=== PATIENT | male | born 1995 | race Caucasian/White ===

== ENCOUNTER 2018-04-04 15:07 | Emergency (ER) | payer SELFPAY ==
[2018-04-04] MEDS ORDERED: ACETAMINOPHEN 500 MG TAB ONE (15:54)
--- NOTE | 2018-04-04 16:31 | EDPHYS ---
Physician Documentation [facility] Name: Abdelrahman Chavez Age: 22 yrs Sex: Male : 1995 Arrival Date: 04/04/2018 Time: 15:11 Bed 25 Private MD: ED Physician Dada Gracia HPI: 04/04 15:41 This 22 yrs old Male presents to ER via Ambulatory with complaints of Flu jr8 symptoms. 15:41 Onset: The symptoms/episode began/occurred acutely, today. Duration: The symptoms are jr8 continuous. The patient's shortness of breath is aggravated by coughing. Associated signs and symptoms: Pertinent positives: non-productive cough, fever, sore throat, rhinorrhea . Severity of symptoms: At their worst the symptoms were moderate in the emergency department the symptoms are unchanged. The patient has not experienced similar symptoms in the past. The patient has not recently seen a physician. Historical: - Allergies: 15:18 No Known Allergies; aj - Home Meds: 15:18 None [Active]; aj - PMHx: 15:18 Anxiety; Depression; aj - PSHx: 15:18 None; aj - Immunization history:: Adult Immunizations up to date. - Social history:: Smoking status: Patient/guardian denies using tobacco, Patient uses street drugs, marijuana. - Ebola Screening: : Patient negative for fever greater than or equal to 101.5 degrees Fahrenheit, and additional compatible Ebola Virus Disease symptoms Patient denies exposure to infectious person Patient denies travel to an Ebola-affected area in the 21 days before illness onset No symptoms or risks identified at this time. ROS: 15:41 Eyes: Negative for injury, pain, redness, and discharge, Neck: Negative for injury, jr8 pain, and swelling, Cardiovascular: Negative for chest pain, palpitations, and edema, Abdomen/GI: Negative for abdominal pain, nausea, vomiting, diarrhea, and constipation, Back: Negative for injury and pain, MS/Extremity: Negative for injury and deformity, Skin: Negative for injury, rash, and discoloration, Neuro: Negative for headache, weakness, numbness, tingling, and seizure. 15:41 Constitutional: Positive for body aches, chills, fever. 15:41 ENT: Positive for rhinorrhea, sinus congestion, sore throat. 15:41 Respiratory: Positive for cough, shortness of breath, wheezing, Negative for dyspnea on exertion, sputum production. Exam: 15:41 Constitutional: This is a well developed, well nourished patient who is awake, alert, jr8 and in no acute distress. Eyes: Pupils equal round and reactive to light, extra-ocular motions intact. Lids and lashes normal. Conjunctiva and sclera are non-icteric and not injected. Cornea within normal limits. Periorbital areas with no swelling, redness, or edema. ENT: Nares patent. No nasal discharge, no septal abnormalities noted. Tympanic membranes are normal and external auditory canals are clear. Oropharynx with no redness, swelling, or masses, exudates, or evidence of obstruction, uvula midline. Mucous membranes moist. Neck: Trachea midline, no thyromegaly or masses palpated, and no cervical lymphadenopathy. Supple, full range of motion without nuchal rigidity, or vertebral point tenderness. No Meningismus. Cardiovascular: Sinus tachycardia with a normal S1 and S2. No gallops, murmurs, or rubs. Normal PMI, no JVD. No pulse deficits. Respiratory: Lungs have equal breath sounds bilaterally, clear to auscultation and percussion. No rales, rhonchi or wheezes noted. No increased work of breathing, no retractions or nasal flaring. Abdomen/GI: Soft, non-tender, with normal bowel sounds. No distension or tympany. No guarding or rebound. No evidence of tenderness throughout. Back: No spinal tenderness. No costovertebral tenderness. Full range of motion. Skin: Warm, dry with normal turgor. Normal color with no rashes, no lesions, and no evidence of cellulitis. MS/ Extremity: Pulses equal, no cyanosis. Neurovascular intact. Full, normal range of motion. Neuro: Awake and alert, GCS 15, oriented to person, place, time, and situation. Cranial nerves II-XII grossly intact. Motor strength 5/5 in all extremities. Sensory grossly intact. Cerebellar exam normal. Normal gait. Vital Signs: 15:18 BP 129 / 96; Pulse 119; Resp 21; Temp 100.7; Pulse Ox 99% on R/A; Weight 147.42 kg; aj Height 5 ft. 8 in. (172.72 cm); 17:17 BP 113 / 76; Pulse 83; Resp 17; Temp 99.2(O); Pulse Ox 100% on R/A; Pain 4/10; ed1 15:18 Body Mass Index 49.42 (147.42 kg, 172.72 cm) aj MDM: 15:21 Patient medically screened. jr8 16:28 Data reviewed: vital signs, nurses notes, lab test result(s), Flu: positive. Data jr8 interpreted: Pulse oximetry: on room air is 99 %. Interpretation: normal. Counseling: I had a detailed discussion with the patient and/or guardian regarding: the historical points, exam findings, and any diagnostic results supporting the discharge/admit diagnosis, lab results, the need for outpatient follow up, a family practitioner, to return to the emergency department if symptoms worsen or persist or if there are any questions or concerns that arise at home. 04/04 15:38 Order name: Strep; Complete Time: 16:28 8 04/04 15:38 Order name: Influenza Screen (a \T\ B); Complete Time: 16:28 [facility] 04/04 16:28 Order name: Throat Culture EDMS Administered Medications: 15:48 Drug: Tylenol 1000 mg Route: PO; ed1 17:19 Follow up: Response: No adverse reaction; Temperature is decreased ed1 16:40 Drug: Tamiflu 75 mg Route: PO; ed1 17:19 Follow up: Response: Medication administered at discharge. ed1 Disposition: 18:58 Co-signature as Attending Physician, Dada Gracia MD I agree with the assessment and kdr plan of care. Disposition: 04/04/18 16:29 Discharged to Home. Impression: Influenza due to identified novel influenza A virus. - Condition is Stable. - Discharge Instructions: Influenza, Adult. - Prescriptions for Tamiflu 75 mg Oral Capsule - take 1 capsule by ORAL route every 12 hours for 5 days; 10 capsule. - Medication Reconciliation Form, Thank You Letter, Antibiotic Education, Prescription Opioid Use form. - Follow up: Private Physician; When: As needed; Reason: Recheck today's complaints, Continuance of care, Re-evaluation by your physician. - Problem is new. - Symptoms have improved. Signatures: Dispatcher [employer] EDMS Etelvina Ford RN RN aj Rittger, Kevin, MD MD kdr Riggs, Erika, SENIOR IT ASSISTANT SENIOR IT ASSISTANT ed1 Spencer Jones PA PA jr8 Corrections: (The following items were deleted from the chart) 17:20 16:29 04/04/2018 16:29 Discharged to Home. Impression: Influenza due to identified ed1 novel influenza A virus. Condition is Stable. Forms are Medication Reconciliation Form, Thank You Letter, Antibiotic Education, Prescription Opioid Use. Follow up: Private Physician; When: As needed; Reason: Recheck today's complaints, Continuance of care, Re-evaluation by your physician. Problem is new. Symptoms have improved. jr8
--- NOTE | 2018-04-04 16:31 | ER ---
Nurse's Notes [facility] Name: Abdelrahman Chavez Age: 22 yrs Sex: Male : 1995 Arrival Date: 04/04/2018 Time: 15:11 Bed 25 Private MD: Diagnosis: Influenza due to identified novel influenza A virus Presentation: 04/04 15:17 Presenting complaint: Patient states: Cough, congestion, sore throat, and SOB for 10 aj days. Transition of care: patient was not received from another setting of care. Onset of symptoms was March 25, 2018. Risk Assessment: Do you want to hurt yourself or someone else? Patient reports no desire to harm self or others. Initial Sepsis Screen: Does the patient meet any 2 criteria? HR > 90 bpm. Does the patient have a suspected source of infection? No. Patient's initial sepsis screen is negative. Care prior to arrival: None. 15:17 Method Of Arrival: Ambulatory 15:17 Acuity: NEAL 3 aj Triage Assessment: 15:18 General: Appears in no apparent distress. comfortable, Behavior is calm, cooperative, aj appropriate for age. Pain: Denies pain. EENT: Reports nasal congestion nasal discharge pain when swallowing. Neuro: Level of Consciousness is awake, alert, obeys commands, Oriented to person, place, time, situation, Appropriate for age. Respiratory: Reports shortness of breath cough that is Airway is patent Respiratory effort is even, unlabored, Respiratory pattern is regular, symmetrical, Breath sounds are clear Onset: The symptoms/episode began/occurred 1- days ago, the patient has mild shortness of breath. Derm: Skin is intact, is healthy with good turgor, Skin is pink, warm \T\ dry. normal. Historical: - Allergies: 15:18 No Known Allergies; aj - Home Meds: 15:18 None [Active]; aj - PMHx: 15:18 Anxiety; Depression; aj - PSHx: 15:18 None; aj - Immunization history:: Adult Immunizations up to date. - Social history:: Smoking status: Patient/guardian denies using tobacco, Patient uses street drugs, marijuana. - Ebola Screening: : Patient negative for fever greater than or equal to 101.5 degrees Fahrenheit, and additional compatible Ebola Virus Disease symptoms Patient denies exposure to infectious person Patient denies travel to an Ebola-affected area in the 21 days before illness onset No symptoms or risks identified at this time. Screenin:30 Abuse screen: Denies threats or abuse. Denies injuries from another. Nutritional ed1 screening: No deficits noted. Tuberculosis screening: No symptoms or risk factors identified. Fall Risk None identified. Assessment: 15:30 General: Appears in no apparent distress. Behavior is calm, cooperative. Pain: ed1 Complains of pain in generalized Pain does not radiate. Pain currently is 5 out of 10 on a pain scale. Quality of pain is described as aching, Pain began 2-3 days ago. Is continuous. Neuro: Level of Consciousness is awake, alert, obeys commands, Oriented to person, place, time, situation. Cardiovascular: Denies chest pain, Heart tones S1 S2 present. Cardiovascular: Rhythm is regular. Respiratory: Reports shortness of breath on exertion Airway is patent Respiratory effort is even, unlabored, Respiratory pattern is regular, symmetrical. GI: No signs and/or symptoms were reported involving the gastrointestinal system. : No signs and/or symptoms were reported regarding the genitourinary system. EENT: Reports pain when swallowing. Derm: Skin is pink, warm \T\ dry. 15:50 Reassessment: Patient appears in no apparent distress at this time. I agree with above iw assessment by Elena SHIELDS. 17:17 Reassessment: Patient appears in no apparent distress at this time. No changes from ed1 previously documented assessment. Patient and/or family updated on plan of care and expected duration. Pain level reassessed. Patient is alert, oriented x 3, equal unlabored respirations, skin warm/dry/pink. Vital Signs: 15:18 BP 129 / 96; Pulse 119; Resp 21; Temp 100.7; Pulse Ox 99% on R/A; Weight 147.42 kg; aj Height 5 ft. 8 in. (172.72 cm); 17:17 BP 113 / 76; Pulse 83; Resp 17; Temp 99.2(O); Pulse Ox 100% on R/A; Pain 4/10; ed1 15:18 Body Mass Index 49.42 (147.42 kg, 172.72 cm) aj ED Course: 15:11 Patient arrived in ED. mr 15:18 Triage completed. aj 15:18 Arm band placed on left wrist. Patient placed in an exam room. aj 15:21 Spencer Jones PA is PHCP. jr8 15:21 Dada Gracia MD is Attending Physician. jr8 15:28 Elena Morgan LVN is Primary Nurse. ed1 15:30 Patient has correct armband on for positive identification. Bed in low position. Call ed1 light in reach. 17:17 No provider procedures requiring assistance completed. Patient did not have IV access ed1 during this emergency room visit. Administered Medications: 15:48 Drug: Tylenol 1000 mg Route: PO; ed1 17:19 Follow up: Response: No adverse reaction; Temperature is decreased ed1 16:40 Drug: Tamiflu 75 mg Route: PO; ed1 17:19 Follow up: Response: Medication administered at discharge. ed1 Outcome: 16:29 Discharge ordered by MD. jr8 17:17 Discharged to home ambulatory. ed1 17:17 Condition: good 17:17 Discharge instructions given to patient, Instructed on discharge instructions, follow up and referral plans. medication usage, Demonstrated understanding of instructions, follow-up care, medications, Prescriptions given X 1. 17:20 Patient left the ED. ed1 Signatures: Etelvina Ford, RN Eugenia Peterson Irene, RN Elena Piper LVN LVN ed1 Spencer Jones PA PA jr
[2018-04-04] MEDS ORDERED: OSELTAMIVIR 75 MG CAP ONE (16:58)
== END 2018-04-04 17:20 | disposition home or self-care (01) ==
LOC: ER 15:07
DX: J10.1 Influenza due to other identified influenza virus with other respiratory manifestations (principal)
CPT/HCPCS: 87070; 87081; 87804; 99283

== ENCOUNTER 2019-07-01 | Emergency (ER) | payer SELFPAY ==
--- NOTE | 2019-07-01 08:57 | EDPHYS ---
Physician Documentation [facility] Name: Abdelrahman Chavez Age: 23 yrs Sex: Male : 1995 Arrival Date: 07/01/2019 Time: 06:24 Bed 8 Private MD: ED Physician Carlos A Noble HPI: 07/01 07:00 This 23 yrs old Male presents to ER via Ambulatory with complaints of Ear kb Pain, Side Pain. 07:00 The patient presents with pain, moderate. The complaints affect the left ear. Modifying kb factors: The symptoms are alleviated by nothing, the symptoms are aggravated by pulling on ears, touching. The patient has not experienced similar symptoms in the past. The patient has not recently seen a physician. 07:01 Onset: The symptoms/episode began/occurred 4 day(s) ago. Associated signs and symptoms: kb The patient has no apparent associated signs or symptoms. Severity of symptoms: At their worst the symptoms were moderate in the emergency department the symptoms are unchanged. Pt reports left ear pain for about 4 days and sciatic pain for 3 months. Denies urinary symptoms, numbness, tingling.. Historical: - Allergies: 06:41 No Known Allergies; bb - Home Meds: 06:41 None [Active]; bb - PMHx: 06:41 Anxiety; Depression; bb - PSHx: 06:41 None; bb - Immunization history:: Adult Immunizations up to date. - Coronavirus screen:: The patient has NOT traveled to [place] in the past 14 days. Proceed with normal triage process as indicated. - Social history:: Smoking status: unknown Patient uses street drugs, marijuana. - Ebola Screening: : No symptoms or risks identified at this time. ROS: 06:54 Constitutional: Negative for fever, chills, and weight loss, Neck: Negative for injury, kb pain, and swelling, Cardiovascular: Negative for chest pain, palpitations, and edema, Respiratory: Negative for shortness of breath, cough, wheezing, and pleuritic chest pain, Abdomen/GI: Negative for abdominal pain, nausea, vomiting, diarrhea, and constipation, : Negative for injury, bleeding, discharge, and swelling, MS/Extremity: Negative for injury and deformity, Skin: Negative for injury, rash, and discoloration, Neuro: Negative for headache, weakness, numbness, tingling, and seizure. 06:54 ENT: Positive for drainage from ear(s), ear pain. 06:54 Back: Positive for pain at rest, pain with movement, radiated pain, of the left low back. Exam: 06:54 Constitutional: This is a well developed, well nourished patient who is awake, alert, kb and in no acute distress. Head/Face: Normocephalic, atraumatic. Neck: Trachea midline, no thyromegaly or masses palpated, and no cervical lymphadenopathy. Supple, full range of motion without nuchal rigidity, or vertebral point tenderness. No Meningismus. Chest/axilla: Normal chest wall appearance and motion. Nontender with no deformity. No lesions are appreciated. Cardiovascular: Regular rate and rhythm with a normal S1 and S2. No gallops, murmurs, or rubs. Normal PMI, no JVD. No pulse deficits. Respiratory: Lungs have equal breath sounds bilaterally, clear to auscultation and percussion. No rales, rhonchi or wheezes noted. No increased work of breathing, no retractions or nasal flaring. Abdomen/GI: Soft, non-tender, with normal bowel sounds. No distension or tympany. No guarding or rebound. No evidence of tenderness throughout. Skin: Warm, dry with normal turgor. Normal color with no rashes, no lesions, and no evidence of cellulitis. MS/ Extremity: Pulses equal, no cyanosis. Neurovascular intact. Full, normal range of motion. Neuro: Awake and alert, GCS 15, oriented to person, place, time, and situation. Cranial nerves II-XII grossly intact. Motor strength 5/5 in all extremities. Sensory grossly intact. Cerebellar exam normal. Normal gait. 06:54 ENT: External ear(s): are unremarkable, Ear canal(s): purulent discharge, that is minimal, in the left canal, swelling, that is moderate, of the left canal, TM's: are normal, Nose: is normal, Mouth: is normal. 06:54 Back: pain, that is moderate, of the left low back, ROM is normal, normal spinal alignment noted. Vital Signs: 06:41 BP 132 / 50; Pulse 80; Resp 16 S; Temp 98.4(O); Pulse Ox 100% on R/A; Weight 131.54 kg bb (R); Height 5 ft. 9 in. (175.26 cm) (R); Pain 8/10; 06:41 Body Mass Index 42.83 (131.54 kg, 175.26 cm) bb MDM: 06:29 Patient medically screened. kb 06:46 Data reviewed: vital signs, nurses notes. Data interpreted: Pulse oximetry: on room air kb is 100 %. Interpretation: normal. 07:00 Counseling: I had a detailed discussion with the patient and/or guardian regarding: the kb historical points, exam findings, and any diagnostic results supporting the discharge/admit diagnosis, the need for outpatient follow up, a family practitioner, to return to the emergency department if symptoms worsen or persist or if there are any questions or concerns that arise at home. Administered Medications: No medications were administered Disposition: 07:09 Co-signature as Attending Physician, Carlos A Noble MD I agree with the assessment and andrew plan of care. Disposition: 07/01/19 06:50 Discharged to Home. Impression: Other otitis externa, left ear, Sciatica, left side. - Condition is Stable. - Discharge Instructions: Ear Drops, Adult, [id number], Sciatica, [id number]. - Prescriptions for Cortisporin 3.5- 10,000-1 mg/mL-unit/mL-% Otic solution - instill 4 drop by OTIC route 4 times per day for 7 days; 1 bottle. Cyclobenzaprine 10 mg Oral Tablet - take 1 tablet by ORAL route every 8 hours As needed; 30 tablet. Diclofenac Sodium 75 mg Oral Tablet Sustained Release - take 1 tablet by ORAL route 2 times per day; 30 tablet. - Medication Reconciliation Form, Thank You Letter, Antibiotic Education, Prescription Opioid Use form. - Follow up: Emergency Department; When: As needed; Reason: Worsening of condition. Follow up: Private Physician; When: 2 - 3 days; Reason: Recheck today's complaints, Continuance of care, Re-evaluation by your physician. Signatures: Chloé Saez, TERESA GIBBS-Carlos A Desir MD MD cha Ballard, Brenda, LYLE RN Mike Watson RN RN rv Corrections: (The following items were deleted from the chart) 07:02 07:01 Pt reports left ear pain for about 4 days and sciatic pain for 3 months. . kb kb 07:07 06:50 07/01/2019 06:50 Discharged to Home. Impression: Other otitis externa, left ear; rv Sciatica, left side. Condition is Stable. Forms are Medication Reconciliation Form, Thank You Letter, Antibiotic Education, Prescription Opioid Use. Follow up: Emergency Department; When: As needed; Reason: Worsening of condition. Follow up: Private Physician; When: 2 - 3 days; Reason: Recheck today's complaints, Continuance of care, Re-evaluation by your physician. kb
--- NOTE | 2019-07-01 08:57 | ER ---
Nurse's Notes [facility] Name: Abdelrahman Chavez Age: 23 yrs Sex: Male : 1995 Arrival Date: 07/01/2019 Time: 06:24 Bed 8 Private MD: Diagnosis: Other otitis externa, left ear;Sciatica, left side Presentation: 07/01 06:39 Presenting complaint: Patient states: he has been having an earache and toothache since this weekend with swelling to his face he is also still having sciatic nerve pain which he has a history of but it hasn't gone away since [place]. Transition of care: patient was not received from another setting of care. Onset of symptoms was June 29, 2019. Risk Assessment: Do you want to hurt yourself or someone else? Patient reports no desire to harm self or others. Initial Sepsis Screen: Does the patient meet any 2 criteria? No. Patient's initial sepsis screen is negative. Does the patient have a suspected source of infection? No. Patient's initial sepsis screen is negative. Care prior to arrival: None. 06:39 Method Of Arrival: Ambulatory 06:39 Acuity: NEAL 3 bb Triage Assessment: 07:06 General: Behavior is calm, cooperative. rv Historical: - Allergies: 06:41 No Known Allergies; bb - Home Meds: 06:41 None [Active]; bb - PMHx: 06:41 Anxiety; Depression; bb - PSHx: 06:41 None; bb - Immunization history:: Adult Immunizations up to date. - Coronavirus screen:: The patient has NOT traveled to [place] in the past 14 days. Proceed with normal triage process as indicated. - Social history:: Smoking status: unknown Patient uses street drugs, marijuana. - Ebola Screening: : No symptoms or risks identified at this time. Screenin:06 Abuse screen: Denies threats or abuse. Denies injuries from another. Nutritional rv screening: No deficits noted. Tuberculosis screening: No symptoms or risk factors identified. Fall Risk None identified. Assessment: 07:05 General: Appears in no apparent distress. Pain: Complains of pain in left ear. Neuro: rv Level of Consciousness is awake, alert, obeys commands, Oriented to person, place, time, situation. Cardiovascular: Patient's skin is warm and dry. Respiratory: Airway is patent. EENT: Tympanic membrane reddened on left ear. Vital Signs: 06:41 BP 132 / 50; Pulse 80; Resp 16 S; Temp 98.4(O); Pulse Ox 100% on R/A; Weight 131.54 kg bb (R); Height 5 ft. 9 in. (175.26 cm) (R); Pain 8/10; 06:41 Body Mass Index 42.83 (131.54 kg, 175.26 cm) ED Course: 06:24 Patient arrived in ED. cl3 06:25 Chloé Saez [facility]-C [facility]. kb 06:25 Carlos A Noble MD is Attending Physician. kb 06:41 Triage completed. bb 06:41 Arm band placed on Patient placed in an exam room. bb 07:05 Mike Francois, RN is Primary Nurse. rv 07:06 Patient has correct armband on for positive identification. rv 07:06 No provider procedures requiring assistance completed. Patient did not have IV access rv during this emergency room visit. Administered Medications: No medications were administered Outcome: 06:50 Discharge ordered by MD. kb 07:06 Discharged to home ambulatory. rv 07:06 Condition: good 07:06 Discharge instructions given to patient, family, Instructed on discharge instructions, follow up and referral plans. medication usage, Demonstrated understanding of instructions, follow-up care, medications, Prescriptions given X 3. 07:07 Patient left the ED. rv Signatures: Chloé Saez FNP-C FNP-Ckb Ballard, Brenda, RN RN bb Vicente, Ronaldo, RN RN Elodia Brown cl3
== END 2019-07-01 07:07 | disposition home or self-care (01) ==
CPT/HCPCS: 99282

== ENCOUNTER 2019-10-21 14:09 | Inpatient (IN) | payer SELFPAY ==
[2019-10-21 15:54] LABS: Absolute Lymphocytes (CBC) 1.7 K/uL (0.7-4.9); Basophils % 0.4 % (0-1.3); Hematocrit 51.4 % (39.6-49.0); Lymphocytes % 9.7 % (15.3-44.8); MPV 9.7 fL (7.6-11.3); RBC Red Blood Cell Count 5.93 M/uL (4.33-5.43)
[2019-10-21] MEDS ORDERED: FAMOTIDINE 20 MG/2 ML VIAL IV ONE (15:57)
[2019-10-21] MEDS ORDERED: MORPHINE 4 MG/ML SYR ONE (16:29)
[2019-10-21] MEDS ORDERED: ONDANSETRON 4 MG/2 ML VIAL ONE (16:29)
[2019-10-21] MEDS ORDERED: NA CHLORIDE 0.9% 1,000 ML ONE (16:29)
[2019-10-21 16:31] LABS: ALT/SGPT 43 U/L (12-78); AST/SGOT 18 U/L (15-37); Alkaline Phosphatase 94 U/L (45-117); BUN Blood Urea Nitrogen 10 mg/dL (7-18); Bicarbonate 29 mmol/L (21-32); Bilirubin Direct 0.2 mg/dL (0-0.2); Bilirubin Total 0.7 mg/dL (0.2-1.0); Glucose Level 110 mg/dL (74-106); Lipase 24 U/L (73-393); Potassium 3.5 mmol/L (3.5-5.1); Protein, Total 8.5 g/dL (6.4-8.2); Sodium Level 139 mmol/L (136-145)
--- NOTE | 2019-10-21 17:15 | RAD REPORT ---
EXAM DESCRIPTION: US - Abdomen Exam Limited - 10/21/2019 5:06 pm CLINICAL HISTORY: ABD PAIN COMPARISON: No comparisons FINDINGS: The gallbladder demonstrates no gallstones. No pericholecystic fluid or gallbladder wall t hickening. The common bile duct is normal measuring 3 mm. The liver demonstrates no findings of intrahepatic biliary dilatation. IMPRESSION: Unremarkable examination.
--- NOTE | 2019-10-21 17:17 | RAD REPORT ---
EXAM DESCRIPTION: CTAbdomen Pelvis W Contrast - 10/21/2019 5:09 pm CLINICAL HISTORY: Abdominal pain. ABDOMINAL DISTENTION COMPARISON: No comparisons TECHNIQUE: Biphasic CT imaging of the abdomen and pelvis was performed with 100 ml non-ionic IV cont rast. All CT scans are performed using dose optimization technique as appropriate and may include automated exposure control or mA/KV adjustment according to patient size. FINDINGS: The lung bases are clear. The liver demonstrates fatty liver. The spleen, pancreas, adrenal glands and kidneys are within veronica l limits. No bowel obstruction, free air, free fluid or abscess. The appendix is normal. No evidence of signi ficant lymphadenopathy. No suspicious bony findings. IMPRESSION: No acute intra-abdominal or pelvic finding.
--- NOTE | 2019-10-21 17:43 | EDPHYS ---
Physician Documentation [facility] Name: Abdelrahman Chavez Age: 23 yrs Sex: Male : 1995 Arrival Date: 10/21/2019 Time: 14:10 Bed 2 Private MD: ED Physician Carlos A Noble HPI: 10/20 16:14 This 23 yrs old Male presents to ER via Ambulatory with complaints of andrew Abdominal Pain, Headache, Dizziness, Numbness. 16:14 The patient complains of pain to the forehead. andrew Historical: - Allergies: 14:22 No Known Allergies; ll1 - PMHx: 14:22 Depression; Anxiety; ll1 - PSHx: 14:22 None; ll1 - Immunization history:: Adult Immunizations up to date. - Social history:: Smoking status: Patient denies any tobacco usage or history of. Patient uses street drugs, marijuana, Patient/guardian denies using alcohol, tobacco products. - Family history:: not pertinent. ROS: 16:14 Constitutional: Negative for fever, chills, and weight loss, Eyes: Negative for injury, andrew pain, redness, and discharge, ENT: Negative for injury, pain, and discharge, Neck: Negative for injury, pain, and swelling, Cardiovascular: Negative for chest pain, palpitations, and edema, Respiratory: Negative for shortness of breath, cough, wheezing, and pleuritic chest pain, Back: Negative for injury and pain, : Negative for injury, bleeding, discharge, and swelling, MS/Extremity: Negative for injury and deformity, Skin: Negative for injury, rash, and discoloration, Neuro: Negative for headache, weakness, numbness, tingling, and seizure, Psych: Negative for depression, anxiety, suicide ideation, homicidal ideation, and hallucinations, Allergy/Immunology: Negative for hives, rash, and allergies, Endocrine: Negative for neck swelling, polydipsia, polyuria, polyphagia, and marked weight changes, Hematologic/Lymphatic: Negative for swollen nodes, abnormal bleeding, and unusual bruising. 16:14 Abdomen/GI: Positive for abdominal pain, nausea, abdominal cramps. Exam: 16:14 Constitutional: This is a well developed, well nourished patient who is awake, alert, andrew and in no acute distress. Head/Face: Normocephalic, atraumatic. Eyes: Pupils equal round and reactive to light, extra-ocular motions intact. Lids and lashes normal. Conjunctiva and sclera are non-icteric and not injected. Cornea within normal limits. Periorbital areas with no swelling, redness, or edema. ENT: Nares patent. No nasal discharge, no septal abnormalities noted. Tympanic membranes are normal and external auditory canals are clear. Oropharynx with no redness, swelling, or masses, exudates, or evidence of obstruction, uvula midline. Mucous membranes moist. Neck: Trachea midline, no thyromegaly or masses palpated, and no cervical lymphadenopathy. Supple, full range of motion without nuchal rigidity, or vertebral point tenderness. No Meningismus. Chest/axilla: Normal chest wall appearance and motion. Nontender with no deformity. No lesions are appreciated. Cardiovascular: Regular rate and rhythm with a normal S1 and S2. No gallops, murmurs, or rubs. Normal PMI, no JVD. No pulse deficits. Respiratory: Lungs have equal breath sounds bilaterally, clear to auscultation and percussion. No rales, rhonchi or wheezes noted. No increased work of breathing, no retractions or nasal flaring. Back: No spinal tenderness. No costovertebral tenderness. Full range of motion. Male : Normal genitalia with no discharge or lesions. Skin: Warm, dry with normal turgor. Normal color with no rashes, no lesions, and no evidence of cellulitis. MS/ Extremity: Pulses equal, no cyanosis. Neurovascular intact. Full, normal range of motion. Neuro: Awake and alert, GCS 15, oriented to person, place, time, and situation. Cranial nerves II-XII grossly intact. Motor strength 5/5 in all extremities. Sensory grossly intact. Cerebellar exam normal. Normal gait. Psych: Awake, alert, with orientation to person, place and time. Behavior, mood, and affect are within normal limits. 16:14 Abdomen/GI: Inspection: distension, Bowel sounds: normal, Palpation: moderate abdominal tenderness, in the epigastric area, right upper quadrant and left upper quadrant, Liver: no appreciated palpable abnormalities, Hernia: not appreciated. 17:39 Neck: ROM/movement: is normal, no acute changes, Meningeal signs: are not present, andrew Kernig's sign is negative, Brudzinski's sign is negative. Vital Signs: 14:18 BP 151 / 97; Pulse 95; Resp 18; Temp 97.5; Pulse Ox 100% ; Weight 142.88 kg; Height 5 ll1 ft. 8 in. (172.72 cm); Pain 5/10; 16:37 BP 144 / 92; Pulse 64; Resp 18; Pulse Ox 98% on R/A; Pain 3/10; em 18:54 BP 130 / 76; Pulse 79; Resp 18; Pulse Ox 98% on R/A; Pain 4/10; em 19:17 BP 141 / 77; Pulse 78; Resp 17 S; Pulse Ox 98% on R/A; jd3 14:18 Body Mass Index 47.90 (142.88 kg, 172.72 cm) ll1 [place] Coma Score: 16:16 Eye Response: spontaneous(4). Verbal Response: oriented(5). Motor Response: obeys andrew commands(6). Total: 15. MDM: 14:46 Patient medically screened. andrew 16:16 Differential diagnosis: sinusitis, appendicitis, cholecystitis, Cholelithiasis, andrew diverticulitis, gastritis, gastroesophageal reflux disease, non-specific abd pain, pancreatitis, Peptic Ulcer Disease, Peritonitis, urinary tract infection. Data reviewed: vital signs, nurses notes, lab test result(s), EKG, radiologic studies, CT scan, plain films, ultrasound. 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 Counseling: I had a detailed discussion with the patient and/or guardian regarding: the historical points, exam findings, and any diagnostic results supporting the discharge/admit diagnosis, lab results, radiology results, the need for further work-up and treatment in the hospital. 17:43 ED course: abd pain persist, neck supple, no meningismus, dw dr carrington will obs and andrew hydrate , no abx. 10/20 15:36 Order name: Basic Metabolic Panel; Complete Time: 17:11 em 10/20 15:36 Order name: CBC with Diff; Complete Time: 16:12 em 10/20 15:36 Order name: Hepatic Function; Complete Time: 17:11 em 10/20 15:36 Order name: Lipase; Complete Time: 17:11 em 10/20 17:54 Order name: LAB Add On eb 10/20 17:58 Order name: Procalcitonin; Complete Time: 19:10 EDSD 10/20 15:36 Order name: IV Saline Lock; Complete Time: 15:50 em 10/20 15:36 Order name: Labs collected and sent; Complete Time: 15:50 em 10/20 16:14 Order name: US Abdomen Limited; Complete Time: 17:36 [place] 10/20 16:14 Order name: CT Abd/Pelvis - IV Contrast Only; Complete Time: 17:36 [place] Administered Medications: 15:53 Drug: Pepcid 20 mg Route: IVP; Site: left antecubital; em 16:35 Follow up: Response: No adverse reaction; Marked relief of symptoms; Pain is decreased em 16:35 Drug: NS 0.9% 1000 ml Route: IV; Rate: 1 bolus; Site: left antecubital; em 19:12 Follow up: Response: No adverse reaction; IV Status: Completed infusion; IV Intake: ph 1000ml 19:53 Not Given (Patient Refused): morphine 4 mg IVP once; RASS on ADMIN: Combtv4, Very jd3 Agttd3, Agttd2, Rstlss1, AlertClm0, Drwsy-1, Lt Sdtn-2, Mod Sdtn-3, Dp Sdtn-4, UnArsble-5 19:53 Not Given (Patient Refused): Zofran (Ondansetron) 4 mg IVP once; over 2 minutes jd3 Disposition: 10/21/19 17:43 Hospitalization ordered by Dennis Carrington for Observation. Preliminary diagnosis are Abdominal tenderness, Elevated white blood cell count - 17K, Anorexia. - Bed requested for Telemetry/MedSurg (observation). - Status is Observation. mw2 - Condition is Stable. - Problem is new. - Symptoms have improved. Signatures: Dispatcher [employer] EDSD Carlos A Noble MD MD cha Munoz, Edgar, RN RN Jose F Bray RN RN byron1 Giorgio Zhu mw2 Sangita Espino Lynsay, RN RN ll1 Jessica Rios ph D, Jonathon RN jd3 Corrections: (The following items were deleted from the chart) 18:43 17:43 Hospitalization Ordered by Dennis Prezas DO for Observation. Preliminary eb diagnosis is Abdominal tenderness; Elevated white blood cell count; Anorexia. Bed requested for Telemetry/MedSurg (observation). Status is Observation. Condition is Stable. Problem is new. Symptoms have improved. andrew 18:44 18:43 10/21/2019 17:43 Hospitalization Ordered by [place] Rogerios DO for Observation. ja1 Preliminary diagnosis is Abdominal tenderness; Elevated white blood cell count; Anorexia. Bed requested for Telemetry/MedSurg (observation). Status is Observation. Condition is Stable. Problem is new. Symptoms have improved. eb 19:11 18:44 10/21/2019 17:43 Hospitalization Ordered by [place] Rogerios DO for Observation. andrew Preliminary diagnosis is Abdominal tenderness; Elevated white blood cell count; Anorexia. Bed requested for Telemetry/MedSurg (observation). Status is Observation. Condition is Stable. Problem is new. Symptoms have improved. ja1 20:08 19:11 10/21/2019 17:43 Hospitalization Ordered by Dennis Chinmay DO for Observation. mw2 Preliminary diagnosis is Abdominal tenderness; Elevated white blood cell count - 17K; Anorexia. Bed requested for Telemetry/MedSurg (observation). Status is Observation. Condition is Stable. Problem is new. Symptoms have improved. andrew
--- NOTE | 2019-10-21 17:43 | ER ---
Nurse's Notes [facility] Name: Abdelrahman Chavez Age: 23 yrs Sex: Male : 1995 Arrival Date: 10/21/2019 Time: 14:10 Bed 2 Private MD: Diagnosis: Abdominal tenderness;Elevated white blood cell count-17K;Anorexia Presentation: 10/20 14:18 Chief complaint: Patient states: Hands and feet numb/tingly for 5 days. MORFIN with ll1 dizziness for 2 weeks. Abdominal discomfort with N/V for 3 days. No fever. Coronavirus screen: Proceed with normal triage. Patient denies a cough. Patient denies shortness of breath or difficulty breathing. Patient denies measured and/or subjective temperature greater than 100.4F prior to today's visit. Patient denies travel on a cruise ship or to a country the [facility] currently lists as an affected area. Patient denies contact with known and/or suspected case of COVID-19. Ebola Screen: Patient denies travel to an Ebola-affected area in the 21 days before illness onset. Initial Sepsis Screen: Does the patient meet any 2 criteria? HR > 90 bpm. No. Patient's initial sepsis screen is negative. Does the patient have a suspected source of infection? No. Patient's initial sepsis screen is negative. Risk Assessment: Do you want to hurt yourself or someone else? Patient reports desire/thoughts of hurting themselves or someone else. Provider notified. Onset of symptoms was October 06, 2019. 14:18 Method Of Arrival: Ambulatory ll1 14:18 Acuity: NEAL 3 ll1 Historical: - Allergies: 14:22 No Known Allergies; ll1 - PMHx: 14:22 Depression; Anxiety; ll1 - PSHx: 14:22 None; ll1 - Immunization history:: Adult Immunizations up to date. - Social history:: Smoking status: Patient denies any tobacco usage or history of. Patient uses street drugs, marijuana, Patient/guardian denies using alcohol, tobacco products. - Family history:: not pertinent. Screenin:28 Abuse screen: Denies threats or abuse. Nutritional screening: No deficits noted. em Tuberculosis screening: No symptoms or risk factors identified. Fall Risk None identified. Assessment: 15:20 General: Appears in no apparent distress. comfortable, Behavior is calm, cooperative, em appropriate for age, Denies fever, reports being slightly anxious . Pain: Complains of pain in abdomen Pain currently is 5 out of 10 on a pain scale. Pain began 5 days ago. Neuro: Level of Consciousness is awake, alert, obeys commands, Oriented to person, place, time, situation, Appropriate for age Reports dizziness. Cardiovascular: Denies chest pain, Capillary refill < 3 seconds Patient's skin is warm and dry. Respiratory: Airway is patent Respiratory effort is even, unlabored, Respiratory pattern is regular, symmetrical, Denies cough. GI: Abdomen is round non-distended, Bowel sounds present X 4 quads. Abd is soft X 4 quads Abdomen is tender to palpation in abdomen diffusely Reports nausea. Derm: Skin is intact, is healthy with good turgor, Skin is pink, warm \T\ dry. Musculoskeletal: Capillary refill < 3 seconds, Range of motion: intact in all extremities. 16:37 Reassessment: Patient appears in no apparent distress at this time. Patient and/or em family updated on plan of care and expected duration. Pain level reassessed. Patient is alert, oriented x 3, equal unlabored respirations, skin warm/dry/pink. rates pain 3/10 after Pepcid, will hold medication, instructed to notify nurse if pain 5/10 or greater. 17:51 Reassessment: Patient appears in no apparent distress at this time. Patient and/or em family updated on plan of care and expected duration. Pain level reassessed. Patient is alert, oriented x 3, equal unlabored respirations, skin warm/dry/pink. Dr. Moy at bedside. 18:43 Reassessment: Patient appears in no apparent distress at this time. Patient and/or em family updated on plan of care and expected duration. Pain level reassessed. Patient is alert, oriented x 3, equal unlabored respirations, skin warm/dry/pink. pt is currently NPO. 19:17 General: Appears in no apparent distress. comfortable, Behavior is calm, cooperative, jd3 appropriate for age. Pain: Denies pain. Neuro: Level of Consciousness is awake, alert, obeys commands, Oriented to person, place, time, situation. Cardiovascular: Denies chest pain, Capillary refill < 3 seconds Patient's skin is warm and dry. Respiratory: Airway is patent Respiratory effort is even, unlabored, Respiratory pattern is regular, symmetrical, Denies cough, shortness of breath. GI: Abdomen is round non-distended, Abd is soft and non tender X 4 quads. : No signs and/or symptoms were reported regarding the genitourinary system. EENT: No signs and/or symptoms were reported regarding the EENT system. Derm: Skin is intact, Skin is dry, Skin is normal, Skin temperature is warm. Musculoskeletal: Circulation, motion, and sensation intact. Range of motion: intact in all extremities. 19:51 Reassessment: Patient appears in no apparent distress at this time. No changes from jd3 previously documented assessment. Patient and/or family updated on plan of care and expected duration. Pain level reassessed. Patient is alert, oriented x 3, equal unlabored respirations, skin warm/dry/pink. report given to Latasha ALVARENGA. Vital Signs: 14:18 BP 151 / 97; Pulse 95; Resp 18; Temp 97.5; Pulse Ox 100% ; Weight 142.88 kg; Height 5 ll1 ft. 8 in. (172.72 cm); Pain 5/10; 16:37 BP 144 / 92; Pulse 64; Resp 18; Pulse Ox 98% on R/A; Pain 3/10; em 18:54 BP 130 / 76; Pulse 79; Resp 18; Pulse Ox 98% on R/A; Pain 4/10; em 19:17 BP 141 / 77; Pulse 78; Resp 17 S; Pulse Ox 98% on R/A; jd3 14:18 Body Mass Index 47.90 (142.88 kg, 172.72 cm) ll1 [place] Coma Score: 16:16 Eye Response: spontaneous(4). Verbal Response: oriented(5). Motor Response: obeys andrew commands(6). Total: 15. ED Course: 14:10 Patient arrived in ED. ag5 14:22 Triage completed. ll1 14:23 Arm band placed on Patient notified of wait time. ll1 14:46 Carlso A Noble MD is Attending Physician. andrew 14:47 Jessica Rios RN is Primary Nurse. ph 15:28 Patient has correct armband on for positive identification. Bed in low position. Call em light in reach. 15:45 Initial lab(s) drawn, by me, sent to lab. Inserted saline lock: 20 gauge in left em antecubital area, using aseptic technique. Blood collected. 17:07 US Abdomen Limited In Process Unspecified. EDMS 17:09 CT Abd/Pelvis - IV Contrast Only In Process Unspecified. EDMS 17:42 Dennis Moy DO is Hospitalizing Provider. andrew 19:13 No provider procedures requiring assistance completed. Patient admitted, IV remains in ph place. Administered Medications: 15:53 Drug: Pepcid 20 mg Route: IVP; Site: left antecubital; em 16:35 Follow up: Response: No adverse reaction; Marked relief of symptoms; Pain is decreased em 16:35 Drug: NS 0.9% 1000 ml Route: IV; Rate: 1 bolus; Site: left antecubital; em 19:12 Follow up: Response: No adverse reaction; IV Status: Completed infusion; IV Intake: ph 1000ml 19:53 Not Given (Patient Refused): morphine 4 mg IVP once; RASS on ADMIN: Combtv4, Very jd3 Agttd3, Agttd2, Rstlss1, AlertClm0, Drwsy-1, Lt Sdtn-2, Mod Sdtn-3, Dp Sdtn-4, UnArsble-5 19:53 Not Given (Patient Refused): Zofran (Ondansetron) 4 mg IVP once; over 2 minutes jd3 Intake: 19:12 IV: 1000ml; Total: 1000ml. ph Outcome: 17:43 Decision to Hospitalize by Provider. andrew 19:51 Admitted to Med/surg accompanied by tech, via wheelchair, room 214, with chart, Report jd3 called to Latasha ALVARENGA 19:51 Condition: stable 19:51 Instructed on the need for admit, Demonstrated understanding of instructions. 20:08 Patient left the ED. mw2 Signatures: Dispatcher [employer] Carlos A Figueroa MD MD cha Munoz, Edgar, RN RN Jessica Albert RN Abdelrahman Lyle ph D, RN RN jd3 [place], MyKena mw2 Renzo Joseph ag5 Taqueria Luo RN RN ll1
--- NOTE | 2019-10-21 18:24 | P.HP ---
Certification for Inpatient Patient admitted to: Observation With expected LOS: <2 Midnights Patient will require the following post-hospital care: None Practitioner: I am a practitioner with admitting privileges, knowledge of patient current condition, hospital course, and medical plan of care. Services: Services provided to patient in accordance with Admission requirements found in Title 42 Section 412.3 of the Code of Federal Regulations Patient History Date of Service: 10/21/19 Primary Care Provider: None Reason for admission: Epigasatric pain, nausea History of Present Illness: 23-year-old male presented to emergency room with epigastric abdominal pain with nausea and vomiting. This apparently started this past Sunday. He has not been able to eat over the last 2 days. He reports increased nausea, vomiting. He also reports some dizziness. Epigastric pain he rates around 7/10. It does not radiate. He mentions no history of recent nonsteroidal anti- inflammatory use. He denies any recent abnormal food taken. No sick contacts noted. In the ER patient was evaluated. White count 17.4. Pro calcitonin pending. CMP unremarkable. Abdominal ultrasound unremarkable. CT scan did not show any acute finding. Patient was given medication for nausea and vomiting as well as for pain. Patient admitted for further evaluation. When I saw the patient ER, he appeared stable. Pain was still present to the epigastric region. Patient portion or history of GERD or ulcers in the past. He does admit marijuana use and tobacco use. Allergies NKDA Allergy (Uncoded 06/20/15 08:45) Unknown No Known All Allergy (Uncoded 12/09/16 14:09) Unknown - Past Medical/Surgical History Diabetic: No Past Medical History: Patient denies medical history -: Tobacco abuse -: Marijuana use Past Surgical History: Patient denies surgical history Psychosocial/ Personal History: Patient lives at home. He is single. - Family History Family History: Reviewed- Non-Contributory - Social History Smoking Status: Light Tobacco smoker (1-9 cigarettes/day) Counseled patient to stop smoking for: less than 10 minutes Smoking therapy provided: Yes Patient receptive to therapy: Yes Alcohol use: No CD- Drugs: Yes Caffeine use: Yes Place of Residence: Home Review of Systems General: As per HPI Eyes: Unremarkable ENT: Unremarkable Respiratory: Unremarkable Cardiovascular: Light Headedness, As per HPI Gastrointestinal: Nausea, Vomiting, Abdominal Pain, As per HPI Genitourinary: Unremarkable Musculoskeletal: Unremarkable Integumentary: Unremarkable Neurological: Unremarkable Lymphatics: Unremarkable Physical Examination - Physical Exam General: Alert, In no apparent distress, Oriented x3, Cooperative HEENT: Atraumatic, Mucous membr. moist/pink Neck: Supple, No Thyromegaly Respiratory: Clear to auscultation bilaterally, Normal air movement Cardiovascular: Normal pulses, Regular rate/rhythm Gastrointestinal: Normal bowel sounds, Soft and benign, Non-distended, Tenderness (Epigastric tenderness noted.) Integumentary: No tenderness/swelling, No erythema, No warmth, No cyanosis Neurological: Normal speech, Normal strength at 5/5 x4 extr, Normal tone, Normal affect - Studies Laboratory Data (last 24 hrs) 10/21/19 15:45: WBC 17.4 H, Hgb 17.1, Hct 51.4 H, Plt Count 251 10/21/19 15:45: Sodium 139, Potassium 3.5, BUN 10, Creatinine 0.93, Glucose 110 H, Total Bilirubin 0.7, AST 18, ALT 43, Alkaline Phosphatase 94, Lipase 24 L Assessment and Plan - Plan Impression: Epigastric abdominal pain with nausea and vomiting etiology unknown, suspect gastric/duodenal ulcer versus other Anxiety History of tobacco and marijuana use Plan: Patient will be admitted for further evaluation and treatment. Will keep the patient NPO. Will start IV Rocephin and IV Protonix b.i.d.. Will provide medication for nausea, vomiting and abdominal pain. Will check urine drug screen. Blood cultures obtained. Will consult GI to further evaluate. Patient will likely require EGD in the morning to further assess. Will need to rule out ulcer versus GERD. Patient with some anxiety. Will provide medication. Patient with history of tobacco and marijuana use. Will check urine drug screen. Will provide nicotine patch. Will continue to monitor closely. Continue IV fluids. DVT prophylaxis in place. Anticipate improvement over the next 24 hr. Discharge Plan: Home Plan to discharge in: 24 Hours - Advance Directives Does patient have a Living Will: No Does patient have a Durable POA for Healthcare: No - Code Status/Comfort Care Code Status Assessed: Yes (Patient is full code) Time Spent Managing Pts Care (In Minutes): 55
[2019-10-21] MEDS ORDERED: ACETAMINOPHEN 500 MG TAB PO PRN (19:53)
[2019-10-21] MEDS ORDERED: LORazepam 2 MG/ML VIAL IV PRN (19:53)
[2019-10-21] MEDS ORDERED: ONDANSETRON 4 MG/2 ML VIAL IV PRN (19:53)
[2019-10-21] MEDS ORDERED: CEFTRIAXONE 1 GM/NS 50 ML 1 GM/50 ML BAG IV SCH (19:53)
[2019-10-21] MEDS ORDERED: ACETAMINOPHEN 650MG/RECT SUPP RECT PRN (19:53)
[2019-10-21] MEDS ORDERED: MORPHINE 2 MG/ML SYR IV PRN (19:53)
[2019-10-21] MEDS ORDERED: SODIUM CHLORIDE 0.9% 10ML INJ IV PRN (19:53)
[2019-10-21] MEDS ORDERED: KCL 20 MEQ/100 mL IVPB 20 MEQ/100 ML BAG IV SCH (21:00)
[2019-10-21] MEDS: D5 0.9 NS 1,000 ML IV SCH (21:04)
[2019-10-21] MEDS: PANTOPRAZOLE 40 MG INJ IVP SCH ×2 (21:04→21:25)
[2019-10-21] MEDS: CEFTRIAXONE/SWI 1gm 1 GM/10 ML SYR IV SCH (21:26)
[2019-10-21 22:21] LABS: Barbiturates NEGATIVE (NEGATIVE); Benzodiazepines NEGATIVE (NEGATIVE); Cocaine NEGATIVE (NEGATIVE); METHAMPHETAM NEGATIVE (NEGATIVE); Methadone NEGATIVE (NEGATIVE); Opiates NEGATIVE (NEGATIVE); Phencyclidine NEGATIVE (NEGATIVE); THC Cannibis POSITIVE (NEGATIVE)
[2019-10-21 22:26] VITALS: BMI 48.4
[2019-10-22 04:17] LABS: Absolute Lymphocytes (CBC) 2.7 K/uL (0.7-4.9); Basophils % 0.8 % (0-1.3); Hematocrit 46.1 % (39.6-49.0); Lymphocytes % 19.8 % (15.3-44.8); MPV 9.7 fL (7.6-11.3); RBC Red Blood Cell Count 5.33 M/uL (4.33-5.43)
[2019-10-22 04:38] LABS: BUN Blood Urea Nitrogen 9 mg/dL (7-18); Bicarbonate 29 mmol/L (21-32); Glucose Level 101 mg/dL (74-106); Magnesium 2.1 mg/dL (1.8-2.4); Potassium 3.7 mmol/L (3.5-5.1); Sodium Level 141 mmol/L (136-145)
[2019-10-22] MEDS: D5 0.9 NS 1,000 ML IV SCH ×2 (05:05→08:29)
[2019-10-22] MEDS: PANTOPRAZOLE 40 MG INJ IVP SCH (08:30)
[2019-10-22] MEDS: CEFTRIAXONE/SWI 1gm 1 GM/10 ML SYR IV SCH (08:31)
[2019-10-22] MEDS ORDERED: KCL 20 MEQ/100 mL IVPB 20 MEQ/100 ML BAG IV SCH (09:00)
[2019-10-22] MEDS ORDERED: NICOTINE 21 MG/PAT TD SCH (09:00)
[2019-10-22] MEDS ORDERED: ENOXAPARIN 40 MG/0.4 ML SQ SCH (09:00)
[2019-10-22] MEDS ORDERED: CEFTRIAXONE/SWI 1gm 1 GM/10 ML SYR IV SCH (09:00)
[2019-10-22] MEDS ORDERED: LIDOCAINE 1% MPF 5 ML VIAL ONE (13:12)
[2019-10-22] MEDS ORDERED: propofoL 200 MG/20 ML VIAL IV ONE ×2 (13:12→13:34)
[2019-10-22 13:53] VITALS: BP 129/72; TEMP 96.2; O2SAT 99
--- NOTE | 2019-10-22 14:26 | OP ---
Surgeon: Lee Thomas MD Procedure Performed: Esophagogastroduodenoscopy. Performing Physician: Lee Thomas MD. Indications For Procedure: Epigastric pain, persistent nausea and vomiting. Plan For Anesthesia: Monitored anesthesia care. Complexity: Average. Technique: After obtaining informed consent from the patient, explaining risks and complications whi ch include, but are not limited to bleeding, infection, perforation, and anesthesia complication, pat ient was placed in left lateral position and sedation was given. Subsequently, the scope was advance d to the mouth and carefully guided up to the second portion of the duodenum. After the completion o f examination and diagnostic maneuvers, scope and equipment were withdrawn and procedure terminated i n a safe manner. Findings: Esophagus: No gross lesion seen in the upper and mid esophagus. In the distal esophagus LA grade A esophagitis was seen. Biopsies taken. The GE junction was at around 40 cm from the incis ors. Stomach: Mild patchy erythema seen in the body and antrum. Biopsies taken. Duodenum: The bulb and second portion appeared normal. Complications: None. Tolerance To Anesthesia: Excellent. Postoperative Diagnosis: Esophagitis, gastritis. Plan: 1.Await pathology results. 2.Oral PPI. 3.Avoidance of recreational drugs, especially like marijuana as this may be related given that his i maging and CAT scan and ultrasound did not point to a specific cause for his symptoms. Patient can f ollow up with us in the clinic. US/MODL Voice ID: [id number] Report ID: [id number]
--- NOTE | 2019-10-22 14:46 | P.DS ---
Admission Date: 10/22/19 Discharge Date: 10/22/19 Primary Care Provider: None Disposition: ROUTINE DISCHARGE Discharge Condition: GOOD Reason for Admission: Epigasatric pain, nausea Consultations: GI-Dr. Thomas Procedures: CT Scan: FINDINGS: The lung bases are clear. The liver demonstrates fatty liver. The spleen, pancreas, adrenal glands and kidneys are within normal limits. No bowel obstruction, free air, free fluid or abscess. The appendix is normal. No evidence of significant lymphadenopathy. No suspicious bony findings. IMPRESSION: No acute intra-abdominal or pelvic finding. ABUS: FINDINGS: The gallbladder demonstrates no gallstones. No pericholecystic fluid or gallbladder wall thickening. The common bile duct is normal measuring 3 mm. The liver demonstrates no findings of intrahepatic biliary dilatation. IMPRESSION: Unremarkable examination. EGD: Surgeon: Lee Thomas MD Procedure Performed: Esophagogastroduodenoscopy. Performing Physician: Lee Thomas MD. Indications For Procedure: Epigastric pain, persistent nausea and vomiting. Findings: Esophagus: No gross lesion seen in the upper and mid esophagus. In the distal esophagus LA grade A esophagitis was seen. Biopsies taken. The GE junction was at around 40 cm from the incisors. Stomach: Mild patchy erythema seen in the body and antrum. Biopsies taken. Duodenum: The bulb and second portion appeared normal. Complications: None. Postoperative Diagnosis: Esophagitis, gastritis. Medical Problem List: Epigastric abdominal pain with nausea and vomiting likely secondary to esophagitis and gastritis complicated with chronic marijuana use Anxiety History of tobacco and marijuana use Brief History of Present Illness: 23-year-old male presented to emergency room with epigastric abdominal pain with nausea and vomiting. This apparently started this past Sunday. He has not been able to eat over the last 2 days. He reports increased nausea, vomiting. He also reports some dizziness. Epigastric pain he rates around 7/10. It does not radiate. He mentions no history of recent nonsteroidal anti- inflammatory use. He denies any recent abnormal food taken. No sick contacts noted. In the ER patient was evaluated. White count 17.4. Pro calcitonin pending. CMP unremarkable. Abdominal ultrasound unremarkable. CT scan did not show any acute finding. Patient was given medication for nausea and vomiting as well as for pain. Patient admitted for further evaluation. When I saw the patient ER, he appeared stable. Pain was still present to the epigastric region. Patient portion or history of GERD or ulcers in the past. He does admit marijuana use and tobacco use. Hospital Course: Patient presented with epigastric pain, nausea and vomiting. Patient was admitted for further evaluation. CT scan and abdominal ultrasound unremarkable. White count slightly elevated. Patient was seen evaluated by GI. GI performed EGD showing esophagitis and gastritis. GI further recommended to continue PPI at discharge. GI also recommended to avoid recreational drugs especially marijuana which may cause symptoms. Patient plans to quit. Will provide Protonix 40 mg 1 pill daily. Patient may follow up with GI in 4-6 weeks. At discharge continue with a full liquid diet then advance to heart healthy. GERD education provided. Recommend follow up with GI to follow up pathology report. Vital Signs/Physical Exam: Temp Pulse Resp BP Pulse Ox 96.2 F L 72 16 129/72 98 10/22/19 13:51 10/22/19 13:51 10/22/19 13:51 10/22/19 13:51 10/22/19 12:00 General: Alert, In no apparent distress, Oriented x3, Cooperative HEENT: Atraumatic Neck: Supple Respiratory: Clear to auscultation bilaterally, Normal air movement Cardiovascular: Normal pulses, Regular rate/rhythm Gastrointestinal: Normal bowel sounds, Soft and benign, Non-distended, No masses, No rebound, No guarding, Tenderness (Pain to the epigastric improved) Neurological: Normal speech, Normal strength at 5/5 x4 extr, Normal tone, Normal affect Lymphatics: No axilla or inguinal lymphadenopathy Laboratory Data at Discharge: WBC 13.8 K/uL (4.3-10.9) H D 10/22/19 03:59 Hgb 15.5 g/dL (13.6-17.9) 10/22/19 03:59 Hct 46.1 % (39.6-49.0) 10/22/19 03:59 Plt Count 210 K/uL (152-406) 10/22/19 03:59 Sodium 141 mmol/L (136-145) 10/22/19 03:59 Potassium 3.7 mmol/L (3.5-5.1) 10/22/19 03:59 BUN 9 mg/dL (7-18) 10/22/19 03:59 Creatinine 0.89 mg/dL (0.55-1.3) 10/22/19 03:59 Glucose 101 mg/dL (74-106) 10/22/19 03:59 Magnesium 2.1 mg/dL (1.8-2.4) 10/22/19 03:59 Total Bilirubin 0.7 mg/dL (0.2-1.0) 10/21/19 15:45 AST 18 U/L (15-37) 10/21/19 15:45 ALT 43 U/L (12-78) 10/21/19 15:45 Alkaline Phosphatase 94 U/L (45-117) 10/21/19 15:45 Lipase 24 U/L (73-393) L 10/21/19 15:45 Home Medications: Gabapentin 1 tab PO DAILY PRN 10/21/19 Ondansetron HCl [Zofran] 4 mg PO TID PRN #5 tablet 10/22/19 Pantoprazole [Protonix Tab] 40 mg PO DAILY #30 tab 10/22/19 New Medications: Pantoprazole [Protonix Tab] 40 mg PO DAILY #30 tab Ondansetron HCl [Zofran] 4 mg PO TID PRN #5 tablet PRN Reason: Nausea / Vomiting Patient Discharge Instructions: Patient presented with epigastric pain, nausea and vomiting. Patient was admitted for further evaluation. CT scan and abdom inal ultrasound unremarkable. White count slightly elevated. Patient was seen evaluated by GI. GI performed EGD showing esophagitis and gastritis. GI further recommended to continue PPI at discharge. GI also recommended to avoid recreational drugs especially marijuana which may cause symptoms. Patient plans to quit. Will provide Protonix 40 mg 1 pill daily. Patient may follow up with GI in 4-6 weeks. At discharge continue with a full liquid diet then advance to heart healthy. GERD education provided. Recommend follow up with GI to follow up pathology report. Diet: Full liquid then soft then advance to heart healthy Activity: Ad gisselle Time spent managing pt's care (in minutes): 55
== END 2019-10-22 18:19 | disposition home or self-care (01) | DRG 392 ==
LOC: ER 14:09 → ERHOLD 18:11 → 2ND 19:52 → INTOOBSV 10-22 07:55 → OBSVTOIN 10-22 07:55
PROVIDERS: ADMIT Family Medicine; ATTEND Family Medicine
PROC: 0DB68ZX Excision of Stomach, Via Natural or Artificial Opening Endoscopic, Diagnostic (ICD-10-PCS; 2019-10-22)
PROC: 0DB28ZX Excision of Middle Esophagus, Via Natural or Artificial Opening Endoscopic, Diagnostic (ICD-10-PCS; principal; 2019-10-22 13:00)
DX: K20.9 Esophagitis, unspecified (principal); K29.70 Gastritis, unspecified, without bleeding; F17.210 Nicotine dependence, cigarettes, uncomplicated; K25.9 Gastric ulcer, unspecified as acute or chronic, without hemorrhage or perforation; K26.9 Duodenal ulcer, unspecified as acute or chronic, without hemorrhage or perforation; F41.9 Anxiety disorder, unspecified; Z20.828 Contact with and (suspected) exposure to other viral communicable diseases
CPT/HCPCS: 36415; 74177; 76705; 80048; 80076; 80307; 83690; 83735; 84145; 84439; 84443; 85025; 87040; 87205; 88305; 88312; 96361; 96374; 99285; C9113; G0378; J0696; J1650; J2405; J2704; J7030; J7042; Q9967; U0002

== ENCOUNTER 2021-01-12 20:59 | Emergency (ER) | payer SELFPAY ==
--- NOTE | 2021-01-12 23:23 | EDPHYS ---
Physician Documentation [facility] Name: Abdelrahman Chavez Age: 25 yrs Sex: Male : 1995 Arrival Date: 01/12/2021 Time: 21:02 Bed Waiting Private MD: ED Physician Jameson Georges HPI: 01/12 23:20 This 25 yrs old Male presents to ER via Ambulatory with complaints of jr8 Allergic Reaction, Rash. 23:20 This is a 25-year-old male patient that presented emergency room with complaints of jr8 rash to the arms abdomen and groin region along with his face. Stated that he was cutting down a tree that had poison valerie in it and was contacted by it. Rashes since increased. Complains of itching but denies any shortness of breath or wheezing.. Historical: - Allergies: 23:20 No Known Allergies; bb ROS: 23:20 Eyes: Negative for injury, pain, redness, and discharge, ENT: Negative for injury, jr8 pain, and discharge, Neck: Negative for injury, pain, and swelling, Cardiovascular: Negative for chest pain, palpitations, and edema, Respiratory: Negative for shortness of breath, cough, wheezing, and pleuritic chest pain, Abdomen/GI: Negative for abdominal pain, nausea, vomiting, diarrhea, and constipation, Back: Negative for injury and pain, MS/Extremity: Negative for injury and deformity, Neuro: Negative for headache, weakness, numbness, tingling, and seizure. 23:20 Skin: Positive for rash. Exam: 23:20 Constitutional: This is a well developed, well nourished patient who is awake, alert, jr8 and in no acute distress. Cardiovascular: Regular rate and rhythm with a normal S1 and S2. No gallops, murmurs, or rubs. Normal PMI, no JVD. No pulse deficits. Respiratory: Lungs have equal breath sounds bilaterally, clear to auscultation and percussion. No rales, rhonchi or wheezes noted. No increased work of breathing, no retractions or nasal flaring. MS/ Extremity: Pulses equal, no cyanosis. Neurovascular intact. Full, normal range of motion. Neuro: Awake and alert, GCS 15, oriented to person, place, time, and situation. Cranial nerves II-XII grossly intact. Motor strength 5/5 in all extremities. Sensory grossly intact. 23:20 Skin: Patient has papular and erythematic rash to the dorsal surfaces of his arms, face, abdomen, inguinal region. Rash consistent with poison valerie.. Vital Signs: 21:53 BP 143 / 80; Pulse 93; Resp 18; Temp 97.4; Pulse Ox 99% on R/A; Weight 140.61 kg; wg Height 5 ft. 9 in. (175.26 cm); Pain 3/10; 23:14 BP 132 / 69; Pulse 88; Resp 18; Temp 98.3(O); Pulse Ox 98% on R/A; oe 21:53 Body Mass Index 45.78 (140.61 kg, 175.26 cm) wg MDM: 23:22 Data reviewed: vital signs, nurses notes, and as a result, I will discharge patient. jr8 Data interpreted: Pulse oximetry: on room air is 98 %. Interpretation: normal. Counseling: I had a detailed discussion with the patient and/or guardian regarding: the historical points, exam findings, and any diagnostic results supporting the discharge/admit diagnosis, the need for outpatient follow up, a family practitioner, to return to the emergency department if symptoms worsen or persist or if there are any questions or concerns that arise at home. 23:23 Patient medically screened. jr8 Administered Medications: 23:24 Drug: predniSONE 60 mg Route: PO; bb 23:30 Follow up: Response: Medication administered at discharge. bb Disposition: 01/13 01:29 Co-signature as Attending Physician, Jameson Georges MD I agree with the assessment and rn plan of care. Attestation: The patient's history, exam findings, diagnostics, and a summary of any interventions or procedures was reviewed in detail with Spencer HINSON. Disposition Summary: 01/12/21 23:23 Discharge Ordered Location: Home jr8 Problem: new jr8 Symptoms: have improved jr8 Condition: Stable jr8 Diagnosis - Allergic contact dermatitis due to plants, except food jr8 Followup: jr8 - With: Private Physician - When: 2 - 3 days - Reason: Recheck today's complaints, Continuance of care, Re-evaluation by your physician Discharge Instructions: - Discharge Summary Sheet jr8 - Poison Valerie Dermatitis jr8 Forms: - Medication Reconciliation Form jr8 - Thank You Letter jr8 - Antibiotic Education jr8 - Prescription Opioid Use jr8 Prescriptions: - Prednisone 20 mg Oral Tablet - take 3 tablets by ORAL route once daily for 3 days then 2 tabletes daily for 3 jr8 days then 1 tablet daily for 3 days; 18 tablet; Refills: 0, Product Selection Permitted Signatures: Jo Pickens, LYLE RN Jameson Griffin MD MD rn Roszak, Josh, PA PA jr8
--- NOTE | 2021-01-12 23:23 | ER ---
Nurse's Notes [facility] Name: Abdelrahman Chavez Age: 25 yrs Sex: Male : 1995 Arrival Date: 01/12/2021 Time: 21:02 Bed Waiting Private MD: Diagnosis: Allergic contact dermatitis due to plants, except food Presentation: 01/12 21:53 Chief complaint: Patient states: Pt states he came in contact with poison umair this past wg Sunday. States he has come into contact with this multiple times in the past while doing yard work. Pt c/o of rash/welts to face, arms, chest, and groin. Pt states he last applied an anti-itch cream around 1900. Pt also states he took unknown dose of benedryl around 0500 today. Pt states symptoms aren't improving. Pt denies SOB, CP, N/V, dizziness or any other complaints. Coronavirus screen: Vaccine status: Patient reports being unvaccinated. Client denies travel out of the [place] in the last 14 days. Client reports previous positive COVID test result. Date of collection: March 2020. Ebola Screen: Patient negative for fever greater than or equal to 101.5 degrees Fahrenheit, and additional compatible Ebola Virus Disease symptoms Patient denies exposure to infectious person. Patient denies travel to an Ebola-affected area in the 21 days before illness onset. No symptoms or risks identified at this time. Onset: The symptoms/episode began/occurred gradually, 5 day(s) ago. Anaphylaxis evaluation, no signs or symptoms of anaphylaxis were noted. Initial Sepsis Screen: Does the patient meet any 2 criteria? No. Patient's initial sepsis screen is negative. Initial Sepsis Screen: Does the patient have a suspected source of infection? No. Patient's initial sepsis screen is negative. Risk Assessment: Do you want to hurt yourself or someone else? Patient reports no desire to harm self or others. Onset of symptoms was January 08, 2021. Care prior to arrival: Medication(s) given: anti-itch and benedryl. 21:53 Method Of Arrival: Ambulatory wg 21:53 Acuity: NEAL 4 wg Triage Assessment: 21:59 General: Appears uncomfortable, obese, well groomed, well developed, well nourished, wg Behavior is calm, cooperative, appropriate for age. Pain: Complains of pain in abdomen Quality of pain is described as itching/slight burning Pain began Started sat/sun. EENT: No deficits noted. Neuro: No deficits noted. Cardiovascular: No deficits noted. Respiratory: No deficits noted. GI: No deficits noted. : No deficits noted. Derm: Rash noted that is itchy, red, raised. Derm: Reports burning, itching, pain. Musculoskeletal: No deficits noted. Historical: - Allergies: 23:20 No Known Allergies; bb Screenin:20 Abuse screen: Denies threats or abuse. Nutritional screening: No deficits noted. bb Tuberculosis screening: No symptoms or risk factors identified. Fall Risk None identified. Assessment: 23:19 General: Appears in no apparent distress. uncomfortable, Behavior is calm, cooperative. bb Neuro: Level of Consciousness is awake, alert, obeys commands, Oriented to person, place, time, situation. Cardiovascular: No deficits noted. Respiratory: Airway is patent Respiratory effort is even, unlabored, Breath sounds are clear bilaterally. Derm: Rash noted that is from poison umair and is all over. Vital Signs: 21:53 BP 143 / 80; Pulse 93; Resp 18; Temp 97.4; Pulse Ox 99% on R/A; Weight 140.61 kg; wg Height 5 ft. 9 in. (175.26 cm); Pain 3/10; 23:14 BP 132 / 69; Pulse 88; Resp 18; Temp 98.3(O); Pulse Ox 98% on R/A; oe 21:53 Body Mass Index 45.78 (140.61 kg, 175.26 cm) wg ED Course: 21:02 Patient arrived in ED. bp1 21:59 Triage completed. wg 21:59 Arm band placed on left wrist. wg 23:20 Spencer Jones PA is PHCP. jr8 23:20 Jameson Georges MD is Attending Physician. jr8 23:20 Patient has correct armband on for positive identification. bb 23:20 No provider procedures requiring assistance completed. Patient did not have IV access bb during this emergency room visit. Administered Medications: 23:24 Drug: predniSONE 60 mg Route: PO; bb 23:30 Follow up: Response: Medication administered at discharge. bb Outcome: 23:23 Discharge ordered by . jr8 23:30 Discharged to home ambulatory. bb 23:30 Condition: stable 23:30 Discharge instructions given to patient, Instructed on discharge instructions, follow up and referral plans. medication usage, Demonstrated understanding of instructions, follow-up care, medications, Prescriptions given X 1. 23:31 Patient left the ED. bb Signatures: Jo Pickens, RN RN Spencer Mckinley PA PA jr[address] Brittany bp1 Gamba, Liam, RN wg
[2021-01-12 23:44] VITALS: BP 132/69; TEMP 98.3; O2SAT 98
[2021-01-12] MEDS ORDERED: predniSONE 20 MG TAB ONE (23:50)
== END 2021-01-12 23:31 | disposition home or self-care (01) ==
LOC: ER 20:59
DX: L23.7 Allergic contact dermatitis due to plants, except food (principal)
CPT/HCPCS: 99283; J7512

== ENCOUNTER 2021-02-05 10:14 | Emergency (ER) | payer SELFPAY ==
--- NOTE | 2021-02-05 11:19 | RAD REPORT ---
EXAM DESCRIPTION: RAD - Chest Single View - 02/05/2021 11:09 am CLINICAL HISTORY: SOB;Cough COMPARISON: Abdomen Pelvis W Contrast dated 10/21/2019 FINDINGS: Lines: None. Lungs: Diffuse prominence of the pulmonary interstitium. Pleural: No significant pleural effusions or pneumothorax. Cardiac: The heart size is within normal limits. Bones: No acute fractures. Other: IMPRESSION: Diffuse prominence of the pulmonary interstitium may reflect mild edema, or less likely, mild pneumonia. No consolidative airspace disease.
--- NOTE | 2021-02-05 12:47 | EDPHYS ---
Physician Documentation [facility] Name: Abdelrahman Chavez Age: 25 yrs Sex: Male : 1995 Arrival Date: 02/05/2021 Time: 10:16 Bed 15 Private MD: ED Physician Nila Montaño HPI: 02/05 10:39 This 25 yrs old Male presents to ER via Ambulatory with complaints of pm1 Shortness Of Breath. 10:39 The patient has shortness of breath at rest. Onset: The symptoms/episode began/occurred pm1 3 day(s) ago. The patient's shortness of breath is aggravated by light activity. Associated signs and symptoms: Pertinent positives: Sore throat, cough, Pertinent negatives: chest pain, fever. The patient has not experienced similar symptoms in the past. The patient has not recently seen a physician. Patient took home Covid tests today, negative results. Historical: - Allergies: 10:22 No Known Allergies; hb - PMHx: 10:22 Anxiety; Depression; hb - Immunization history:: Adult Immunizations up to date, Client reports receiving the 2nd dose of the Covid vaccine. - Social history:: Smoking status: Patient denies any tobacco usage or history of. ROS: 10:39 Eyes: Negative for injury, pain, redness, and discharge. pm1 10:39 Neck: Negative for injury, pain, and swelling, Cardiovascular: Negative for chest pain, palpitations, and edema. 10:39 Abdomen/GI: Negative for abdominal pain, nausea, vomiting, diarrhea, and constipation, Back: Negative for injury and pain, MS/Extremity: Negative for injury and deformity, Skin: Negative for injury, rash, and discoloration, Neuro: Negative for headache, weakness, numbness, tingling, and seizure. 10:39 Constitutional: Positive for body aches, Negative for poor PO intake. 10:39 ENT: Positive for sore throat, Negative for ear pain. 10:39 Respiratory: Positive for cough, shortness of breath, Negative for wheezing. 10:39 All other systems are negative. Exam: 10:39 Constitutional: This is a well developed, well nourished patient who is awake, alert, pm1 and in no acute distress. Head/Face: Normocephalic, atraumatic. 10:39 Back: No spinal tenderness. No costovertebral tenderness. Full range of motion. Skin: Warm, dry with normal turgor. Normal color with no rashes, no lesions, and no evidence of cellulitis. MS/ Extremity: Pulses equal, no cyanosis. Neurovascular intact. Full, normal range of motion. 10:39 Cardiovascular: Exam negative for acute changes, Rate: normal, Rhythm: regular, Pulses: no pulse deficits are appreciated, Edema: is not appreciated. 10:39 Respiratory: Exam negative for acute changes, respiratory distress, shortness of breath, Breath sounds: are clear throughout. 10:39 Abdomen/GI: Exam negative for acute changes, Inspection: obese Palpation: abdomen is soft and non-tender, in all quadrants. 10:39 Neuro: Exam negative for acute changes, Orientation: is normal, Mentation: is normal, Motor: is normal, moves all fours. Vital Signs: 10:20 BP 166 / 81; Pulse 103; Resp 20; Temp 98.5; Pulse Ox 100% on R/A; Weight 158.76 kg; hb Height 5 ft. 9 in. (175.26 cm); Pain 3/10; 11:18 BP 135 / 85; Pulse 105; Resp 22; Pulse Ox 97% ; oh 10:20 Body Mass Index 51.69 (158.76 kg, 175.26 cm) hb MDM: 10:40 Patient medically screened. pm1 12:45 Data reviewed: vital signs. Data interpreted: Pulse oximetry: on room air is 97 %. pm1 Interpretation: normal. Counseling: I had a detailed discussion with the patient and/or guardian regarding: the historical points, exam findings, and any diagnostic results supporting the discharge/admit diagnosis, lab results, radiology results, the need for outpatient follow up, to return to the emergency department if symptoms worsen or persist or if there are any questions or concerns that arise at home. 02/05 10:33 Order name: Flu pm1 02/05 10:33 Order name: Strep; Complete Time: 11:41 pm1 02/05 10:33 Order name: Influenza Screen (A ; Complete Time: 11:41 EDMS 02/05 11:41 Order name: Throat Culture EDMS 02/05 12:22 Order name: SARS-COV-2 RT PCR; Complete Time: 12:45 EDMS 02/05 10:33 Order name: CXR XRAY; Complete Time: 11:37 pm1 02/05 10:33 Order name: Droplet/Contact Precautions; Complete Time: 11:03 pm1 02/05 10:33 Order name: Labs collected and sent; Complete Time: 11:03 pm1 02/05 10:33 Order name: O2 Per Protocol; Complete Time: 11:03 pm1 Administered Medications: No medications were administered Disposition Summary: 02/05/21 12:47 Discharge Ordered Location: Home pm1 Problem: new pm1 Symptoms: have improved pm1 Condition: Stable pm1 Diagnosis - Influenza B pm1 Followup: pm1 - With: Emergency Department - When: As needed - Reason: Worsening of condition Followup: pm1 - With: Private Physician - When: 2 - 3 days - Reason: Recheck today's complaints, Continuance of care, Re-evaluation by your physician Discharge Instructions: - Discharge Summary Sheet pm1 - Influenza, Adult pm1 Forms: - Medication Reconciliation Form pm1 - Thank You Letter pm1 - Antibiotic Education pm1 - Prescription Opioid Use pm1 Signatures: Dispatcher [employer] EDHarry Benton, CYCLE DIRECTOR CYCLE DIRECTOR pm1 Anita Cook, RN RN hb Corrections: (The following items were deleted from the chart) 11:12 10:34 CORONAVIRUS+MR.LAB.BRZ ordered. [facility]
--- NOTE | 2021-02-05 12:47 | ER ---
Nurse's Notes [facility] Name: Abdelrahman Chavez Age: 25 yrs Sex: Male : 1995 Arrival Date: 02/05/2021 Time: 10:16 Bed 15 Private MD: Diagnosis: Influenza B Presentation: 02/05 10:20 Chief complaint: Sore throat and sinus congestion x 1 week, chest congestion and SOB x hb 3 days. Home COVID test negative. Coronavirus screen: Client presents with at least one sign or symptom that may indicate coronavirus-19. Standard/surgical mask placed on the client. Provider contacted for isolation considerations. Ebola Screen: No symptoms or risks identified at this time. Initial Sepsis Screen: Does the patient meet any 2 criteria? No. Patient's initial sepsis screen is negative. Does the patient have a suspected source of infection? No. Patient's initial sepsis screen is negative. Risk Assessment: Do you want to hurt yourself or someone else? Patient reports no desire to harm self or others. Onset of symptoms was January 23, 2021. 10:20 Method Of Arrival: Ambulatory hb 10:20 Acuity: NEAL 3 hb Triage Assessment: 11:14 Respiratory: the patient has mild shortness of breath. oh 11:19 Pain: Denies pain. oh 11:19 Respiratory: Onset: The symptoms/episode began/occurred yesterday. oh Historical: - Allergies: 10:22 No Known Allergies; hb - PMHx: 10:22 Anxiety; Depression; hb - Immunization history:: Adult Immunizations up to date, Client reports receiving the 2nd dose of the Covid vaccine. - Social history:: Smoking status: Patient denies any tobacco usage or history of. Screenin:12 Abuse screen: Denies threats or abuse. Nutritional screening: No deficits noted. oh Tuberculosis screening: No symptoms or risk factors identified. Fall Risk None identified. Assessment: 11:11 General: Appears comfortable, Behavior is calm, cooperative, appropriate for age, oh Reports SOB, minimal cough, hx of seasonal allergies, asthma. Respiratory: Reports shortness of breath on exertion. 11:13 Respiratory: Airway is patent. oh 11:14 Respiratory: Respiratory effort is unlabored. oh 11:18 Cardiovascular: Rhythm is sinus tachycardia. oh Vital Signs: 10:20 BP 166 / 81; Pulse 103; Resp 20; Temp 98.5; Pulse Ox 100% on R/A; Weight 158.76 kg; hb Height 5 ft. 9 in. (175.26 cm); Pain 3/10; 11:18 BP 135 / 85; Pulse 105; Resp 22; Pulse Ox 97% ; oh 10:20 Body Mass Index 51.69 (158.76 kg, 175.26 cm) hb ED Course: 10:16 Patient arrived in ED. mr 10:22 Triage completed. hb 10:22 Arm band placed on. hb 10:23 Harry Richard, VIDHI is PHCP. pm1 10:23 Nila Montaño MD is Attending Physician. pm1 10:24 Denis Green, RN is Primary Nurse. oh 11:03 Flu Sent. oh 11:03 Strep Sent. oh 11:09 CXR XRAY In Process Unspecified. EDMS 11:12 Bed in low position. Call light in reach. oh Administered Medications: No medications were administered Outcome: 12:47 Discharge ordered by MD. pm1 13:32 Discharged to home ambulatory. oh 13:32 Condition: stable 13:32 Patient left the ED. oh Signatures: Dispatcher [employer] EDMS Eugenia Harry DiannaduaneHarry, LINSEED CAKE TRIMMER LINSEED CAKE TRIMMER pm1 Anita Cook, RN RN Denis Green, LYLE RN oh Corrections: (The following items were deleted from the chart) 11:12 11:03 CORONAVIRUS+ drawn and sent. oh EDMS
== END 2021-02-05 13:32 | disposition home or self-care (01) ==
LOC: ER 10:14
DX: J10.1 Influenza due to other identified influenza virus with other respiratory manifestations (principal); Z20.822 Contact with and (suspected) exposure to COVID-19
CPT/HCPCS: 71045; 87070; 87081; 87804; 99284; U0003

== ENCOUNTER 2021-04-22 22:32 | Emergency (ER) | payer SELFPAY ==
[2021-04-22] MEDS ORDERED: IBUPROFEN 400 MG TAB ONE (23:56)
--- NOTE | 2021-04-23 03:20 | EDPHYS ---
Physician Documentation [facility] Name: Abdelrahman Chavez Age: 25 yrs Sex: Male : 1995 Arrival Date: 04/22/2021 Time: 22:35 Bed 12 Private MD: ED Physician Dejuan Billy HPI: 04/22 23:40 This 25 yrs old Male presents to ER via Ambulatory with complaints of Private problem. cp 23:40 Onset: The symptoms/episode began/occurred 2 day(s) ago. Associated signs and symptoms: cp Pertinent negatives: abdominal pain, constipation, diarrhea, fever, vomiting. Patient c/o pain and swelling to testicular/perineum area times 2 days. Historical: - Allergies: 23:22 No Known Allergies; bb - Home Meds: 23:22 None [Active]; bb - PMHx: 23:22 Asthma; Anxiety; Depression; bb - PSHx: 23:22 None; bb - Immunization history:: Adult Immunizations up to date, Client reports having NOT received the Covid vaccine. - Social history:: Smoking status: Patient reports the use of cigarette tobacco products, denies chronic smoking, but will smoke occasionally, Patient uses alcohol, occasionally. Patient/guardian denies using street drugs. ROS: 23:45 Constitutional: Negative for body aches, chills, fever, poor PO intake. cp 23:45 Cardiovascular: Negative for chest pain, palpitations. cp 23:45 Respiratory: Negative for cough, shortness of breath, wheezing. 23:45 Abdomen/GI: Negative for abdominal pain, nausea, vomiting, and diarrhea. 23:45 : Negative for urinary symptoms. 23:45 Skin: Positive for swelling, of the testicular and perineum area. 23:45 All other systems are negative. Exam: 23:50 Constitutional: The patient appears in no acute distress, alert, awake, non-toxic, well cp developed, well nourished, obese. 23:50 Head/Face: Normocephalic, atraumatic. cp 23:50 Cardiovascular: Rate: normal. 23:50 Respiratory: the patient does not display signs of respiratory distress, Respirations: normal, no use of accessory muscles, no retractions, labored breathing, is not present. 23:50 Abdomen/GI: Inspection: obese Palpation: abdomen is soft and non-tender, in all quadrants. 23:50 Skin: mild swelling noted to perineum, tender to touch, no abscess or drainage from area. Vital Signs: 23:19 BP 134 / 109; Pulse 94; Resp 16 S; Temp 98.3(O); Pulse Ox 98% on R/A; Weight 158.76 kg bb (R); Height 5 ft. 8 in. (172.72 cm) (R); Pain 6/10; 04/23 03:49 BP 113 / 67; Pulse 86; Resp 16 S; Temp 97.7(TE); Pulse Ox 96% on R/A; bb 04/22 23:19 Body Mass Index 53.22 (158.76 kg, 172.72 cm) bb MDM: 04/22 23:38 Patient medically screened. cp 04/23 00:00 Differential diagnosis: abscess, cellulitis. cp 03:18 Data reviewed: vital signs, nurses notes, radiologic studies, ultrasound. cp 03:18 Counseling: I had a detailed discussion with the patient and/or guardian regarding: the cp historical points, exam findings, and any diagnostic results supporting the discharge/admit diagnosis, radiology results, to return to the emergency department if symptoms worsen or persist or if there are any questions or concerns that arise at home. ED course: VSS. Will discharge to home with RX for oral antibiotic. Patient instructed to return to ED worsening pain, swelling. 04/22 23:43 Order name: US Scrotum Testicles cp Administered Medications: 04/22 23:55 Drug: Ibuprofen 800 mg Route: PO; lp1 04/23 03:50 Follow up: Response: No adverse reaction 03:18 CANCELLED (Physician Discretion): Clindamycin 900 mg IM once cp Disposition: 03:25 Chart complete. cp 21:24 Co-signature as Attending Physician, Dejuan Billy MD. mh7 Disposition Summary: 04/23/21 03:19 Discharge Ordered Location: Home cp Problem: new cp Symptoms: are unchanged cp Condition: Stable cp Diagnosis - Cellulitis of perineum cp Followup: cp - With: Private Physician - When: 2 - 3 days - Reason: Worsening of condition Discharge Instructions: - Discharge Summary Sheet cp - Cellulitis, Adult cp Forms: - Medication Reconciliation Form cp - Thank You Letter cp - Antibiotic Education cp - Prescription Opioid Use cp Prescriptions: - Clindamycin HCl 300 mg Oral Capsule - take 1 capsule by ORAL route every 6 hours for 10 days; 40 capsule; Refills: 0, cp Product Selection Permitted - Naprosyn 500 mg Oral Tablet - take 1 tablet by ORAL route 2 times per day take with food; 20 tablet; Refills: cp 0, Product Selection Permitted Signatures: Dispatcher [employer] Jo Mccullough RN RN bb Leah Friend RN RN lp1 Carlos A Olsen PA PA cp Holmes, Maurice, MD MD mh7 Corrections: (The following items were deleted from the chart) 03:18 03:16 Clindamycin 900 mg IM once ordered. cp cp
--- NOTE | 2021-04-23 03:20 | ER ---
Nurse's Notes [facility] Name: Abdelrahman Chavez Age: 25 yrs Sex: Male : 1995 Arrival Date: 04/22/2021 Time: 22:35 Bed 12 Private MD: Diagnosis: Cellulitis of perineum Presentation: 04/22 23:19 Chief complaint: Patient states: he has a lump somewhere in his testicular area which bb he noticed yesterday it is hard and reddened and painful when he sits. Coronavirus screen: At this time, the client does not indicate any symptoms associated with coronavirus-19. Ebola Screen: No symptoms or risks identified at this time. Initial Sepsis Screen: Does the patient meet any 2 criteria? No. Patient's initial sepsis screen is negative. Does the patient have a suspected source of infection? No. Patient's initial sepsis screen is negative. Risk Assessment: Do you want to hurt yourself or someone else? Patient reports no desire to harm self or others. Onset of symptoms was April 21, 2021. 23:19 Method Of Arrival: Ambulatory bb 23:19 Acuity: NEAL 4 bb Triage Assessment: 23:22 General: Appears in no apparent distress. Behavior is calm, cooperative. Pain: bb Complains of pain in scrotal area. Neuro: Level of Consciousness is awake, alert, obeys commands, Oriented to person, place, time, situation. Cardiovascular: Capillary refill < 3 seconds Patient's skin is warm and dry. Respiratory: Respiratory effort is even, unlabored, Respiratory pattern is regular. GI: No signs and/or symptoms were reported involving the gastrointestinal system. Derm: Skin is pink, warm \T\ dry. Reports reddened lump in scrotal area. Musculoskeletal: Circulation, motion, and sensation intact. Historical: - Allergies: 23:22 No Known Allergies; bb - Home Meds: 23:22 None [Active]; bb - PMHx: 23:22 Asthma; Anxiety; Depression; bb - PSHx: 23:22 None; bb - Immunization history:: Adult Immunizations up to date, Client reports having NOT received the Covid vaccine. - Social history:: Smoking status: Patient reports the use of cigarette tobacco products, denies chronic smoking, but will smoke occasionally, Patient uses alcohol, occasionally. Patient/guardian denies using street drugs. Screenin/18 03:49 Abuse screen: Denies threats or abuse. Nutritional screening: No deficits noted. bb Tuberculosis screening: No symptoms or risk factors identified. Fall Risk None identified. Assessment: 03:48 Reassessment: No changes from previously documented assessment. Patient is alert, bb oriented x 3, equal unlabored respirations, skin warm/dry/pink. pt verbalized understanding of and agrees to plan of care discharge instructions given pt ambulated with steady gait to exit. Vital Signs: 04/22 23:19 BP 134 / 109; Pulse 94; Resp 16 S; Temp 98.3(O); Pulse Ox 98% on R/A; Weight 158.76 kg bb (R); Height 5 ft. 8 in. (172.72 cm) (R); Pain 6/10; 04/23 03:49 BP 113 / 67; Pulse 86; Resp 16 S; Temp 97.7(TE); Pulse Ox 96% on R/A; bb 04/22 23:19 Body Mass Index 53.22 (158.76 kg, 172.72 cm) bb ED Course: 04/22 22:35 Patient arrived in ED. es 23:22 Triage completed. bb 23:22 Arm band placed on Patient placed in an exam room. bb 23:34 Carlos A Olsen PA is PHCP. cp 23:34 Dejuan Billy MD is Attending Physician. cp 04/23 00:24 Leah Friend, RN is Primary Nurse. lp1 00:33 US Scrotum Testicles In Process Unspecified. EDMS 03:49 Patient has correct armband on for positive identification. bb 03:49 No provider procedures requiring assistance completed. Patient did not have IV access bb during this emergency room visit. Administered Medications: 04/22 23:55 Drug: Ibuprofen 800 mg Route: PO; lp1 04/23 03:50 Follow up: Response: No adverse reaction bb 03:18 CANCELLED (Physician Discretion): Clindamycin 900 mg IM once cp Outcome: 03:19 Discharge ordered by . cp 03:49 Discharged to home ambulatory. bb 03:49 Condition: stable 03:49 Discharge instructions given to patient, Instructed on discharge instructions, follow up and referral plans. medication usage, Demonstrated understanding of instructions, follow-up care, medications, Prescriptions given X 2. 03:50 Patient left the ED. bb Signatures: Dispatcher [employer] Inessa Elliott Brenda RN RN bb Leah Friend RN RN lp1 Carlos A Olsen PA PA cp
[2021-04-23 03:58] VITALS: BP 113/67; TEMP 97.7; O2SAT 96
--- NOTE | 2021-04-24 15:31 | RAD REPORT ---
EXAM DESCRIPTION: Scrotum Testicles CLINICAL HISTORY: 25 years Male, Swelling;Pain COMPARISON: None. TECHNIQUE: Real-time sonographic images of the scrotal contents obtained using a linear multi hertz transducer. Color and spectral Doppler imaging was also obtained. FINDINGS: Testicles: The right testicle measures 2.9 x 3.3 x 2.4 cm. The left testicle measures 3.4 x 2.3 x 2.7 cm. No solid intratesticular mass identified. Homogenous echogenicity of the testicles. Epididymis: Small cystic structure adjacent right testicle likely represents a small epididymal cyst. Hydrocele: No hydrocele. Blood flow: Normal arterial and venous blood flow identified bilaterally. Other: Scrotal skin thickening. Cystic-like structures in the scrotal soft tissues. Possible right va ricocele. IMPRESSION: 1. Blood flow identified in the testicles bilaterally. 2. Possible right varicocele. 3. Scrotal skin thickening with small hypoechoic areas possibly representing edema. This may be on th e basis of hydrostatic edema or cellulitis. Electronically signed by: Chalino Mahajan 04/23/2021 2:52 AM COBBLER APPRENTICE Due to temporary technical issues with the PACS/Fluency reporting system, reports are being signed by the in house radiologists without review as a courtesy to insure prompt reporting. The interpreting radiologist is fully responsible for the content of the report.
== END 2021-04-23 03:50 | disposition home or self-care (01) ==
LOC: ER 22:32
DX: L03.315 Cellulitis of perineum (principal); F17.210 Nicotine dependence, cigarettes, uncomplicated
CPT/HCPCS: 76870; 99283

== ENCOUNTER 2021-04-24 23:57 | Emergency (ER) | payer SELFPAY ==
[2021-04-25] MEDS ORDERED: MORPHINE 4 MG/ML SYR ONE (00:30)
[2021-04-25] MEDS ORDERED: ONDANSETRON 4 MG/2 ML VIAL ONE (00:31)
[2021-04-25] MEDS ORDERED: NA CHLORIDE 0.9% 1,000 ML ONE (00:41)
[2021-04-25 01:55] LABS: Protime INR 1.07
[2021-04-25 01:56] LABS: Absolute Lymphocytes (CBC) 2.1 K/uL (0.7-4.9); Basophils % 0.8 % (0-1.3); Hematocrit 47.8 % (39.6-49.0); Lymphocytes % 14.8 % (15.3-44.8); MPV 9.5 fL (7.6-11.3); RBC Red Blood Cell Count 5.54 M/uL (4.33-5.43)
[2021-04-25 02:08] LABS: ALT/SGPT 39 U/L (12-78); AST/SGOT 14 U/L (15-37); Albumin 2.2 g/dL (3.4-5.0); Alkaline Phosphatase 58 U/L (45-117); BUN Blood Urea Nitrogen 9 mg/dL (7-18); Bicarbonate 16 mmol/L (21-32); Bilirubin Direct < 0.1 mg/dL (0-0.2); Bilirubin Total 0.3 mg/dL (0.2-1.0); Glucose Level 99 mg/dL (74-106); Potassium 3.1 mmol/L (3.5-5.1); Protein, Total 5.9 g/dL (6.4-8.2); Sodium Level 143 mmol/L (136-145)
[2021-04-25 03:52] LABS: Urine Blood Negative (Negative); Urine Glucose Negative (Negative); Urine Protein Trace (Negative); Urine Specific Gravity 1.025 (1.005-1.030); Urine pH 5.5 (5.0-7.0)
[2021-04-25] MEDS ORDERED: VANCOMYCIN 1 GM/VIAL ONE (05:14)
[2021-04-25] MEDS ORDERED: PIPERACIL/TAZO 3.375 GM VIAL IV ONE (05:15)
[2021-04-25] MEDS ORDERED: NA CHLORIDE 0.9% 250 ML ONE (05:15)
[2021-04-25] MEDS ORDERED: NA CHLORIDE 0.9% 100 ML ONE (05:15)
--- NOTE | 2021-04-25 06:00 | ER ---
Nurse's Notes [facility] Name: Abdelrahman Chavez Age: 25 yrs Sex: Male : 1995 Arrival Date: 04/25/2021 Time: 00:00 Bed 6 Private MD: Diagnosis: Pelvic and perineal pain Presentation: 04/25 00:14 Chief complaint: Patient states: there is a mass/bump to his r groin, pt was seen for as6 same issue Sunday but feels like it is getting bigger and pain is increasing. Coronavirus screen: At this time, the client does not indicate any symptoms associated with coronavirus-19. Ebola Screen: No symptoms or risks identified at this time. Initial Sepsis Screen: Does the patient meet any 2 criteria? No. Patient's initial sepsis screen is negative. Does the patient have a suspected source of infection? No. Patient's initial sepsis screen is negative. Risk Assessment: Do you want to hurt yourself or someone else? Patient reports no desire to harm self or others. Onset of symptoms is unknown. 00:14 Method Of Arrival: Ambulatory as6 00:14 Acuity: NEAL 3 as6 Triage Assessment: 06:21 General: Appears in no apparent distress. Behavior is calm, cooperative. as6 Historical: - Allergies: 00:18 No Known Allergies; as6 - Home Meds: 00:18 None [Active]; as6 - PMHx: 00:18 Anxiety; Asthma; Depression; as6 - PSHx: 00:18 None; as6 - Immunization history:: Adult Immunizations not up to date, Client reports having NOT received the Covid vaccine. - Social history:: Smoking status: Patient denies any tobacco usage or history of. Screenin:19 Abuse screen: Denies threats or abuse. Nutritional screening: No deficits noted. as6 Tuberculosis screening: No symptoms or risk factors identified. Fall Risk None identified. Assessment: 00:35 General: Reports " I was in pain and in the house by myself. I was scared that I as6 couldn't really wall. I did take gabapentin that I have for my back. I am still sweating from the pain.". General: Reports " There is a mass and it feels like it is getting bigger, it is growing.". Pain: Complains of pain in perineum and anus Pain currently is 10 out of 10 on a pain scale. Quality of pain is described as stabbing. Neuro: Level of Consciousness is awake, alert, obeys commands, Oriented to person, place, time, situation. Respiratory: Airway is patent Trachea midline Respiratory effort is even, unlabored. 04:52 Reassessment: Patient appears in no apparent distress at this time. Patient and/or as6 family updated on plan of care and expected duration. Pain level reassessed. Patient is alert, oriented x 3, equal unlabored respirations, skin warm/dry/pink. 06:19 Reassessment: Patient appears in no apparent distress at this time. family at bedside, as6 no complaints or concerns at this time. 10:21 Reassessment: pt being transferred reporting given to Jillian ALVARENGA at [facility]. Vital Signs: 00:14 BP 145 / 96; Pulse 111; Resp 18 S; Temp 97.9(O); Pulse Ox 100% on R/A; Weight 158.76 kg as6 (R); Height 5 ft. 9 in. (175.26 cm) (R); Pain 10/10; 00:35 BP 134 / 50; Pulse 89; Resp 18; Pulse Ox 100% on R/A; Pain 10/10; as6 01:44 BP 142 / 92; Pulse 92; Resp 18 S; Pulse Ox 98% on R/A; as6 03:04 BP 137 / 74; Pulse 84; Resp 18 S; Pulse Ox 100% on R/A; as6 04:51 BP 136 / 77; Pulse 84; Resp 17; Pulse Ox 97% on R/A; sm5 06:19 BP 126 / 60; Pulse 79; Resp 18 S; Pulse Ox 97% on R/A; as6 07:26 BP 119 / 68; Pulse 103; Resp 18; Pulse Ox 94% on R/A; murphy 08:29 BP 114 / 66; Pulse 92; Resp 18; Pulse Ox 98% on R/A; murphy 00:14 Body Mass Index 51.69 (158.76 kg, 175.26 cm) as6 ED Course: 00:00 Patient arrived in ED. ja2 00:05 Rashid Osullivan RN is Primary Nurse. as6 00:11 Dejuan Billy MD is Attending Physician. mh7 00:18 Triage completed. as6 00:19 Arm band placed on. as6 00:19 Placed in gown. Bed in low position. Call light in reach. Pulse ox on. NIBP on. as6 00:35 Door closed. Noise minimized. Moved to private room. Warm blanket given. Verbal as6 reassurance given. 00:35 Initial lab(s) drawn, by me, sent to lab. Inserted saline lock: 20 gauge in right as6 antecubital area, using aseptic technique. Blood collected. 01:58 US Scrotum Testicles In Process Unspecified. EDMS 02:46 CT Pelvis w cont In Process Unspecified. EDMS 05:09 Initiated transfer at [facility] with Marilu Ramirez. Requested we call back with covid tt3 results once they return. 05:28 First set of blood cultures drawn by me. tw5 05:44 COVID-19 SARS RT PCR (Document "Date of Onset" if Symptomatic) Sent. as6 05:45 Inserted saline lock: 18 gauge in right antecubital area, using aseptic technique. tw5 Blood collected. 06:14 Marilu Ramirez with [facility] called back with their urologist to speak with Dr. Billy tt3 regarding the transfer request. Covid result still pending at this time. 06:32 Updated Marilu Ramirez at [facility] with pt covid result. Stated she would check and tt3 see if they had a covid bed available and call back. 09:09 XRAY Chest (1 view) In Process Unspecified. EDMS 10:19 No provider procedures requiring assistance completed. Inserted Accessed. Patient murphy transferred, IV remains in place. Administered Medications: 00:51 Drug: NS 0.9% 1000 ml Route: IV; Rate: 1000 ml; Site: left antecubital; as6 07:27 Follow up: IV Status: Completed infusion murphy 00:52 Drug: morphine 4 mg Route: IVP; Site: left antecubital; as6 01:13 Follow up: Response: No adverse reaction; RASS: Alert and Calm (0) as6 00:52 Drug: Zofran (Ondansetron) 4 mg Route: IVP; Site: left antecubital; as6 01:13 Follow up: Response: No adverse reaction as6 05:37 Drug: Zosyn (piperacillin-tazobactam) 3.375 grams Route: IVPB; Infused Over: 60 mins; as6 Site: right antecubital; 06:18 Follow up: Response: No adverse reaction; IV Status: Completed infusion; IV Intake: as6 100ml 06:10 Drug: vancoMYCIN 1 grams Route: IVPB; Infused Over: 2 hrs; Site: right antecubital; as6 Intake: 06:18 IV: 100ml; Total: 100ml. as6 Outcome: 05:59 ER care complete, transfer ordered by MD. ybarra 10:20 Transferred by ground EMS to [facility]. katherine 10:20 Condition: good 10:20 Instructed on the need for transfer. 10:23 ER care complete, transfer ordered by MD. murphy 10:23 Patient left the ED. murphy Signatures: Dispatcher [employer] EDDejuan Alamo MD MD mh7 Georges Lemus tt3 Poornima Alcantara Tiffany 5 Rashid Osullivan RN RN as6 Bev Chua RN RN sm5 Anita Mcnally
--- NOTE | 2021-04-25 06:00 | EDPHYS ---
Physician Documentation [facility] Name: Abdelrahman Chavez Age: 25 yrs Sex: Male : 1995 Arrival Date: 04/25/2021 Time: 00:00 Bed 6 Private MD: ED Physician Dejuan Billy HPI: 04/25 00:49 This 25 yrs old Male presents to ER via Ambulatory with complaints of Groin Pain. mh7 00:49 The patient presents with scrotal pain, of the right side. Onset: The symptoms/episode mh7 began/occurred 4 day(s) ago. Modifying factors: The symptoms are alleviated by nothing, the symptoms are aggravated by movement, pressure. Associated signs and symptoms: Pertinent negatives: abdominal pain, constipation, diarrhea, dysuria, fever, hematuria, nausea, vomiting. Severity of symptoms: At their worst the symptoms were moderate, 2 day(s) ago, in the emergency department the symptoms are unchanged, despite home interventions. The patient has been recently seen at the [facility] Emergency Department, this week. Historical: - Allergies: 00:18 No Known Allergies; as6 - Home Meds: 00:18 None [Active]; as6 - PMHx: 00:18 Anxiety; Asthma; Depression; as6 - PSHx: 00:18 None; as6 - Immunization history:: Adult Immunizations not up to date, Client reports having NOT received the Covid vaccine. - Social history:: Smoking status: Patient denies any tobacco usage or history of. ROS: 00:49 Constitutional: Negative for fever, chills, and weight loss, Eyes: Negative for injury, mh7 pain, redness, and discharge, ENT: Negative for injury, pain, and discharge, Neck: Negative for injury, pain, and swelling, Cardiovascular: Negative for chest pain, palpitations, and edema, Respiratory: Negative for shortness of breath, cough, wheezing, and pleuritic chest pain, Abdomen/GI: Negative for abdominal pain, nausea, vomiting, diarrhea, and constipation, Back: Negative for injury and pain, MS/Extremity: Negative for injury and deformity, Skin: Negative for injury, rash, and discoloration, Neuro: Negative for headache, weakness, numbness, tingling, and seizure, Psych: Negative for depression, anxiety, suicide ideation, homicidal ideation, and hallucinations, Allergy/Immunology: Negative for hives, rash, and allergies, Endocrine: Negative for neck swelling, polydipsia, polyuria, polyphagia, and marked weight changes, Hematologic/Lymphatic: Negative for swollen nodes, abnormal bleeding, and unusual bruising. Exam: 00:49 Head/Face: Normocephalic, atraumatic. Eyes: Pupils equal round and reactive to light, mh7 extra-ocular motions intact. Lids and lashes normal. Conjunctiva and sclera are non-icteric and not injected. Cornea within normal limits. Periorbital areas with no swelling, redness, or edema. Neck: Trachea midline, no thyromegaly or masses palpated, and no cervical lymphadenopathy. Supple, full range of motion without nuchal rigidity, or vertebral point tenderness. No Meningismus. Chest/axilla: Normal chest wall appearance and motion. Nontender with no deformity. No lesions are appreciated. Cardiovascular: Regular rate and rhythm with a normal S1 and S2. No gallops, murmurs, or rubs. Normal PMI, no JVD. No pulse deficits. Respiratory: Lungs have equal breath sounds bilaterally, clear to auscultation and percussion. No rales, rhonchi or wheezes noted. No increased work of breathing, no retractions or nasal flaring. Abdomen/GI: Soft, non-tender, with normal bowel sounds. No distension or tympany. No guarding or rebound. No evidence of tenderness throughout. Back: No spinal tenderness. No costovertebral tenderness. Full range of motion. MS/ Extremity: Pulses equal, no cyanosis. Neurovascular intact. Full, normal range of motion. Neuro: Awake and alert, GCS 15, oriented to person, place, time, and situation. Cranial nerves II-XII grossly intact. Motor strength 5/5 in all extremities. Sensory grossly intact. Cerebellar exam normal. Normal gait. Psych: Awake, alert, with orientation to person, place and time. Behavior, mood, and affect are within normal limits. 00:49 Constitutional: The patient appears in no acute distress, alert, awake, anxious, uncomfortable. 00:49 : CVA tenderness, is absent, Male external genitalia: Patient is not circumisioned. mh7 tenderness, of the right testicle is noted, that is moderate, Bladder: is normal. Vital Signs: 00:14 BP 145 / 96; Pulse 111; Resp 18 S; Temp 97.9(O); Pulse Ox 100% on R/A; Weight 158.76 kg as6 (R); Height 5 ft. 9 in. (175.26 cm) (R); Pain 10/10; 00:35 BP 134 / 50; Pulse 89; Resp 18; Pulse Ox 100% on R/A; Pain 10/10; as6 01:44 BP 142 / 92; Pulse 92; Resp 18 S; Pulse Ox 98% on R/A; as6 03:04 BP 137 / 74; Pulse 84; Resp 18 S; Pulse Ox 100% on R/A; as6 04:51 BP 136 / 77; Pulse 84; Resp 17; Pulse Ox 97% on R/A; sm5 06:19 BP 126 / 60; Pulse 79; Resp 18 S; Pulse Ox 97% on R/A; as6 07:26 BP 119 / 68; Pulse 103; Resp 18; Pulse Ox 94% on R/A; umrphy 08:29 BP 114 / 66; Pulse 92; Resp 18; Pulse Ox 98% on R/A; murphy 00:14 Body Mass Index 51.69 (158.76 kg, 175.26 cm) as6 MDM: 05:56 Differential diagnosis: UTI, urethritis, Cellulitis, abscess. Data reviewed: vital [facility] signs, nurses notes, old medical records, lab test result(s), CBC, electrolytes, urinalysis, radiologic studies, CT scan, ultrasound. Data interpreted: Pulse oximetry: on room air is 97 %. Interpretation: normal. Counseling: I had a detailed discussion with the patient and/or guardian regarding: the historical points, exam findings, and any diagnostic results supporting the discharge/admit diagnosis, the presence of at least one elevated blood pressure reading (>120/80) during this emergency department visit, lab results, radiology results, the need to transfer to another facility, [facility] does not immediately have the required specialist. Response to treatment: the patient's symptoms have mildly improved after treatment. 05:59 Patient medically screened. [facility] 07:23 Physician consultation: was contacted at 07:24, regarding regarding transfer, to [facility]. consult, patient's condition, spoke with DR Sandra, urologist, request transfer to hospitalist services. 04/25 00:24 Order name: CBC with Diff; Complete Time: 02:13 [facility] 04/25 00:24 Order name: Basic Metabolic Panel; Complete Time: 02:13 [facility] 04/25 00:24 Order name: LFT's; Complete Time: 02:13 [facility] 04/25 00:24 Order name: Protime (+inr); Complete Time: 02:13 [facility] 04/25 00:24 Order name: Ptt, Activated; Complete Time: 02:13 [facility] 04/25 03:52 Order name: Urine Dipstick-Ancillary; Complete Time: 03:54 EDMS 04/25 00:37 Order name: CT Pelvis w cont [facility] 04/25 00:38 Order name: US Scrotum Testicles [facility] 04/25 04:58 Order name: Blood Culture Adult (2) [facility] 04/25 05:07 Order name: COVID-19 SARS RT PCR (Document "Date of Onset" if Symptomatic); Complete tt3 Time: 06:33 04/25 08:26 Order name: XRAY Chest (1 view) cp 04/25 00:24 Order name: Urine Dipstick-Ancillary (obtain specimen); Complete Time: 03:52 [facility] 04/25 00:24 Order name: Saline Lock; Complete Time: 00:39 [facility] 04/25 01:01 Order name: Labs - recollect needed; Complete Time: 01:59 lp1 Administered Medications: 00:51 Drug: NS 0.9% 1000 ml Route: IV; Rate: 1000 ml; Site: left antecubital; as6 07:27 Follow up: IV Status: Completed infusion murphy 00:52 Drug: morphine 4 mg Route: IVP; Site: left antecubital; as6 01:13 Follow up: Response: No adverse reaction; RASS: Alert and Calm (0) as6 00:52 Drug: Zofran (Ondansetron) 4 mg Route: IVP; Site: left antecubital; as6 01:13 Follow up: Response: No adverse reaction as6 05:37 Drug: Zosyn (piperacillin-tazobactam) 3.375 grams Route: IVPB; Infused Over: 60 mins; as6 Site: right antecubital; 06:18 Follow up: Response: No adverse reaction; IV Status: Completed infusion; IV Intake: as6 100ml 06:10 Drug: vancoMYCIN 1 grams Route: IVPB; Infused Over: 2 hrs; Site: right antecubital; as6 Disposition Summary: 04/25/21 10:23 Transfer Ordered Accepting Physician: Dr. Nunez(04/25/21 10:23) murphy Transfer Location: [facility](04/25/21 10:23) murphy Reason: Higher level of care(04/25/21 10:23) murphy Condition: Stable(04/25/21 10:23) murphy Diagnosis - Pelvic and perineal pain murphy Forms: - Medication Reconciliation Form murphy - SBAR form murphy Addendum: 04/27/2021 03:28 Co-signature as Attending Physician, Dejuan Billy MD. [facility] Signatures: Dispatcher [employer] EDLeah Connor RN RN lp1 Carlos A Olsen PA PA cp Holmes, Maurice, MD MD 7 Rashid Osullivan RN RN as6 Kristel-StagerAnita Corrections: (The following items were deleted from the chart) 04/25 08:27 05:59 . Urology 7 cp 08:27 05:59 Other Acute Care Facility 7 cp 10:19 05:59 Higher level of care 7 murphy 10:19 05:59 Stable 7 murphy 10:19 05:59 new 7 murphy 10:19 05:59 have improved 7 murphy 10:19 05:59 Perineal and scrotal abscess 7 murphy 10:19 08:27 DR Nunez cp murphy 10:19 08:27 [facility] cp murphy
--- NOTE | 2021-04-25 09:22 | RAD REPORT ---
EXAM DESCRIPTION: RAD - Chest Single View - 04/25/2021 9:09 am CLINICAL HISTORY: covid positive COMPARISON: Chest Single View dated 02/05/2021 FINDINGS: Lines: None. Lungs: No edema or consolidation. Pleural: No significant pleural effusions or pneumothorax. Cardiac: Cardiomegaly. Bones: No acute fractures. Other: IMPRESSION: No acute cardiopulmonary disease.
[2021-04-25 10:32] VITALS: TEMP 97.9
[2021-04-25 10:42] VITALS: BP 114/66; O2SAT 98
--- NOTE | 2021-04-25 12:16 | RAD REPORT ---
EXAM DESCRIPTION: CT - Pelvis W/Cont - 04/25/2021 6:55 am CLINICAL HISTORY: Groin pain; Swelling TECHNIQUE: Axial contrast-enhanced CT pelvis with coronal and sagittal reformats. This exam was perf ormed according to our departmental dose-optimization program, which includes automated exposure cont rol, adjustment of the mA and/or kV according to patient size and/or use of iterative reconstruction technique. COMPARISON: Testicular sonogram 04/22/2021. FINDINGS: Bowel: Unremarkable. Appendix: Normal. Urinary bladder: Unremarkable. Lymph nodes: No pathologically enlarged lymph nodes. Reproductive: Interval development of hydroceles. Vessels: Unremarkable. Bones: No acute fracture or dislocation. Soft tissues: Fluid collection in the posterior inferior midline behind the scrotum / perineum measur ing 8.2 x 3.4 cm (AP x TV) with surrounding inflammatory changes. Difficult to evaluate for definitiv e peripheral walled off rim enhancement due to technique. No associated soft tissue gas. IMPRESSION: 1. Limited evaluation of the posterior inferior fluid collection behind the scrotum / pe rineum as described above. Finding may represent phlegmon however underlying developing early abscess formation not excluded due to limitation of the study. There is no associated soft tissue gas. 2. Interval development of hydrocele. Recommend testicular sonogram to evaluate for pyocele. Electronically signed by: Miguel Ángel Meehan MD 04/25/2021 4:48 AM WORKERS COMPENSATION ANALYST Due to temporary technical issues with the PACS/Fluency reporting system, reports are being signed by the in house radiologist without review as a courtesy to ensure prompt reporting. The interpreting r adiologist is fully responsible for the content of the report.
--- NOTE | 2021-04-25 12:17 | RAD REPORT ---
EXAM DESCRIPTION: US - Scrotum Testicles - 04/25/2021 6:20 am CLINICAL HISTORY: The patient is 25 years old and is Male; SWELLING TECHNIQUE: Real-time ultrasound of the scrotum with color Doppler and image documentation. COMPARISON: Ultrasound April 22, 2021 FINDINGS: RIGHT TESTICLE: The right testicle measures 3.7 x 2.5 2.9 cm. Normal arterial and venous color Doppler and spectral waveform is present. Tiny hypoechoic area superior to the right testicl e is again noted and of uncertain etiology. LEFT TESTICLE: The left testicle measures 3.9 x 2.3 x 2.8 cm. Normal arterial and venous color D oppler and spectral waveform is present. EPIDIDYMIDES: A small cyst is noted inferior to the right testicle and may be within the epididy mal tail. SCROTUM: Bilateral scrotal wall edema is present. IMPRESSION: 1. Persistent diffuse scrotal wall edema which may be secondary to cellulitis. 2. No evidence of torsion. 3. No change in the small cystic structure along the inferior testicle on the right which may be wi thin the epididymal tail. Electronically signed by: Jacki Acosta MD 04/25/2021 6:10 AM CARE TRANSITIONS MANAGER Due to temporary technical issues with the PACS/Fluency reporting system, reports are being signed by the in house radiologist without review as a courtesy to ensure prompt reporting. The interpreting r adiologist is fully responsible for the content of the report.
== END 2021-04-25 10:23 | disposition short-term general hospital (02) ==
LOC: ER 23:57
DX: R10.2 Pelvic and perineal pain (principal); Z20.822 Contact with and (suspected) exposure to COVID-19
CPT/HCPCS: 36415; 71045; 72193; 76870; 80048; 80076; 81003; 85025; 85610; 85730; 87040; 99285; J2405; J2543; J3370; J7030; J7050; Q9967; U0003

== ENCOUNTER 2021-12-11 06:12 | Emergency (ER) | payer SELFPAY ==
--- OUTSIDE RECORDS SUMMARY | 2021-12-11 06:15 | XMS REPORT | Continuity of Care Document ---
:1995 Author Organization [facility] t Address [address] [place] [address] Care Team Providers Name Role Phone Enrique MENDOZA, Nikia Coy Attending Clinician Ruperto MENDOZA, Cynthia Rob Attending Clinician Marta MENDOZA, Julius Mcknight Attending Clinician Kamini MENDOZA, Guanakito Wu Attending Clinician GUANAKITO SUÁREZ Attending Clinician Unavailable CYNTHIA HICKEY Admitting Clinician Unavailable Problems Condition Condition Condition Status Onset Resolution Last Treating Co mments Source Name Details Category Date Date Treatment Clinician Date Scrotal Scrotal Disease Active 2020-[address] [facility] abscess abscess [facility] 00 [facility] Obesity Obesity Disease Active 2020-[address] [facility] (BMI (BMI 2-20 [facility] 30-39.9) 30-39.9) 00[facility]00: Medica l 00 Center COVID-19 COVID-19 Disease Active 2020[facility] Allergies, Adverse Reactions, Alerts Allergy Allergy Status Severity Reaction(s) Onset Inactive Treating Comm ents Source Name Type Date Date Clinician NO KNOWN Allergy Active [facility] Social History Social Habit Start Date Stop Date Quantity Comments Source Sex Assigned At [address] [facility] 00:[facility]00 [facility]00 [facility] Medications Ordered Filled Start Stop Current Ordering Indication Dosage Frequency Signature Comments Components Source Medication Medication Date Date Medication? Clinician (SIG) Name Name gabapentin 2020-05 Yes 300mg Take [address] (NEURONTIN) 2-23 mg by [facility] 300 MG 16:55: mouth as Medical capsule 53 needed Center Back pain . gabapentin 2020-05 Yes 300mg Take [address] (NEURONTIN) 2-23 mg by [facility] 300 MG 16:55: mouth as Medical capsule 53 needed Center Back pain . sulfamethox 2020-05 No 160mg{t Q.5D Take [address] [facility] azole-trime 06-29 rimetho tablet Tiffanie kes thoprim 00:00: 23:59 prim} (160 mg of Me dical (BACTRIM 00 :00 trimethopr Cente r DS) 800-160 im total) mg per by mouth 2 tablet (two) times daily for 15 doses. sulfamethox 2020-05 No 160mg{t Q.5D Take [address] [facility] azole-trime 06-29 rimetho tablet Tiffanie kes thoprim 00:00: 23:59 prim} (160 mg of Me dical (BACTRIM 00 :00 trimethopr Cente r DS) 800-160 im total) mg per by mouth 2 tablet (two) times daily for 15 doses. Vital Signs Vital Name Observation Time Observation Value Comments Source HEIGHT 2021-04-25 13:00:00 172.7 cm WEIGHT 2021-04-25 13:00:00 158.759 kg HEIGHT 2021-04-25 13:00:00 172.7 cm WEIGHT 2021-04-25 13:00:00 158.759 kg Systolic blood 2021-04-28 15:07:00 141 mm[Hg] [facility] Diastolic blood 2021-04-28 15:07:00 90 mm[Hg] [facility] Heart rate 2021-04-28 15:07:00 102 /min [facility] Body temperature 2021-04-28 15:07:00 36.28 Linh [facility] Respiratory rate 2021-04-28 15:07:00 18 /min [facility] Oxygen saturation in 2021-04-28 15:07:00 97 /min [facility] Arterial blood by Medical Ce nter Pulse oximetry Body height 2021-04-25 13:00:00 172.7 cm [facility] Body weight 2021-04-25 13:00:00 158.759 kg [facility] BMI 2021-04-25 13:00:00 53.22 kg/m2 [facility] Procedures Procedure Date / Time Performed Performing Clinician Tika e CREATININE 2021-04-28 03:23:00 Ariel Uribe [facility] CREATININE 2021-04-27 03:16:00 Ariel Uribe [facility] VANCOMYCIN LEVEL, TROUGH 2021-04-26 15:24:00 Cynthia Hickey [facility] BASIC METABOLIC PANEL 2021-04-26 04:07:00 Cynthia Hickey [facility] (7) [facility] HEPATIC FUNCTION PANEL 2021-04-26 04:07:00 Cynthia Hickey [facility] HEMOGLOBIN A1C 2021-04-26 04:07:00 Cynthia Hickey [facility] CBC W/PLT COUNT & AUTO 2021-04-26 04:07:00 Cynthia Hickey [facility] I [facility] CBC W/PLT COUNT & AUTO 2021-04-26 04:07:00 Cynthia Hickey [facility] WOUND CULTURE + GRAM 2021-04-25 20:22:00 Lary Hendrix [facility] Plan of Care Planned Activity Planned Date Details Comments Source Future Scheduled 2021-05-[address] [facility] Test 00:00:00 (12+) [code = [facility] DEPRESSION SCREENING (12+)] Future Scheduled 2021-05-[address] [facility] Test 00:00:00 (12+) [code = [facility] DEPRESSION SCREENING (12+)] Future Scheduled 2021-01-[address] [facility] Test 00:00:00 (#1) [code = [facility] INFLUENZA VACCINE (#1)] Future Scheduled 2021-01-[address] [facility] Test 00:00:00 (#1) [code = [facility] INFLUENZA VACCINE (#1)] Future Scheduled [address] [facility] Test 00:00:00 (procedure) [code = [facility] Center [id number]] Future Scheduled [address] [facility] Test 00:00:00 (procedure) [code = Medical Center [id number]] Future Scheduled 2012 DTAP/TDAP/TD VACCINES [facility] 00:00:00 (1 - Tdap) [code = Medical C enter DTAP/TDAP/TD VACCINES (1 - Tdap)] Future Scheduled 2012 DTAP/TDAP/TD VACCINES [facility] Test 00:00:00 (1 - Tdap) [code = Medical C enter DTAP/TDAP/TD VACCINES (1 - Tdap)] Future Scheduled 2011-11-02 HEPATITIS C SCREENING [facility] 00:00:00 [code = HEPATITIS C Medical Center SCREENING] Future Scheduled 2011-11-02 HEPATITIS C [facility]CRE[facility]ING [facility] 00:00[facility]00 [code = HEPATITIS C Medical Center SCREENING] Future Scheduled 1998 COVID-19 VACCINE (1) [facility] Test 00:00:00 [code = COVID-[address] VACCINE (1)] Future Scheduled 1998 COVID-19 VACCINE (1) [facility] Test 00:00:00 [code = COVID-[address] VACCINE (1)] Encounters Start End Encounter Admission Attending Care Care Encounter Source Date/Time Date/Time Type Type Clinicians Facility Department ID 2021-04-25 2021-04-28 Hospital ER Nikia Nunez [facility] [id number] [facility] 11:36:00 16:55:00 Encounter Cynthia Hickey [facility], [facility] 2021-04-25 2021-04-28 Inpatient ER KAMINI, [facility] Urology [id number] [facility] 11:36:00 16:55:00 [facility] 2021-04-25 2021-04-25 Travel [facility] [id number] [facility] Results Test Description Test Time Test Comments Results Result Comments Source Wound culture + gram stain 2021-04-28 09:46:07 Test Item Value Reference Range Interpretation Comme nts Result (test code = 6463-4) No growth Gram Stain Result (test code = 1123) 1+ gram negative rods [facility] gram [id number] 09:46:07 Test Item Value Reference Range Interpretation Comments Result (test code = No growth 6463-4) Gram Stain Result (test 1+ gram negative rods code = 1123) [facility]AM [id number] 09:46:07 Test Item Value Reference Range Interpretation Comments CULTURE (BEAKER) (test No growth code = 1095) GRAM STAIN RESULT 4+ WBCs (BEAKER) (test code = 1123) GRAM STAIN RESULT 2+ gram positive cocci (BEAKER) (test code = in pairs and clusters 71061) GRAM STAIN RESULT 1+ gram negative rods (BEAKER) (test code = 13614) [id number] 06:31:19 Test Item Value Reference Range Interpretation Comments Creatinine (test 0.74 mg/dL 0.57-1.25 Specimen sl ightly code = 2160-0) hemolyzed EGFR (test code = 127 mL/min/1.73 [place] [address]-5) NOT ACCURATE CREATININE CLEARANCE IN PREDICTING GLOMERULAR FILTRATION RATE . ESTIMATED GFR I S NOT APPLICABLE FOR DIALYSIS PATIEN TS. RICHIE (test code = Divisional Storekeeper ID - RICHIE) [facility]2021-12-23 06:31:19 Test Item Value Reference Range Interpretation Comments Creatinine (test 0.74 mg/dL 0.57-1.25 Specimen sl ightly code = 2160-0) hemolyzed EGFR (test code = 127 mL/min/1.73 [place] [address]-2) NOT ACCURATE CREATININE CLEARANCE IN PREDICTING GLOMERULAR FILTRATION RATE . ESTIMATED GFR I S NOT APPLICABLE FOR DIALYSIS PATIEN TS. RICHIE (test code = Divisional Storekeeper ID - RICHIE) [facility]2021-12-23 06:31:19 Test Item Value Reference Range Interpretation Comments CREATININE (BEAKER) 0.74 mg/dL 0.57-1.25 Specimen slightly (test code = 358) hemolyzed EGFR (BEAKER) (test 127 mL/min/1.73 ESTIM ATED GFR IS code = 1092) sq m NOT ACCURATE CREATININE CLEARANCE IN PREDICTING GLOMERULAR FILTRATION RATE . ESTIMATED GFR I S NOT APPLICABLE FOR DIALYSIS PATIEN TS. Divisional Storekeeper ID Lu OLMSTEAD [id number] 04:01:02 Test Item Value Reference Range Interpretation Comments CREATININE (BEAKER) 0.77 mg/dL 0.57-1.25 Specimen slightly (test code = 358) hemolyzed EGFR (BEAKER) (test 121 mL/min/1.73 ESTIM ATED GFR IS code = 1092) sq m NOT ACCURATE CREATININE CLEARANCE IN PREDICTING GLOMERULAR FILTRATION RATE . ESTIMATED GFR I S NOT APPLICABLE FOR DIALYSIS PATIEN TS. Divisional Storekeeper ID - PAOLA LVancomycin level, [id number] 15:54:18 Test Item Value Reference Range Interpretation Comments Vancomycin Tr (test code = 14.8 ug/mL 10.0-20.0 4092-3) RICHIE (test code = RICHIE) Divisional Storekeeper ID Lu Dickson Lab Interpretation (test Normal code = 46823-0) [facility], [id number] 15:54:18 Test Item Value Reference Range Interpretation Comments Vancomycin Tr (test code = 14.8 ug/mL 10.0-20.0 4092-3) RICHIE (test code = RICHIE) Divisional Storekeeper ID Lu OLMSTEAD M Lab Interpretation (test Normal code = 89514-0) [facility] CenterVANCOMYCIN LEVEL, [id number] 15:54:18 Test Item Value Reference Range Interpretation Comments VANCOMYCIN TROUGH (BEAKER) (test 14.8 ug/mL 10.0-20.0 code = 522) Divisional Storekeeper ID - ISHAN MHemoglobin [id number] 08:41:59 Test Item Value Reference Range Interpretation Comments Hemoglobin A1C (test code = 4548-4) 6.4 % 4.3-6.1 H Lab Interpretation (test code = Abnormal 48213-4) [facility] Center[facility] [id number] 08:41:59 Test Item Value Reference Range Interpretation Comments Hemoglobin A1C (test code = 4548-4) 6.4 % 4.3-6.1 H Lab Interpretation (test code = Abnormal 79168-5) [facility] CenterHEMOGLOBIN [id number] 08:41:59 Test Item Value Reference Range Interpretation Comments HEMOGLOBIN A1C (BEAKER) (test code = 6.4 % 4.3-6.1 H 368) Hepatic function [id number] 05:01:29 Test Item Value Reference Range Interpretation Comments Protein, Total (test 6.6 See_Comment [Autom ated code = 2885-2) message] The system which generated this result transmit candace reference range : 6.0 - 8.3 gm/dL . The reference range was not u sed to interpret th is result as normal/abnormal . Albumin (test code = 3.5 g/dL 3.5-5.0 16092-3) Total Bilirubin (test 0.8 mg/dL 0.2-1.2 code = 1974-06) Bilirubin, Direct 0.3 mg/dL 0.1-0.5 (test code = 1967-11) Alkaline Phosphatase 60 U/L 40-150 (test code = 6768-6) AST (test code = 12 U/L - 1920-8) ALT (test code = 29 U/L 6-55 1742-6) RICHIE (test code = RICHIE) Divisional Storekeeper ID - ISHAN M Lab Interpretation Normal (test code = 16639-8) [facility] Center[facility]atic function [id number] 05:01:29 Test Item Value Reference Range Interpretation Comments Protein, Total (test 6.6 See_Comment [Autom ated code = 2885-2) message] The system which generated this result transmit candace reference range : 6.0 - 8.3 gm/dL . The reference range was not u sed to interpret th is result as normal/abnormal . Albumin (test code = 3.5 g/dL 3.5-5.0 43165-4) Total Bilirubin (test 0.8 mg/dL 0.2-1.2 code = 1974-) Bilirubin, Direct 0.3 mg/dL 0.1-0.5 (test code = 1967-) Alkaline Phosphatase 60 U/L 40-150 (test code = 6768-6) AST (test code = 12 U/L 5-34 1920-8) ALT (test code = 29 U/L 6-55 1742-6) RICHIE (test code = RICHIE) Divisional Storekeeper ID - ISHAN M Lab Interpretation Normal (test code = 53010-9) [facility] Center[facility]ATIC FUNCTION [id number] 05:01:29 Test Item Value Reference Range Interpretation Comments TOTAL PROTEIN (BEAKER) (test code = 6.6 gm/dL 6.0-8.3 770) ALBUMIN (BEAKER) (test code = 1145) 3.5 g/dL 3.5-5.0 BILIRUBIN TOTAL (BEAKER) (test code 0.8 mg/dL 0.2-1.2 = 377) BILIRUBIN DIRECT (BEAKER) (test 0.3 mg/dL 0.1-0.5 code = 706) ALKALINE PHOSPHATASE (BEAKER) (test 60 U/L 40-150 code = 346) AST (SGOT) (BEAKER) (test code = 12 U/L 5-34 353) ALT (SGPT) (BEAKER) (test code = 29 U/L 6-55 347) Divisional Storekeeper ID - ISHAN MBasic metabolic [id number] 05:01:23 Test Item Value Reference Range Interpretation Comments Sodium (test code = 138 meq/L 842-674 6096-2) Potassium (test code = 3.5 meq/L 3.5-5.1 2823-3) Chloride (test code = 106 meq/L 98-107 2075-0) CO2 (test code = 23 meq/L 22-29 8-9) BUN (test code = 7 mg/dL 7-21 3094-0) Creatinine (test code 0.75 mg/dL 0.57-1.25 = 2160-0) Glucose (test code = 162 mg/dL 70-105 H 2345-7) Calcium (test code = 8.6 mg/dL 8.4-10.2 48012-2) EGFR (test code = 125 mL/min/1.[place] [address]-1) NOT ACCURATE CREATININE CLEARANCE IN PREDICTING GLOMERULAR FILTRATION RATE . ESTIMATED GFR I S NOT APPLICABLE FOR DIALYSIS PATIENTS. RICHIE (test code = RICHIE) Divisional Storekeeper EVA - ISHAN Dickson Lab Interpretation Abnormal (test code = 98840-8) [facility] CenterBasic metabolic [id number] 05:01:23 Test Item Value Reference Range Interpretation Comments Sodium (test code = 138 meq/L 123-271 3101-2) Potassium (test code = 3.5 meq/L 3.5-5.1 2823-3) Chloride (test code = 106 meq/L 98-107 2075-0) CO2 (test code = 23 meq/L 22-29 2028-9) BUN (test code = 7 mg/dL 7-21 3094-0) Creatinine (test code 0.75 mg/dL 0.57-1.25 = 2160-0) Glucose (test code = 162 mg/dL 70-105 H 2345-7) Calcium (test code = 8.6 mg/dL 8.4-10.2 98170-1) EGFR (test code = 125 mL/min/1.[place] [address]-9) NOT ACCURATE CREATININE CLEARANCE IN PREDICTING GLOMERULAR FILTRATION RATE . ESTIMATED GFR I S NOT APPLICABLE FOR DIALYSIS PATIENTS. RICHIE (test code = RICHIE) Divisional Storekeeper ID - ISHAN M Lab Interpretation Abnormal (test code = 68355-7) [facility] CenterBASI METABOLIC [id number] 05:01:23 Test Item Value Reference Range Interpretation Comments SODIUM (BEAKER) 138 meq/L 136-145 (test code = 381) POTASSIUM (BEAKER) 3.5 meq/L 3.5-5.1 (test code = 379) CHLORIDE (BEAKER) 106 meq/L 98-107 (test code = 382) CO2 (BEAKER) (test 23 meq/L - code = 355) BLOOD UREA NITROGEN 7 mg/dL 7- (BEAKER) (test code = 354) CREATININE (BEAKER) 0.75 mg/dL 0.57-1.25 (test code = 358) GLUCOSE RANDOM 162 mg/dL 70-105 H (BEAKER) (test code = 652) CALCIUM (BEAKER) 8.6 mg/dL 8.4-10.2 (test code = 697) EGFR (BEAKER) (test 125 mL/min/1.73 ESTIM ATED GFR IS code = 1092) sq m NOT ACCURATE CREATININE CLEARANCE IN PREDICTING GLOMERULAR FILTRATION RATE . ESTIMATED GFR I S NOT APPLICABLE FOR DIALYSIS PATIEN TS. Divisional Storekeeper ID - ISHAN [facility] with platelet count + automated [id number] 04:43:19 Test Item Value Reference Range Interpretation Comments WBC (test code = 6690-2) 9.6 See_Comment [A utomated message] The system Deeplink generated this result transmitted ref erence range: 3.5 - 10 .5 K/L. The refe rence range was not u sed to interpret this result as normal/abnor mal. RBC (test code = 789-8) 5.04 See_Comment [Au tomated message] The system Deeplink generated this result transmitted ref erence range: 4.63 - 6 .08 M/L. The refe rence range was not u sed to interpret this result as normal/abnor mal. MCHC (test code = 786-4) 34.7 See_Comment [A utomated message] The system Deeplink generated this result transmitted ref erence range: 32.3 - 3 6.5 GM/DL. The refe rence range was not u sed to interpret this result as normal/abnor mal. Hematocrit (test code = 42.1 % 40.1-51.0 4544-3) MCV (test code = 787-2) 83.5 fL 79.0-92.2 MCH (test code = 785-6) 29.0 pg 25.7-32.2 RDW (test code = 788-0) 12.1 % 11.6-14.4 Platelets (test code = 168 See_Comment [Aut omated message] 777-3) The system Deeplink generated this result transmitted ref erence range: 150 - 45 0 K/CU MM. The referen ce range was not u sed to interpret this result as normal/abnor mal. MPV (test code = 11.7 fL 9.4-12.4 72977-3) nRBC (test code = 413) 0 See_Comment [Aut omated message] The system Deeplink generated this result transmitted ref erence range: 0 - 0 /1 00 WBC. The refere nce range was not u sed to interpret this result as normal/abnor mal. % Neutros (test code = 74 % 429) % Lymphs (test code = 18 % 430) % Monos (test code = 5 % 431) % Eos (test code = 432) 2 % % Baso (test code = 437) 0 % # Neutros (test code = 7.05 See_Comment H [Aut omated message] 670) The system Deeplink generated this result transmitted ref erence range: 1.78 - 5 .38 K/L. The refe rence range was not u sed to interpret this result as normal/abnor mal. # Lymphs (test code = 1.74 See_Comment [Auto mated message] 414) The system Deeplink generated this result transmitted ref erence range: 1.32 - 3 .57 K/L. The refe rence range was not u sed to interpret this result as normal/abnor mal. # Monos (test code = 0.47 See_Comment [Autom ated message] 415) The system Deeplink generated this result transmitted ref erence range: 0.30 - 0 .82 K/L. The refe rence range was not u sed to interpret this result as normal/abnor mal. # Eos (test code = 416) 0.21 See_Comment [Au tomated message] The system Deeplink generated this result transmitted ref erence range: 0.04 - 0 .54 K/L. The refe rence range was not u sed to interpret this result as normal/abnor mal. # Baso (test code = 417) 0.03 See_Comment [A utomated message] The system Deeplink generated this result transmitted ref erence range: 0.01 - 0 .08 K/L. The refe rence range was not u sed to interpret this result as normal/abnor mal. Immature 1 % 0-1 Granulocytes-Relative (test code = 2801) Lab Interpretation (test Abnormal code = 42581-7) [facility] with platelet count + automated [id number] 04:43:19 Test Item Value Reference Range Interpretation Comments WBC (test code = 6690-2) 9.6 See_Comment [A utomated message] The system Deeplink generated this result transmitted ref erence range: 3.5 - 10 .5 K/L. The refe rence range was not u sed to interpret this result as normal/abnor mal. RBC (test code = 789-8) 5.04 See_Comment [Au tomated message] The system Deeplink generated this result transmitted ref erence range: 4.63 - 6 .08 M/L. The refe rence range was not u sed to interpret this result as normal/abnor mal. MCHC (test code = 786-4) 34.7 See_Comment [A utomated message] The system Deeplink generated this result transmitted ref erence range: 32.3 - 3 6.5 GM/DL. The refe rence range was not u sed to interpret this result as normal/abnor mal. Hematocrit (test code = 42.1 % 40.1-51.0 4544-3) MCV (test code = 787-2) 83.5 fL 79.0-92.2 MCH (test code = 785-6) 29.0 pg 25.7-32.2 RDW (test code = 788-0) 12.1 % 11.6-14.4 Platelets (test code = 168 See_Comment [Aut omated message] 777-3) The system Deeplink generated this result transmitted ref erence range: 150 - 45 0 K/CU MM. The referen ce range was not u sed to interpret this result as normal/abnor mal. MPV (test code = 11.7 fL 9.4-12.4 10400-3) nRBC (test code = 413) 0 See_Comment [Aut omated message] The system Deeplink generated this result transmitted ref erence range: 0 - 0 /1 00 WBC. The refere nce range was not u sed to interpret this result as normal/abnor mal. % Neutros (test code = 74 % 429) % Lymphs (test code = 18 % 430) % Monos (test code = 5 % 431) % Eos (test code = 432) 2 % % Baso (test code = 437) 0 % # Neutros (test code = 7.05 See_Comment H [Aut omated message] 670) The system Deeplink generated this result transmitted ref erence range: 1.78 - 5 .38 K/L. The refe rence range was not u sed to interpret this result as normal/abnor mal. # Lymphs (test code = 1.74 See_Comment [Auto mated message] 414) The system Deeplink generated this result transmitted ref erence range: 1.32 - 3 .57 K/L. The refe rence range was not u sed to interpret this result as normal/abnor mal. # Monos (test code = 0.47 See_Comment [Autom ated message] 415) The system Deeplink generated this result transmitted ref erence range: 0.30 - 0 .82 K/L. The refe rence range was not u sed to interpret this result as normal/abnor mal. # Eos (test code = 416) 0.21 See_Comment [Au tomated message] The system Deeplink generated this result transmitted ref erence range: 0.04 - 0 .54 K/L. The refe rence range was not u sed to interpret this result as normal/abnor mal. # Baso (test code = 417) 0.03 See_Comment [A utomated message] The system Deeplink generated this result transmitted ref erence range: 0.01 - 0 .08 K/L. The refe rence range was not u sed to interpret this result as normal/abnor mal. Immature 1 % 0-1 Granulocytes-Relative (test code = 2801) Lab Interpretation (test Abnormal code = 45733-6) [facility] W/PLT COUNT & AUTO [id number] 04:43:19 Test Item Value Reference Range Interpretation Comments WHITE BLOOD CELL COUNT (BEAKER) 9.6 K/ L 3.5-10.5 (test code = 775) RED BLOOD CELL COUNT (BEAKER) 5.04 M/ L 4.63-6.08 (test code = 761) HEMOGLOBIN (BEAKER) (test code = 14.6 GM/DL 13.7-17.5 410) HEMATOCRIT (BEAKER) (test code = 42.1 % 40.1-51.0 411) MEAN CORPUSCULAR VOLUME (BEAKER) 83.5 fL 79.0-92.2 (test code = 753) MEAN CORPUSCULAR HEMOGLOBIN 29.0 pg 25.7-32.2 (BEAKER) (test code = 751) MEAN CORPUSCULAR HEMOGLOBIN CONC 34.7 GM/DL 32.3-36.5 (BEAKER) (test code = 752) RED CELL DISTRIBUTION WIDTH 12.1 % 11.6-14.4 (BEAKER) (test code = 412) PLATELET COUNT (BEAKER) (test 168 K/CU MM 150-450 code = 756) MEAN PLATELET VOLUME (BEAKER) 11.7 fL 9.4-12.4 (test code = 754) NUCLEATED RED BLOOD CELLS 0 /100 WBC 0-0 (BEAKER) (test code = 413) NEUTROPHILS RELATIVE PERCENT 74 % (BEAKER) (test code = 429) LYMPHOCYTES RELATIVE PERCENT 18 % (BEAKER) (test code = 430) MONOCYTES RELATIVE PERCENT 5 % (BEAKER) (test code = 431) EOSINOPHILS RELATIVE PERCENT 2 % (BEAKER) (test code = 432) BASOPHILS RELATIVE PERCENT 0 % (BEAKER) (test code = 437) NEUTROPHILS ABSOLUTE COUNT 7.05 K/ L 1.78-5.38 H (BEAKER) (test code = 670) LYMPHOCYTES ABSOLUTE COUNT 1.74 K/ L 1.32-3.57 (BEAKER) (test code = 414) MONOCYTES ABSOLUTE COUNT (BEAKER) 0.47 K/ L 0.30-0.82 (test code = 415) EOSINOPHILS ABSOLUTE COUNT 0.21 K/ L 0.04-0.54 (BEAKER) (test code = 416) BASOPHILS ABSOLUTE COUNT (BEAKER) 0.03 K/ L 0.01-0.08 (test code = 417) IMMATURE GRANULOCYTES-RELATIVE 1 % 0-1 PERCENT (BEAKER) (test code = 0995)
[2021-12-11 06:49] LABS: Absolute Lymphocytes (CBC) 2.6 K/uL (0.7-4.9); Hematocrit 45.5 % (39.6-49.0); Lymphocytes % 21.1 % (15.3-44.8); MCV 85.2 fL (80-100); MPV 9.1 fL (7.6-11.3); RBC Red Blood Cell Count 5.34 M/uL (4.33-5.43)
[2021-12-11 07:12] LABS: SARS-CoV-2 Antigen Rapid Res Negative (Negative)
[2021-12-11] MEDS ORDERED: METHYLPREDNISOLONE 125 MG INJ ONE (07:18)
[2021-12-11] MEDS ORDERED: predniSONE 20 MG TAB ONE (07:18)
[2021-12-11] MEDS ORDERED: ALBUTEROL 2.5 MG/3 ML NEB SOL ONE ×2 (07:19→07:25)
[2021-12-11] MEDS ORDERED: NA CHLORIDE 0.9% 0 ML ONE (07:19)
[2021-12-11] MEDS ORDERED: IPRATROPIUM BROM 0.5MG/2.5ML ONE (07:25)
[2021-12-11] MEDS ORDERED: AZITHROMYCIN 250 MG TAB ONE (08:01)
[2021-12-11 08:06] LABS: Troponin High Sensitivity 5.9 pg/mL (<58.9)
[2021-12-11 08:32] LABS: Potassium 3.9 mmol/L (3.5-5.1)
[2021-12-11 08:46] LABS: Albumin 3.3 g/dL (3.4-5.0); Bilirubin Total 0.3 mg/dL (0.2-1.0)
--- NOTE | 2021-12-11 08:54 | EDPHYS ---
Physician Documentation [facility] Name: Abdelrahman Chavez Age: 26 yrs Sex: Male : 1995 Arrival Date: 12/11/2021 Time: 06:17 Bed 16 Private MD: ED Physician Carlos A Noble HPI: 12/11 07:30 This 26 yrs old Male presents to ER via Ambulatory with complaints of andrew Shortness Of Breath. 07:30 This 26 yrs old Male presents to ER via Ambulatory with complaints of andrew Shortness Of Breath. 07:30 The patient has shortness of breath at rest, with light activity. Onset: The andrew symptoms/episode began/occurred 2 day(s) ago. Duration: The symptoms are continuous, and are unchanged since they started. The patient's shortness of breath has no apparent modifying factors. Associated signs and symptoms: Pertinent positives: non-productive cough. Severity of symptoms: At their worst the symptoms were mild moderate in the emergency department the symptoms are unchanged. The patient has experienced similar episodes in the past, a few times. Historical: - Allergies: 06:28 No Known Allergies; tw5 - PMHx: 06:28 Anxiety; Asthma; Depression; tw5 - PSHx: 06:28 None; tw5 - Immunization history:: unknown. - Social history:: Smoking status: Patient denies any tobacco usage or history of. Patient uses street drugs, marijuana. ROS: 07:31 Constitutional: Negative for fever, chills, and weight loss, Eyes: Negative for injury, anrdew pain, redness, and discharge, ENT: Negative for injury, pain, and discharge, Neck: Negative for injury, pain, and swelling, Cardiovascular: Negative for chest pain, palpitations, and edema, Abdomen/GI: Negative for abdominal pain, nausea, vomiting, diarrhea, and constipation, Back: Negative for injury and pain, : Negative for injury, bleeding, discharge, and swelling, MS/Extremity: Negative for injury and deformity, Skin: Negative for injury, rash, and discoloration, Neuro: Negative for headache, weakness, numbness, tingling, and seizure, Psych: Negative for depression, anxiety, suicide ideation, homicidal ideation, and hallucinations, Allergy/Immunology: Negative for hives, rash, and allergies, Endocrine: Negative for neck swelling, polydipsia, polyuria, polyphagia, and marked weight changes, Hematologic/Lymphatic: Negative for swollen nodes, abnormal bleeding, and unusual bruising. 07:31 Respiratory: Positive for cough, with no reported sputum. Exam: 07:31 Constitutional: This is a well developed, well nourished patient who is awake, alert, andrew and in no acute distress. Head/Face: Normocephalic, atraumatic. Eyes: Pupils equal round and reactive to light, extra-ocular motions intact. Lids and lashes normal. Conjunctiva and sclera are non-icteric and not injected. Cornea within normal limits. Periorbital areas with no swelling, redness, or edema. ENT: Nares patent. No nasal discharge, no septal abnormalities noted. Tympanic membranes are normal and external auditory canals are clear. Oropharynx with no redness, swelling, or masses, exudates, or evidence of obstruction, uvula midline. Mucous membranes moist. Neck: Trachea midline, no thyromegaly or masses palpated, and no cervical lymphadenopathy. Supple, full range of motion without nuchal rigidity, or vertebral point tenderness. No Meningismus. Chest/axilla: Normal chest wall appearance and motion. Nontender with no deformity. No lesions are appreciated. Cardiovascular: Regular rate and rhythm with a normal S1 and S2. No gallops, murmurs, or rubs. Normal PMI, no JVD. No pulse deficits. Respiratory: Lungs have equal breath sounds bilaterally, clear to auscultation and percussion. No rales, rhonchi or wheezes noted. No increased work of breathing, no retractions or nasal flaring. Abdomen/GI: Soft, non-tender, with normal bowel sounds. No distension or tympany. No guarding or rebound. No evidence of tenderness throughout. Back: No spinal tenderness. No costovertebral tenderness. Full range of motion. Male : Normal genitalia with no discharge or lesions. Skin: Warm, dry with normal turgor. Normal color with no rashes, no lesions, and no evidence of cellulitis. MS/ Extremity: Pulses equal, no cyanosis. Neurovascular intact. Full, normal range of motion. Neuro: Awake and alert, GCS 15, oriented to person, place, time, and situation. Cranial nerves II-XII grossly intact. Motor strength 5/5 in all extremities. Sensory grossly intact. Cerebellar exam normal. Normal gait. Psych: Awake, alert, with orientation to person, place and time. Behavior, mood, and affect are within normal limits. 07:31 Musculoskeletal/extremity: DVT Exam: No signs of deep vein thrombosis. no pain, no swelling, no tenderness, negative Homans' sign noted on exam, no appreciated bluish discoloration, no erythema, no increased warmth. 08:28 ECG was reviewed by the Attending Physician. [facility] Vital Signs: 06:27 BP 139 / 80; Pulse 85; Resp 18; Temp 98.1; Pulse Ox 100% ; Weight 151.05 kg; Height 5 tw5 ft. 9 in. (175.26 cm); Pain 0/10; 07:29 Pulse 86; tp1 08:00 BP 140 / 72; Pulse 99; Resp 18; Pulse Ox 96% ; tp1 09:00 BP 126 / 65; Pulse 90; Resp 18; Pulse Ox 98% on R/A; tp1 06:27 Body Mass Index 49.17 (151.05 kg, 175.26 cm) tw5 MDM: 06:19 Patient medically screened. [facility] 07:31 Differential diagnosis: Anemia Anxiety Reaction asthma, Bronchitis CHF exacerbation, andrew pneumonia, Pneumothorax pulmonary edema, Pulmonary Embolism reactive airway disease. Antibiotic administration: The patient is discharged and will get outpatient antibiotics, Zithromax. The patient's Wells Deep Vein Thrombosis Score was calculated as follows: Total Score: 0-2 Pts- Low Risk. The patient's pulmonary embolism risk score was calculated as follows: Total Score: 0-2 points. This patient was found to be at low risk for a pulmonary embolism by using the Well's assessment criteria. Immunization status:. Data reviewed: vital signs, nurses notes, lab test result(s), EKG, radiologic studies, plain films. 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 Test interpretation: by ED physician or midlevel provider: ECG, plain radiologic studies. Counseling: I had a detailed discussion with the patient and/or guardian regarding: the historical points, exam findings, and any diagnostic results supporting the discharge/admit diagnosis, lab results, radiology results. 12/11 06:27 Order name: CBC with Diff; Complete Time: 07:29 [facility] 12/11 06:27 Order name: Comprehensive Metabolic Panel; Complete Time: 08:51 [facility] 12/11 06:27 Order name: Flu; Complete Time: 07:29 [facility] 12/11 06:27 Order name: SARS RAPID; Complete Time: 07:29 [facility] 12/11 07:29 Order name: D-Dimer; Complete Time: 08:27 [facility] 08 07:29 Order name: Troponin High Sensitivity; Complete Time: 08:27 [facility] 08 06:27 Order name: Chest Pa And Lat (2 Views) XRAY [facility] 12/11 07:29 Order name: EKG; Complete Time: 07:31 [facility] 12/11 07:33 Order name: BNP; Complete Time: 08:27 [facility] 12/11 07:29 Order name: EKG - Nurse/Tech; Complete Time: 08:04 [facility] 12/11 07:31 Order name: Labs - recollect needed: chemistry; Complete Time: 07:48 em1 EC:28 Rate is 93 beats/min. Rhythm is regular. QRS [place] is Normal. VA interval is normal. QRS andrew interval is normal. QT interval is normal. No Q waves. T waves are Normal. No ST changes noted. Clinical impression: Normal ECG and No evidence of ischemia. Interpreted by me. Reviewed by me. Administered Medications: 07:20 Drug: predniSONE 60 mg Route: PO; tp1 09:12 Follow up: Response: No adverse reaction tp1 07:23 Drug: SOLU-Medrol (methylPrednisoLONE) 125 mg Route: IVP; Site: right antecubital; tp1 09:12 Follow up: Response: No adverse reaction tp1 07:26 Drug: NS 0.9% 1000 ml Route: IV; Rate: 1 bolus; Site: right antecubital; tp1 09:13 Follow up: IV Status: Completed infusion; IV Intake: 100ml tp1 07:29 Drug: Albuterol - atroVENT (ipratropium) (3:1) (2.5 mg - 0.5 mg) 3 ml Route: Nebulizer; tp1 09:13 Follow up: Response: Marked relief of symptoms tp1 07:58 Drug: Zithromax (azithromycin) 500 mg Route: PO; tp1 09:12 Follow up: Response: No adverse reaction tp1 Disposition Summary: 12/11/21 08:53 Discharge Ordered Location: Home andrew Problem: new andrew Symptoms: have improved andrew Condition: Stable andrew Diagnosis - Acute upper respiratory infection, unspecified andrew - Dyspnea andrew - Obesity, unspecified andrew Followup: andrew - With: Private Physician - When: 2 - 3 days - Reason: Recheck today's complaints, Continuance of care, Re-evaluation by your physician Discharge Instructions: - Discharge Summary Sheet andrew - Obesity, Adult andrew - Cool Mist Vaporizer andrew - Upper Respiratory Infection, Adult, [id number] andrew - Cough, Adult [facility] Forms: - Medication Reconciliation Form [facility] - Thank You Letter andrew - Antibiotic Education andrew - Prescription Opioid Use [facility] Prescriptions: - albuterol sulfate 90 mcg/actuation Inhalation HFA aerosol inhaler - inhale 2 puff by INHALATION route every 4-6 hours; 1 Pump; Refills: 0, Product andrew Selection Permitted - Zithromax Z-Chepe 250 mg Oral Tablet - take 1 tablet by ORAL route as directed for 5 days Day 1 - take two (2) tablets andrew one time. Day 2, 3, 4 , 5 take one (1) tablet once daily.; 6 tablet; Refills: 0, Product Selection Permitted - Prednisone 20 mg Oral Tablet - take 2 tablets by ORAL route once daily for 5 days; 10 tablet; Refills: 0, [facility] Product Selection Permitted - Albuterol Sulfate 2.5 mg /3 mL (0.083 %) Inhalation Solution for Nebulization - inhale 1 unit by NEBULIZATION route every 6 hours As needed; 1 box; Refills: 0, [facility] Product Selection Permitted Signatures: Dispatcher [employer] Carlos A Figueroa MD MD cha Martinez, Eric em1 Rashmi Saravia tw5 Rashmi Kumar, RN RN tp1
--- NOTE | 2021-12-11 08:54 | ER ---
Nurse's Notes [facility] Name: Abdelrahman Chavez Age: 26 yrs Sex: Male : 1995 Arrival Date: 12/11/2021 Time: 06:17 Bed 16 Private MD: Diagnosis: Acute upper respiratory infection, unspecified;Dyspnea;Obesity, unspecified Presentation: 12/11 06:27 Chief complaint: Patient states: "I just woke up feeling really anxious and like I tw5 couldn't breath.". Coronavirus screen: shortness of breath. Ebola Screen: Patient negative for fever greater than or equal to 101.5 degrees Fahrenheit, and additional compatible Ebola Virus Disease symptoms Patient denies exposure to infectious person. Patient denies travel to an Ebola-affected area in the 21 days before illness onset. Initial Sepsis Screen: Does the patient meet any 2 criteria? No. Patient's initial sepsis screen is negative. Does the patient have a suspected source of infection? No. Patient's initial sepsis screen is negative. Risk Assessment: Do you want to hurt yourself or someone else? Patient reports no desire to harm self or others. Onset of symptoms was December 11, 2021. 06:27 Method Of Arrival: Ambulatory tw5 06:27 Acuity: NEAL 3 tw5 Triage Assessment: 06:28 General: Appears obese, Behavior is anxious. Pain: Denies pain. Respiratory: Reports tw5 shortness of breath at rest Onset: The symptoms/episode began/occurred this morning, the patient has mild shortness of breath. Historical: - Allergies: 06:28 No Known Allergies; tw5 - PMHx: 06:28 Anxiety; Asthma; Depression; tw5 - PSHx: 06:28 None; tw5 - Immunization history:: unknown. - Social history:: Smoking status: Patient denies any tobacco usage or history of. Patient uses street drugs, marijuana. Screenin:16 Abuse screen: Denies threats or abuse. Nutritional screening: No deficits noted. tp1 Tuberculosis screening: No symptoms or risk factors identified. Fall Risk No fall in past 12 months (0 pts). IV access (20 points). Ambulatory Aid- None/Bed Rest/Nurse Assist (0 pts). Gait- Normal/Bed Rest/Wheelchair (0 pts) Mental Status- Oriented to own ability (0 pts). Total Alcocer Fall Scale indicates No Risk (0-24 pts). Assessment: 06:51 General: Appears in no apparent distress. comfortable, Behavior is calm, cooperative. kl Pain: Denies pain. Neuro: No deficits noted. Cardiovascular: No deficits noted. Heart tones S1 S2. Respiratory: No deficits noted. Airway is patent Respiratory effort is even, unlabored, Breath sounds are clear bilaterally. 07:20 Reassessment: Patient appears in no apparent distress at this time. Patient and/or tp1 family updated on plan of care and expected duration. Pain level reassessed. Patient is alert, oriented x 3, equal unlabored respirations, skin warm/dry/pink. denies pain. CO SOB without exertion. respirations even and unlabored, no accessory muscle use noted. 07:58 Reassessment: states decrease in SOB after breathing treatment. tp1 08:20 Reassessment: Patient appears in no apparent distress at this time. No changes from tp1 previously documented assessment. Patient and/or family updated on plan of care and expected duration. Pain level reassessed. Patient is alert, oriented x 3, equal unlabored respirations, skin warm/dry/pink. Patient denies pain at this time. 09:11 Cardiovascular: Rhythm is regular. tp1 Vital Signs: 06:27 BP 139 / 80; Pulse 85; Resp 18; Temp 98.1; Pulse Ox 100% ; Weight 151.05 kg; Height 5 tw5 ft. 9 in. (175.26 cm); Pain 0/10; 07:29 Pulse 86; tp1 08:00 BP 140 / 72; Pulse 99; Resp 18; Pulse Ox 96% ; tp1 09:00 BP 126 / 65; Pulse 90; Resp 18; Pulse Ox 98% on R/A; tp1 06:27 Body Mass Index 49.17 (151.05 kg, 175.26 cm) tw5 ED Course: 06:17 Patient arrived in ED. kl 06:19 Carlos A Noble MD is Attending Physician. [facility] 06:28 Triage completed. tw5 06:51 SARS RAPID Sent. kl 06:51 Flu Sent. kl 06:51 CBC with Diff Sent. kl 06:51 Comprehensive Metabolic Panel Sent. kl 06:53 Inserted saline lock: 20 gauge in right antecubital area, using aseptic technique. kl 07:08 Marisol Murguia, RN is Primary Nurse. vg1 07:15 Arm band placed on. tp1 07:20 Patient has correct armband on for positive identification. Bed in low position. Call tp1 light in reach. Side rails up X 1. 08:04 EKG done, by ED staff. tp1 08:13 Primary Nurse role handed off by Marisol Murguia RN tp1 08:13 Rashmi Kumar, LYLE is Primary Nurse. tp1 08:42 Chest Pa And Lat (2 Views) XRAY In Process Unspecified. EDMS 09:12 No provider procedures requiring assistance completed. IV discontinued, intact, tp1 bleeding controlled, No redness/swelling at site. Pressure dressing applied. 09:14 EKG completed in triage. Results shown to MD. tp1 Administered Medications: 07:20 Drug: predniSONE 60 mg Route: PO; tp1 09:12 Follow up: Response: No adverse reaction tp1 07:23 Drug: SOLU-Medrol (methylPrednisoLONE) 125 mg Route: IVP; Site: right antecubital; tp1 09:12 Follow up: Response: No adverse reaction tp1 07:26 Drug: NS 0.9% 1000 ml Route: IV; Rate: 1 bolus; Site: right antecubital; tp1 09:13 Follow up: IV Status: Completed infusion; IV Intake: 100ml tp1 07:29 Drug: Albuterol - atroVENT (ipratropium) (3:1) (2.5 mg - 0.5 mg) 3 ml Route: Nebulizer; tp1 09:13 Follow up: Response: Marked relief of symptoms tp1 07:58 Drug: Zithromax (azithromycin) 500 mg Route: PO; tp1 09:12 Follow up: Response: No adverse reaction tp1 Medication: 09:14 VIS not applicable for this client. tp1 Intake: 09:13 IV: 100ml; Total: 100ml. tp1 Outcome: 08:53 Discharge ordered by . andrew 09:15 Discharged to home ambulatory. tp1 09:15 Condition: good 09:15 Discharge instructions given to patient, Instructed on discharge instructions, follow up and referral plans. medication usage, Demonstrated understanding of instructions, follow-up care, medications, Prescriptions given X 4. 09:16 Patient left the ED. tp1 Signatures: Dispatcher [employer] EDMS Valerio, Na, RN Carlos A Byrne MD MD cha Garcia, Victoria, RN RN vg1 Rashmi Saravia tw5 Rashmi Kumar RN RN tp1
--- NOTE | 2021-12-11 09:24 | RAD REPORT ---
EXAM DESCRIPTION: Sarah Elmore And Cindy (2 Views)12/11/2021 8:41 am CLINICAL HISTORY: Cough COMPARISON: 2020 FINDINGS: The lungs appear clear of acute infiltrate. The heart is normal size IMPRESSION: No acute abnormalities displayed
[2021-12-11 09:32] VITALS: TEMP 98.1
[2021-12-11 09:51] VITALS: BP 126/65; O2SAT 98
--- NOTE | 2021-12-12 13:47 | EKG ---
Test Date: 2021-12-11 Test Time: 08:03:13 Dewer: KHAI MEASUREMENT RESULTS: Intervals: Rate: 93 WV: 140 QRSD: 108 QT: 358 QTc: 445 [place]: P: 51 WV: 140 QRS: 78 T: 39 INTERPRETIVE STATEMENTS: Normal sinus rhythm with sinus arrhythmia Normal ECG No previous ECG available for comparison Electronically Signed On 12-12-21 13:43:55 CDT by Javed Martinez
== END 2021-12-11 09:16 | disposition home or self-care (01) ==
LOC: ER 06:12
DX: J06.9 Acute upper respiratory infection, unspecified (principal); E66.9 Obesity, unspecified; Z68.42 Body mass index [BMI] 45.0-49.9, adult; J45.909 Unspecified asthma, uncomplicated
CPT/HCPCS: 36415; 71046; 80053; 83880; 84484; 85025; 85379; 87804; 87811; 93005; 94640; 96361; 96374; 99284; J2930; J7030; J7512

== ENCOUNTER 2022-12-30 17:07 | Emergency (ER) | payer SELFPAY ==
--- OUTSIDE RECORDS SUMMARY | 2022-12-30 17:12 | XMS REPORT | Continuity of Care Document ---
:1995 Author Organization [facility] t Address [address] [place] [address] Care Team Providers Name Role Phone Enrique MENDOZA, Nikia Coy Attending Clinician Cynthia August MD Attending Clinician Julius Lozano MD Attending Clinician Guanakito Suárez MD Attending Clinician GUANAKITO SUÁREZ Attending Clinician Unavailable CYNTHIA AUGUST Admitting Clinician Unavailable Problems Condition Condition Condition Status Onset Resolution Last Treating Co mments Source Name Details Category Date Date Treatment Clinician Date Obesity Obesity Disease Active 2020-[address] [facility] (BMI (BMI [facility] 30-[facility] 30-39.9) [facility] COVID-19 COVID-19 Disease [facility] Scrotal Scrotal Disease Active 2020-[address] [facility] abscess abscess 2-[facility] Allergies, [...] kg Systolic blood 2021-04-28 15:07:00 141 mm[Hg] [facility] Diastolic blood 2021-04-28 15:07:00 90 mm[Hg] [facility] Heart rate 2021-04-28 15:07:00 102 /min [facility] Body temperature 2021-04-28 15:07:00 36.28 [facility] Respiratory rate 2021-04-28 15:07:00 18 /min [facility] Oxygen saturation in 2021-04-28 15:07:00 97 /min [facility] Arterial blood by Medical Ce nttoy Pulse oximetry Body height 2021-04-25 13:00:00 172.7 cm [facility] Body weight 2021-04-25 13:00:00 158.759 kg [facility] BMI 2021-04-25 13:00:00 53.22 kg/m2 [facility] Procedures Procedure Date / Time Performed Performing Clinician Sourkarina e CREATININE 2021-04-28 03:23:00 Ariel Uribe [facility] CREATININE 2021-04-27 03:16:00 Ariel Uribe [facility] VANCOMYCIN LEVEL, TROUGH 2021-04-26 15:24:00 Cynthia August [facility] BASIC METABOLIC PANEL 2021-04-26 04:07:00 Cynthia August [facility] (7) [facility] HEPATIC FUNCTION PANEL 2021-04-26 04:07:00 Cynthia August [facility] HEMOGLOBIN A1C 2021-04-26 04:07:00 Cynthia August [facility] CBC W/PLT COUNT & AUTO 2021-04-26 04:07:00 Cynthia August CH, I [facility] CBC W/PLT COUNT & AUTO 2021-04-26 04:07:00 Cynthia August CH, I [facility] WOUND CULTURE + GRAM 2021-04-25 20:22:00 Lary Hendrix [facility] Plan of Care Planned Activity Planned Date Details Comments Source Future Scheduled 2023-01-05 Influenza Vaccine (#1) [facility] 00:00[facility]00 [code = Influenza Vaccine [facility] Center (#1)] Future Scheduled 2022-05-[address] [facility] 00:00:00 (12+) [code = DEPRESSION Med ica Center SCREENING (12+)] Future Scheduled 2021-05-[address] [facility] Test 00:00:00 (12+) [code = DEPRESSION Med ical Center SCREENING (12+)] Future Scheduled 2021-05-[address] [facility] Test 00:00:00 (12+) [code = DEPRESSION Med ical Center SCREENING (12+)] Future Scheduled 2021-01-05 INFLUENZA VACCINE (#1) [facility] 00:00:00 [code = INFLUENZA VACCINE Me dical Center (#1)] Future Scheduled 2021-01-05 INFLUENZA VACCINE (#1) [facility] 00:00:00 [code = INFLUENZA VACCINE Me dical Center (#1)] Future Scheduled 2013 Lipid panel (procedure) [facility] 00:00:00 [code = 22837678] Medical Ce nter Future Scheduled 2013 Lipid panel (procedure) [facility] 00:00:00 [code = 62412478] Medical Ce nter Future Scheduled 2013 Lipid panel (procedure) [facility] 00:00:00 [code = 69140620] Medical Ce nter Future Scheduled 2012 DTAP/TDAP/TD VACCINES ([address] [facility] 00:00:00 - Tdap) [code = Medical Cent er DTAP/TDAP/TD VACCINES (1 - Tdap)] Future Scheduled 2012 DTAP/TDAP/TD VACCINES ([address] [facility] Test 00:00:00 - Tdap) [code = Medical Cent er DTAP/TDAP/TD VACCINES (1 - Tdap)] Future Scheduled 2012 DTAP/TDAP/TD VACCINES ([address] [facility] 00:00:00 - Tdap) [code = Medical Cent er DTAP/TDAP/TD VACCINES (1 - Tdap)] Future Scheduled [...] HEPATITIS C Medical Center SCREENING] Future Scheduled [address] [facility] 00:00:00 virus screening Medical Cent er (procedure) [code = 222199155] Future Scheduled [address] [facility] Test 00:00:00 Counseling and Screening Med ical Center (12+) [code = Tobacco Cessation Counseling and Screening (12+)] Future Scheduled 1998 COVID-19 VACCINE (1) [facility] 00:00:00 [code = COVID-19 VACCINE Med ical Center (1)] Future Scheduled 1998 COVID-19 VACCINE (1) [facility] Test 00:00:00 [code = COVID-19 VACCINE Med ical Center (1)] Future Scheduled 1994-05-03 COVID-19 VACCINE (#1) [facility] 00:00[facility]00 [code = COVID-19 VACCINE Med ical Center (#1)] Encounters Start End Encounter Admission Attending Care Care Encounter Source Date/Time Date/Time Type Type Clinicians Facility Department ID 2022-12-10 2022-12-10 Outpatient [facility] [id number] [place] 16:29:36 16:29:36 [address] [place] 2022-11-12 2022-11-12 Outpatient [facility] [id number] Ralph 16:40:30 16:40:30 [id number] [place] 2022-05-03 2022-05-03 Outpatient [facility] [id number] [place] 15:59:10 15:59:10 [address] [place] 2021-04-25 2021-04-28 Hospital ER Nikia Nunez [facility] [id number] [facility] 11:36:00 16:55:00 Encounter Cynthia August [facility]. [facility], [facility] 2021-04-25 2021-04-28 Inpatient ER KAMINI, [facility] Urology [id number] [facility] 11:36:00 16:55:00 [facility] 2021-04-25 2021-04-25 Travel [facility] [id number] [facility]00 [facility] Results Test Description Test Time Test Comments Results Result Comments Source Wound culture + gram stain 2021-04-28 09:46:07 Test Item Value Reference Range Interpretation Comme nts Result (test code = 6463-4) No growth Gram Stain Result (test code = 1123) 1+ gram negative rods [facility] [id number] 09:46:07 Test Item Value Reference Range Interpretation Comments Result (test code = No growth 6463-4) Gram Stain Result (test 1+ gram negative rods code = 1123) [facility] + GRAM [id number] 09:46:07 Test Item Value Reference Range Interpretation Comments CULTURE (BEAKER) (test No growth code = 1095) GRAM STAIN RESULT 4+ WBCs (BEAKER) (test code = 1123) GRAM STAIN RESULT 2+ gram positive cocci (BEAKER) (test code = in pairs and clusters 55836) GRAM STAIN RESULT 1+ gram negative rods (BEAKER) (test code = 17072) [id number] 06:31:19 Test Item Value Reference Range Interpretation Comments Creatinine (test 0.74 mg/dL 0.57-1.25 Specimen sl ightly code = 2160-0) hemolyzed EGFR (test code = 127 mL/min/1.[place] [address]-7) NOT ACCURATE CREATININE CLEARANCE IN PREDICTING GLOMERULAR FILTRATION RATE . ESTIMATED GFR I S NOT APPLICABLE FOR DIALYSIS PATIEN TS. RICHIE (test code = Case Monitor ID - RICHIE) [facility] 06:31:19 Test Item Value Reference Range Interpretation Comments Creatinine (test 0.74 mg/dL 0.57-1.25 Specimen sl ightly code = 2160-0) hemolyzed EGFR (test code = 127 mL/min/1.[place] [address]-2) NOT ACCURATE CREATININE CLEARANCE IN PREDICTING GLOMERULAR FILTRATION RATE . ESTIMATED GFR I S NOT APPLICABLE FOR DIALYSIS PATIEN TS. RICHIE (test code = Case Monitor ID - RICHIE) [facility] 06:31:19 Test Item Value Reference Range Interpretation Comments CREATININE (BEAKER) 0.74 mg/dL 0.57-1.25 Specimen slightly (test code = 358) hemolyzed EGFR (BEAKER) (test 127 mL/min/1.73 ESTIM ATED GFR IS code = 1092) sq m NOT ACCURATE CREATININE CLEARANCE IN PREDICTING GLOMERULAR FILTRATION RATE . ESTIMATED GFR I S NOT APPLICABLE FOR DIALYSIS PATIEN TS. Case Monitor ID - ISHAN [id number] 04:01:02 Test Item Value Reference Range Interpretation Comments CREATININE (BEAKER) 0.77 mg/dL 0.57-1.25 Specimen slightly (test code = 358) hemolyzed EGFR (BEAKER) (test 121 mL/min/1.73 ESTIM ATED GFR IS code = 1092) sq m NOT ACCURATE CREATININE CLEARANCE IN PREDICTING GLOMERULAR FILTRATION RATE . ESTIMATED GFR I S NOT APPLICABLE FOR DIALYSIS PATIEN TS. Case Monitor ID - PAOLA LVancomycin level, [id number] 15:54:18 Test Item Value Reference Range Interpretation Comments Vancomycin Tr (test code = 14.8 ug/mL 10.0-20.0 4092-3) RCIHIE (test code = RICHIE) Case Monitor ID Lu Dickson Lab Interpretation (test Normal code = 45963-9) [facility], [id number] 15:54:18 Test Item Value Reference Range Interpretation Comments Vancomycin Tr (test code = 14.8 ug/mL 10.0-20.0 4092-3) RICHIE (test code = RICHIE) Case Monitor ID - ISHAN Dickson Lab Interpretation (test Normal code = 83046-4) [facility]EL, [id number] 15:54:18 Test Item Value Reference Range Interpretation Comments VANCOMYCIN TROUGH (BEAKER) (test 14.8 ug/mL 10.0-20.0 code = 522) Case Monitor ID - ISHAN MHemoglobin [id number] 08:41:59 Test Item Value Reference Range Interpretation Comments Hemoglobin A1C (test code = 4548-4) 6.4 % 4.3-6.1 H Lab Interpretation (test code = Abnormal 42820-6) [facility] [id number] 08:41:59 Test Item Value Reference Range Interpretation Comments Hemoglobin A1C (test code = 4548-4) 6.4 % 4.3-6.1 H Lab Interpretation (test code = Abnormal 52876-5) [facility] [id number] 08:41:59 Test Item Value Reference Range Interpretation Comments HEMOGLOBIN A1C (ANABELL) (test code = 6.4 % 4.3-6.1 H 368) Hepatic function [id number] 05:01:29 Test Item Value Reference Range Interpretation Comments Protein, Total (test 6.6 See_Comment [Autom ated code = 2885-2) message] The system which generated this result transmit candace reference range : 6.0 - 8.3 gm/dL . The reference range was not u sed to interpret th is result as normal/abnormal . Albumin (test code = 3.5 g/dL 3.5-5.0 93402-8) Total Bilirubin (test 0.8 mg/dL 0.2-1.2 code = 1974-) Bilirubin, Direct 0.3 mg/dL 0.1-0.5 (test code = 1967-) Alkaline Phosphatase 60 U/L 40-150 (test code = 6768-6) AST (test code = 12 U/L 192-8) ALT (test code = 29 U/L 1742-6) RICHIE (test code = RICHIE) Case Monitor ID - ISHAN M Lab Interpretation Normal (test code = 50119-2) [facility] [id number] 05:01:29 Test Item Value Reference Range Interpretation Comments Protein, Total (test 6.6 See_Comment [Autom ated code = 2885-2) message] The system which generated this result transmit candace reference range : 6.0 - 8.3 gm/dL . The reference range was not u sed to interpret th is result as normal/abnormal . Albumin (test code = 3.5 g/dL 3.5-5.0 62860-3) Total Bilirubin (test 0.8 mg/dL 0.2-1.2 code = 1974-) Bilirubin, Direct 0.3 mg/dL 0.1-0.5 (test code = 1967-) Alkaline Phosphatase 60 U/L 40-150 (test code = 6768-6) AST (test code = 12 U/L 5-34 1920-8) ALT (test code = 29 U/L 1742-6) RICHIE (test code = RICHIE) Case Monitor ID - ISHAN M Lab Interpretation Normal (test code = 24768-7) [facility]CTION [id number] 05:01:29 Test Item Value Reference Range Interpretation [...] (test code = 29 U/L 6-55 347) Case Monitor EVA MILLERasic metabolic [id number] 05:01:23 Test Item Value Reference Range Interpretation Comments Sodium (test code = 138 meq/L 488-492 6047-2) Potassium (test code = 3.5 meq/L 3.5-5.1 2823-3) Chloride (test code = 106 meq/L 98-107 2075-0) CO2 (test code = 23 meq/L 22-29 2028-9) BUN (test code = 7 mg/dL 7-21 3094-0) Creatinine (test code 0.75 mg/dL 0.57-1.25 = 2160-0) Glucose (test code = 162 mg/dL 70-105 H 2345-7) Calcium (test code = 8.6 mg/dL 8.4-10.2 96720-4) EGFR (test code = 125 mL/min/1.[place] [address]-9) NOT ACCURATE CREATININE CLEARANCE IN PREDICTING GLOMERULAR FILTRATION RATE . ESTIMATED GFR I S NOT APPLICABLE FOR DIALYSIS PATIENTS. RICHIE (test code = RICHIE) Case Monitor EVA Dickson Lab Interpretation Abnormal (test code = 54801-9) [facility] [id number] 05:01:23 Test Item Value Reference Range Interpretation Comments Sodium (test code = 138 meq/L 593-072 4004-2) Potassium (test code = 3.5 meq/L 3.5-5.1 2823-3) Chloride (test code = 106 meq/L 98-107 2075-0) CO2 (test code = 23 meq/L 22-29 2028-9) BUN (test code = 7 mg/dL 7-21 3094-0) Creatinine (test code 0.75 mg/dL 0.57-1.25 = 2160-0) Glucose (test code = 162 mg/dL 70-105 H 2345-7) Calcium (test code = 8.6 mg/dL 8.4-10.2 15150-9) EGFR (test code = 125 mL/min/1.[place] [address]-1) NOT ACCURATE CREATININE CLEARANCE IN PREDICTING GLOMERULAR FILTRATION RATE . ESTIMATED GFR I S NOT APPLICABLE FOR DIALYSIS PATIENTS. RICHIE (test code = RICHIE) Case Monitor ID - ISHAN Randolph Lab Interpretation Abnormal (test code = 95576-1) [facility] [id number] 05:01:23 Test Item Value Reference Range Interpretation Comments SODIUM (BEAKER) 138 meq/L 136-145 (test code = 381) POTASSIUM (BEAKER) 3.5 meq/L 3.5-5.1 (test code = 379) CHLORIDE (BEAKER) 106 meq/L 98-107 (test code = 382) CO2 (BEAKER) (test 23 meq/L - code = 355) BLOOD UREA NITROGEN 7 mg/dL 7-21 (BEAKER) (test code = 354) CREATININE (BEAKER) [...] S NOT APPLICABLE FOR DIALYSIS PATIEN TS. Case Monitor ID - ISHAN [facility] with platelet count + automated [id number] 04:43:19 Test Item Value Reference Range Interpretation Comments WBC (test code = 6690-2) 9.6 See_Comment [A utomated message] The system [employer] generated this result transmitted ref erence range: 3.5 - 10 .5 K/L. The refe rence range was not u sed to interpret this result as normal/abnor mal. RBC (test code = 789-8) 5.04 See_Comment [Au tomated message] The system [employer] generated this result transmitted ref erence range: 4.63 - 6 .08 M/L. The refe rence range was not u sed to interpret this result as normal/abnor mal. MCHC (test code = 786-4) 34.7 See_Comment [A utomated message] The system [employer] generated this result transmitted ref erence range: [...] See_Comment [Aut omated message] 777-3) The system [employer] generated this result transmitted ref erence range: 150 - 45 0 K/CU MM. The referen ce range was not u sed to interpret this result as normal/abnor mal. MPV (test code = 11.7 fL 9.4-12.4 91010-7) nRBC (test code = 413) 0 See_Comment [Aut omated message] The system [employer] generated this result transmitted ref erence range: [...] H [Aut omated message] 670) The system [employer] generated this result transmitted ref erence range: 1.78 - 5 .38 K/L. The refe rence range was not u sed to interpret this result as normal/abnor mal. # Lymphs (test code = 1.74 See_Comment [Auto mated message] 414) The system [employer] generated this result transmitted ref erence range: 1.32 - 3 .57 K/L. The refe rence range was not u sed to interpret this result as normal/abnor mal. # Monos (test code = 0.47 See_Comment [Autom ated message] 415) The system [employer] generated this result transmitted ref erence range: 0.30 - 0 .82 K/L. The refe rence range was not u sed to interpret this result as normal/abnor mal. # Eos (test code = 416) 0.21 See_Comment [Au tomated message] The system [employer] generated this result transmitted ref erence range: 0.04 - 0 .54 K/L. The refe rence range was not u sed to interpret this result as normal/abnor mal. # Baso (test code = 417) 0.03 See_Comment [A utomated message] The system [employer] generated this result transmitted ref erence range: 0.01 - 0 .08 K/L. The refe rence range was not u sed to interpret this result as normal/abnor mal. Immature 1 % 0-1 Granulocytes-Relative (test code = 2801) Lab Interpretation (test Abnormal code = 47383-0) [facility] with platelet count + automated [id number] 04:43:19 Test Item Value Reference Range Interpretation Comments WBC (test code = 6690-2) 9.6 See_Comment [A utomated message] The system [employer] generated this result transmitted ref erence range: 3.5 - 10 .5 K/L. The refe rence range was not u sed to interpret this result as normal/abnor mal. RBC (test code = 789-8) 5.04 See_Comment [Au tomated message] The system [employer] generated this result transmitted ref erence range: 4.63 - 6 .08 M/L. The refe rence range was not u sed to interpret this result as normal/abnor mal. MCHC (test code = 786-4) 34.7 See_Comment [A utomated message] The system [employer] generated this result transmitted ref erence range: [...] See_Comment [Aut omated message] 777-3) The system [employer] generated this result transmitted ref erence range: 150 - 45 0 K/CU MM. The referen ce range was not u sed to interpret this result as normal/abnor mal. MPV (test code = 11.7 fL 9.4-12.4 53028-6) nRBC (test code = 413) 0 See_Comment [Aut omated message] The system [employer] generated this result transmitted ref erence range: [...] H [Aut omated message] 670) The system [employer] generated this result transmitted ref erence range: 1.78 - 5 .38 K/L. The refe rence range was not u sed to interpret this result as normal/abnor mal. # Lymphs (test code = 1.74 See_Comment [Auto mated message] 414) The system [employer] generated this result transmitted ref erence range: 1.32 - 3 .57 K/L. The refe rence range was not u sed to interpret this result as normal/abnor mal. # Monos (test code = 0.47 See_Comment [Autom ated message] 415) The system [employer] generated this result transmitted ref erence range: 0.30 - 0 .82 K/L. The refe rence range was not u sed to interpret this result as normal/abnor mal. # Eos (test code = 416) 0.21 See_Comment [Au tomated message] The system [employer] generated this result transmitted ref erence range: 0.04 - 0 .54 K/L. The refe rence range was not u sed to interpret this result as normal/abnor mal. # Baso (test code = 417) 0.03 See_Comment [A utomated message] The system [employer] generated this result transmitted ref erence range: 0.01 - 0 .08 K/L. The refe rence range was not u sed to interpret this result as normal/abnor mal. Immature 1 % 0-1 Granulocytes-Relative (test code = 2801) Lab Interpretation (test Abnormal code = 57918-4) [facility] W/PLT COUNT & AUTO [id number] 04:43:19 Test Item Value Reference Range Interpretation [...] % 0-1 PERCENT (BEAKER) (test code = 9529)
--- NOTE | 2022-12-30 17:26 | ER ---
Nurse's Notes [facility] Name: Abdelrahman Chavez Age: 27 yrs Sex: Male : 1995 Arrival Date: 12/30/2022 Time: 17:07 Bed IW1 Private MD: Diagnosis: Acute suppurative otitis media with spontaneous rupture of ear drum, left ear;Unspecified otitis externa, left ear Presentation: 12/30 17:14 Chief complaint: Patient states: L ear pain for 2 days. No known fever. Coronavirus ll1 screen: Vaccine status: Patient reports being unvaccinated. Client denies travel out of the [place] in the last 14 days. At this time, the client does not indicate any symptoms associated with coronavirus-19. Ebola Screen: Patient denies travel to an Ebola-affected area in the 21 days before illness onset. Initial Sepsis Screen: Does the patient meet any 2 criteria? No. Patient's initial sepsis screen is negative. Does the patient have a suspected source of infection? Yes: Other: ear. Risk Assessment: Do you want to hurt yourself or someone else? Patient reports no desire to harm self or others. Onset of symptoms was December 28, 2022. 17:14 Method Of Arrival: Ambulatory ll1 17:14 Acuity: NEAL 4 ll1 Historical: - Allergies: 17:15 No Known Allergies; ll1 - PMHx: 17:15 Depression; Asthma; Anxiety; ll1 - PSHx: 17:15 None; ll1 - Immunization history:: Client reports having NOT received the Covid vaccine. - Social history:: Smoking status: Patient denies any tobacco usage or history of. Vital Signs: 17:14 BP 140 / 91; Pulse 117; Resp 18; Temp 98.4; Pulse Ox 97% ; Weight 158.76 kg; Height 5 ll1 ft. 10 in. ; Pain 8/10; 17:14 Body Mass Index 50.22 (158.76 kg, 177.8 cm) ll1 17:14 Pain Scale: Adult ll1 ED Course: 17:09 Patient arrived in ED. mr 17:10 [facility] snw 17:10 Carlos A Noble MD is Attending Physician. snw 17:15 Triage completed. ll1 17:16 Arm band placed on. ll1 Administered Medications: 17:44 Drug: Rocephin (cefTRIAXone) IM 1 grams Route: IM; Site: right deltoid; 1 17:44 Follow up: Response: Medication administered at discharge. ll1 17:44 Drug: Ibuprofen PO 600 mg Route: PO; 1 17:44 Follow up: Response: Medication administered at discharge. 1 Outcome: 17:25 Discharge ordered by . magaly 17:44 Discharged to home ambulatory. 1 17:44 Condition: stable 17:44 Discharge instructions given to patient, Instructed on discharge instructions, follow up and referral plans. medication usage, Demonstrated understanding of instructions, follow-up care, medications, Prescriptions given X 1. 17:45 Patient left the ED. 1 Signatures: Rosette Landers, KAYLEENC [employer]-Eugenia Jessica mr Taqueria Luo, RN RN 1
--- NOTE | 2022-12-30 17:26 | EDPHYS ---
Physician Documentation [facility] Name: Abdelrahman Chavez Age: 27 yrs Sex: Male : 1995 Arrival Date: 12/30/2022 Time: 17:07 Bed IW1 Private MD: ED Physician Carlos A Noble HPI: 12/30 17:30 This 27 yrs old Male presents to ER via Ambulatory with complaints of Ear Pain.snw 17:30 The patient presents with a fullness, pain, swelling, tenderness. The complaints affect snw the left ear. Onset: The symptoms/episode began/occurred acutely. Associated signs and symptoms: Pertinent positives: sinus trouble. Severity of symptoms: At their worst the symptoms were moderate. The patient has not experienced similar symptoms in the past. It is unknown whether or not the patient has recently seen a physician. Historical: - Allergies: 17:15 No Known Allergies; ll1 - PMHx: 17:15 Depression; Asthma; Anxiety; ll1 - PSHx: 17:15 None; ll1 - Immunization history:: Client reports having NOT received the Covid vaccine. - Social history:: Smoking status: Patient denies any tobacco usage or history of. ROS: 17:28 Constitutional: Negative for fever, chills, and weight loss, Eyes: Negative for injury, snw pain, redness, and discharge, ENT: Negative for injury, positive for pain and discharge, Neck: Negative for injury, pain, and swelling, Cardiovascular: Negative for chest pain, palpitations, and edema, Respiratory: Negative for shortness of breath, cough, wheezing, and pleuritic chest pain, Abdomen/GI: Negative for abdominal pain, nausea, vomiting, diarrhea, and constipation, Back: Negative for injury and pain, : Negative for injury, bleeding, discharge, and swelling, MS/Extremity: Negative for injury and deformity, Skin: Negative for injury, rash, and discoloration, Neuro: Negative for headache, weakness, numbness, tingling, and seizure, Psych: Negative for depression, anxiety, suicide ideation, homicidal ideation, and hallucinations. Exam: 17:28 Constitutional: This is a well developed, well nourished patient who is awake, alert, snw and in no acute distress. Head/Face: Normocephalic, atraumatic. Eyes: Pupils equal round and reactive to light, extra-ocular motions intact. Lids and lashes normal. Conjunctiva and sclera are non-icteric and not injected. Cornea within normal limits. Periorbital areas with no swelling, redness, or edema. Neck: Trachea midline, no thyromegaly or masses palpated, and no cervical lymphadenopathy. Supple, full range of motion without nuchal rigidity, or vertebral point tenderness. No Meningismus. Chest/axilla: Normal chest wall appearance and motion. Nontender with no deformity. No lesions are appreciated. Cardiovascular: Regular rate and rhythm with a normal S1 and S2. No gallops, murmurs, or rubs. Normal PMI, no JVD. No pulse deficits. Respiratory: Lungs have equal breath sounds bilaterally, clear to auscultation and percussion. No rales, rhonchi or wheezes noted. No increased work of breathing, no retractions or nasal flaring. Abdomen/GI: Soft, non-tender, with normal bowel sounds. No distension or tympany. No guarding or rebound. No evidence of tenderness throughout. Back: No spinal tenderness. No costovertebral tenderness. Full range of motion. Skin: Warm, dry with normal turgor. Normal color with no rashes, no lesions, and no evidence of cellulitis. MS/ Extremity: Pulses equal, no cyanosis. Neurovascular intact. Full, normal range of motion. Neuro: Awake and alert, GCS 15, oriented to person, place, time, and situation. Cranial nerves II-XII grossly intact. Motor strength 5/5 in all extremities. Sensory grossly intact. Cerebellar exam normal. Normal gait. Psych: Awake, alert, with orientation to person, place and time. Behavior, mood, and affect are within normal limits. 17:28 ENT: External ear(s): pain with movement, Ear canal(s): purulent discharge, that is minimal, that is moderate, in the left canal, TM's: not visable, because of discharge, Examination of the other ear shows no obvious abnormality, Mouth: is normal, Posterior pharynx: erythema, that is mild, Voice: is normal. Vital Signs: 17:14 BP 140 / 91; Pulse 117; Resp 18; Temp 98.4; Pulse Ox 97% ; Weight 158.76 kg; Height 5 ll1 ft. 10 in. ; Pain 8/10; 17:14 Body Mass Index 50.22 (158.76 kg, 177.8 cm) ll1 17:14 Pain Scale: Adult ll1 MDM: 17:25 Patient medically screened. snw 17:29 Differential diagnosis: otitis media, otitis externa. Data reviewed: vital signs, snw nurses notes. I considered the following discharge prescriptions or medication management in the emergency department Medications were administered in the Emergency Department. See MAR. Counseling: I had a detailed discussion with the patient and/or guardian regarding the historical points, exam findings, and any diagnostic results supporting the discharge/admit diagnosis, the presence of at least one elevated blood pressure reading (>120/80) during this emergency department visit, the need for outpatient follow up, for definitive care, to return to the emergency department if symptoms worsen or persist or if there are any questions or concerns that arise at home. Special discussion: I have referred the patient to see his PCP for further evaluation of high blood pressure. Based on the history and exam findings, there is no indication for further emergent testing or inpatient evaluation. I discussed with the patient/guardian the need to see the ENT specialist for further evaluation of the symptoms. I discussed with the patient/guardian the need to see the primary care provider for further evaluation of the symptoms. Administered Medications: 17:44 Drug: Rocephin (cefTRIAXone) IM 1 grams Route: IM; Site: right deltoid; ll1 17:44 Follow up: Response: Medication administered at discharge. ll1 17:44 Drug: Ibuprofen PO 600 mg Route: PO; ll1 17:44 Follow up: Response: Medication administered at discharge. ll1 Disposition Summary: 12/30/22 17:25 Discharge Ordered Location: Home snw Condition: Stable snw Diagnosis - Acute suppurative otitis media with spontaneous rupture of ear drum, left ear snw - Unspecified otitis externa, left ear snw Followup: snw - With: Emergency Department - When: As needed - Reason: Worsening of condition Followup: snw - With: Private Physician - When: 2 - 3 days - Reason: Recheck today's complaints, Continuance of care, Re-evaluation by your physician Discharge Instructions: - Discharge Summary Sheet snw - Otitis Media, Adult snw - Otitis Externa snw Forms: - Medication Reconciliation Form snw - Thank You Letter snw - Antibiotic Education snw - Prescription Opioid Use snw - Patient Portal Instructions snw - Leadership Thank You Letter snw Prescriptions: - Maxitrol 3.5mg/mL-10,000 unit/mL-0.1 % Ophthalmic drops, suspension - instill 2 drop by OTIC route every 8 hours for 7 days Instill in left ear canal snw TID x 7 days; 1 Unspecified; Refills: 0, Product Selection Permitted - Augmentin 875-125 mg Oral Tablet - take 1 tablet by ORAL route every 12 hours for 10 days; 20 tablet; Refills: 0, snw Product Selection Permitted Signatures: Rosette Landers, BERNIE-C [employer] RN RN ll1
[2022-12-30] MEDS ORDERED: LIDOCAINE 1% MPF 2 ML AMPULE ONE (17:43)
[2022-12-30] MEDS ORDERED: IBUPROFEN 200 MG TAB PO ONE (17:43)
[2022-12-30] MEDS ORDERED: CEFTRIAXONE 1000 MG/VIAL ONE (17:43)
[2022-12-30 17:50] VITALS: BP 140/91; TEMP 98.4; O2SAT 97
== END 2022-12-30 17:45 | disposition home or self-care (01) ==
LOC: ER 17:07
DX: H66.012 Acute suppurative otitis media with spontaneous rupture of ear drum, left ear (principal); H60.92 Unspecified otitis externa, left ear
CPT/HCPCS: 96372; 99284; J0696

== ENCOUNTER 2023-03-21 19:35 | Emergency (ER) | payer SELFPAY ==
--- OUTSIDE RECORDS SUMMARY | 2023-03-21 19:41 | XMS REPORT | Continuity of Care Document ---
:1995 Author Organization [facility] t Address 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20 [facility] 00 [place] Obesity Obesity Disease Active 2020-05 [facility] (BMI (BMI 2-20 [facility] 30-39.9) 30-39.9) [...] Start Date Stop Date Quantity Comments Source Sexual orientation [facility] Sex Assigned At [birth year] [facility] 00:00:00 [facility]00 [facility] Medications Ordered Filled [...] 160mg{t Q.5D Take [address] [facility] [address] azole-trime -05-06 rimetho tablet Tiffanie kes thoprim 00:00: 23:59 prim} (160 mg of Me dical (BACTRIM 00 :00 trimethopr Cente r DS) 800-160 im total) mg per by mouth 2 tablet (two) times daily for 15 doses. sulfamethox 2020-05 No 160mg{t Q.5D Take [address] azole-trime -05-06 rimetho tablet Tiffanie kes thoprim 00:00: 23:59 [...] kg Systolic blood 2021-04-28 15:07:00 141 mm[Hg] [facility] Diastolic blood 2021-04-28 15:07:00 90 mm[Hg] [facility] S t [facility] Heart rate 2021-04-28 15:07:00 102 /min [facility] Body temperature 2021-04-28 15:07:[address] [facility] Respiratory rate 2021-04-28 15:07:00 18 /min [facility] Oxygen saturation in 2021-04-28 15:07:00 97 /min [facility] Arterial blood by Medical Ce nter Pulse oximetry Body height 2021-04-25 13:00:00 172.7 cm [facility] Body weight 2021-04-25 13:00:00 158.759 kg [facility] BMI 2021-04-25 13:00:00 53.22 kg/m2 [facility] Procedures Procedure Date / Time Performed Performing Clinician Sourkarina e CREATININE 2021-04-28 03:23:[address] [facility] CREATININE 2021-04-27 03:16:00 [address] [facility] VANCOMYCIN LEVEL, TROUGH 2021-04-26 15:24:00 [address] [facility] BASIC METABOLIC PANEL 2021-04-26 04:07:00 Cynthia August [facility] ([address] [place] [address] HEPATIC FUNCTION PANEL 2021-04-26 04:07:00 Cynthia August [facility] HEMOGLOBIN A1C 2021-04-26 04:07:00 Cynthia August [facility] CBC W/PLT COUNT & AUTO 2021-04-26 04:07:00 Cynthia August CH, I [facility] CBC W/PLT COUNT & AUTO 2021-04-26 04:07:00 Cynthia August CH, I [facility] WOUND CULTURE + GRAM 2021-04-25 20:22:00 Lary Hendrix [facility] Plan of Care Planned Activity Planned Date Details Comments Source Future Scheduled 2023-01-05 Influenza Vaccine (#1) [facility] Test 00:00:00 [code = Influenza Vaccine [facility] (#1)] Future Scheduled 2023-01-05 Influenza Vaccine (#1) [facility] Test 00:00:00 [code = Influenza Vaccine Me dical Center (#1)] Future Scheduled 2022-05-[address] [facility] Test 00:00:00 (12+) [code = DEPRESSION Med ical Center SCREENING (12+)] Future Scheduled 2022-05-[address] [facility] Test 00:00:00 [code = 64262736] Medical Ce nter Future Scheduled 2013 Lipid panel (procedure) [facility] Test 00:00:00 [code = 31665791] Medical Ce nter Future Scheduled 2013 Lipid panel (procedure) [facility] Test 00:00:00 [code = 88779251] Medical Ce nter Future Scheduled 2013 Lipid panel (procedure) [facility] Test 00:00:00 [code = 48242571] Medical Ce nter Future Scheduled 2012 DTAP/TDAP/TD [...] screening Medical Cent er (procedure) [code = 015655651] Future Scheduled [address] Human immunodeficiency [facility] Test 00:00:00 virus screening Medical Cent er (procedure) [code = 685254731] Future Scheduled [address] [facility] Test 00:00:00 Counseling and Screening Med ical Center (12+) [code = Tobacco Cessation Counseling and Screening (12+)] Future Scheduled [address] [...] = COVID-19 VACCINE Med ical Center (#1)] Future Scheduled 1994-05-03 COVID-19 VACCINE (#1) CH I [facility] Test 00:00:00 [code = COVID-19 VACCINE Med [facility] (#1)] Encounters Start End Encounter Admission Attending Care Care Encounter Source Date/Time Date/Time Type Type Clinicians Facility Department ID 2023-03-02 2023-03-02 Outpatient [facility] [id number] [facility] 15:35:12 15:35:12 [facility] 2023-02-20 2023-02-20 Outpatient SFA SFA [id number] [facility] 13:16:25 13:16:25 [facility] [place] 2023-02-02 2023-02-02 Outpatient SFA SFA [id number] [facility] 15:30:21 15:30:21 [facility] 2023-02-01 2023-02-01 Outpatient SFA SFA [id number] [facility] 13:55:25 13:55:25 [facility] 2022-12-10 2022-12-10 Outpatient SFA SFA [id number] [facility] 16:29:36 16:29:36 [facility] 2022-11-12 2022-11-12 Outpatient SFA SFA [id number] [id number] [facility] 16:40:30 16:40:30 0[facility] 2022-05-03 2022-05-03 Outpatient SFA SFA [id number] [facility] 15:59:10 15:59:10 [facility] 2021-04-25 2021-04-28 Hospital ER Lorrie Nunezsalty Coy [facility] [id number] [address] 11:36:00 16:55:00 Encounter Cynthia August Tit[place]ola R. Medical K[facility], [facility] 2021-04-25 2021-04-28 Inpatient ER KAMINI, [facility] Urology [id number] [facility] 11:36:00 16:55:00 [facility] 2021-04-25 2021-04-[address] [facility] [id number] [facility] Results Test Description Test Time Test Comments Results Result Comments Source Wound culture + gram stain 2021-04-28 09:46:07 Test Item Value Reference Range Interpretation Comme nts Result (test code = 6463-4) No growth Gram Stain Result (test code = 1123) 1+ gram negative rods [facility] + gram [id number] 09:46:07 Test Item Value Reference Range Interpretation Comments Result (test code = No growth 6463-4) Gram Stain Result (test 1+ gram negative rods code = 1123) [facility] [id number] 09:46:07 Test Item Value Reference Range Interpretation Comments CULTURE (BEAKER) (test No growth code = 1095) GRAM STAIN RESULT 4+ WBCs (BEAKER) (test code = 1123) GRAM STAIN RESULT 2+ gram positive cocci (BEAKER) (test code = in pairs and clusters 79968) GRAM STAIN RESULT 1+ gram negative rods (BEAKER) (test code = 79628) [id number] 06:31:19 Test Item Value Reference Range Interpretation Comments Creatinine (test 0.74 mg/dL 0.57-1.25 Specimen sl ightly code = 2160-0) hemolyzed EGFR (test code = 127 mL/min/1.[place] [address]-2) NOT ACCURATE CREATININE CLEARANCE IN PREDICTING GLOMERULAR FILTRATION RATE . ESTIMATED GFR I S NOT APPLICABLE FOR DIALYSIS PATIEN TS. RICHIE (test code = Product Distribution Specialist ID - RICHIE) [facility] Test Item Value Reference Range Interpretation Comments Creatinine (test 0.74 mg/dL 0.57-1.25 Specimen sl ightly code = 2160-0) hemolyzed EGFR (test code = 127 mL/min/1.[place] [address]-0) NOT ACCURATE CREATININE CLEARANCE IN PREDICTING GLOMERULAR FILTRATION RATE . ESTIMATED GFR I S NOT APPLICABLE FOR DIALYSIS PATIEN TS. RICHIE (test code = Product Distribution Specialist ID - RICHIE) [facility] 06:31[facility] Test Item Value Reference Range Interpretation Comments CREATININE (BEAKER) 0.74 mg/dL 0.57-1.25 Specimen slightly (test code = 358) hemolyzed EGFR (BEAKER) (test 127 mL/min/1.73 ESTIM ATED GFR IS code = 1092) sq m NOT ACCURATE CREATININE CLEARANCE IN PREDICTING GLOMERULAR FILTRATION RATE . ESTIMATED GFR I S NOT APPLICABLE FOR DIALYSIS PATIEN TS. Product Distribution Specialist ID Lu OLMSTEAD [id number] 04:01:02 Test Item Value Reference Range Interpretation Comments CREATININE (BEAKER) 0.77 mg/dL 0.57-1.25 Specimen slightly (test code = 358) hemolyzed EGFR (BEAKER) (test 121 mL/min/1.73 ESTIM ATED GFR IS code = 1092) sq m NOT ACCURATE CREATININE CLEARANCE IN PREDICTING GLOMERULAR FILTRATION RATE . ESTIMATED GFR I S NOT APPLICABLE FOR DIALYSIS PATIEN TS. Product Distribution Specialist ID Lu GUEVARA LVancomycin level, [id number] 15:54:18 Test Item Value Reference Range Interpretation Comments Vancomycin Tr (test code = 14.8 ug/mL 10.0-20.0 4092-3) RICHIE (test code = RICHIE) Product Distribution Specialist EVA Dickson Lab Interpretation (test Normal code = 52741-7) [facility] level, [id number] 15:54:18 Test Item Value Reference Range Interpretation Comments Vancomycin Tr (test code = 14.8 ug/mL 10.0-20.0 4092-3) RICHIE (test code = RICHIE) Product Distribution Specialist EVA Dickson Lab Interpretation (test Normal code = 53516-0) [facility] JosephVANCOMYCIN LEVEL, [id number] 15:54:18 Test Item Value Reference Range Interpretation Comments VANCOMYCIN TROUGH (BEAKER) (test 14.8 ug/mL 10.0-20.0 code = 522) Product Distribution Specialist ID Lu OLMSTEAD MHemoglobin [id number] 08:41:59 Test Item Value Reference Range Interpretation Comments Hemoglobin A1C (test code = 4548-4) 6.4 % 4.3-6.1 H Lab Interpretation (test code = Abnormal 65136-0) [facility]emoglobin [id number] 08:41:59 Test Item Value Reference Range Interpretation Comments Hemoglobin A1C (test code = 4548-4) 6.4 % 4.3-6.1 H Lab Interpretation (test code = Abnormal 53368-4) [facility]HEMOGLOBIN [id number] 08:41:59 Test Item Value Reference Range Interpretation Comments HEMOGLOBIN A1C (BEAKER) (test code = 6.4 % 4.3-6.1 H 368) Hepatic function [id number] 05:01:29 Test Item Value Reference Range Interpretation Comments Protein, Total (test 6.6 See_Comment [Autom ated code = 2885-2) message] The system which generated this result transmit candace reference range : 6.0 - 8.3 gm/dL . The reference range was not u sed to interpret th is result as normal/abnormal . Albumin (test code = 3.5 g/dL 3.5-5.0 71852-2) Total Bilirubin (test 0.8 mg/dL 0.2-1.2 code = 1974-06) Bilirubin, Direct 0.3 mg/dL 0.1-0.5 (test code = 1967-11) Alkaline Phosphatase 60 U/L 40-150 (test code = 6768-6) AST (test code = 12 U/L -34 1920-8) ALT (test code = 29 U/L 1742-6) RICHIE (test code = RICHIE) Product Distribution Specialist ID - ISHAN M Lab Interpretation Normal (test code = 05782-1) [facility] function [id number] 05:01:29 Test Item Value Reference Range Interpretation Comments Protein, Total (test 6.6 See_Comment [Autom ated code = 2885-2) message] The system which generated this result transmit candace reference range : 6.0 - 8.3 gm/dL . The reference range was not u sed to interpret th is result as normal/abnormal . Albumin (test code = 3.5 g/dL 3.5-5.0 80639-4) Total Bilirubin (test 0.8 mg/dL 0.2-1.2 code = 1974-06) Bilirubin, Direct 0.3 mg/dL 0.1-0.5 (test code = 1967-) Alkaline Phosphatase 60 U/L 40-150 (test code = 6768-6) AST (test code = 12 U/L 5-34 1920-8) ALT (test code = 29 U/L 6-55 1742-6) RICHIE (test code = RICHIE) Product Distribution Specialist ID - ISHAN M Lab Interpretation Normal (test code = 55651-3) [facility]ATIC FUNCTION [id number] 05:01:29 Test Item Value Reference Range Interpretation [...] (test code = 29 U/L 6-55 347) Product Distribution Specialist EVA MILLERasic metabolic [id number] 05:01:23 Test Item Value Reference Range Interpretation Comments Sodium (test code = 138 meq/L 161-786 0136-2) Potassium (test code = 3.5 meq/L 3.5-5.1 2823-3) Chloride (test code = 106 meq/L 98-107 2075-0) CO2 (test code = 23 meq/L 22-29 2028-9) BUN (test code = 7 mg/dL 7-21 3094-0) Creatinine (test code 0.75 mg/dL 0.57-1.25 = 2160-0) Glucose (test code = 162 mg/dL 70-105 H 2345-7) Calcium (test code = 8.6 mg/dL 8.4-10.2 16176-4) EGFR (test code = 125 mL/min/1.[place] [address]-1) NOT ACCURATE CREATININE CLEARANCE IN PREDICTING GLOMERULAR FILTRATION RATE . ESTIMATED GFR I S NOT APPLICABLE FOR DIALYSIS PATIENTS. RICHIE (test code = RICHIE) Product Distribution Specialist EVA Dickson Lab Interpretation Abnormal (test code = 06078-2) [facility] metabolic [id number] 05:01:23 Test Item Value Reference Range Interpretation Comments Sodium (test code = 138 meq/L 731-367 9720-2) Potassium (test code = 3.5 meq/L 3.5-5.1 2823-3) Chloride (test code = 106 meq/L 98-107 2075-0) CO2 (test code = 23 meq/L 22-29 2028-9) BUN (test code = 7 mg/dL 7-21 3094-0) Creatinine (test code 0.75 mg/dL 0.57-1.25 = 2160-0) Glucose (test code = 162 mg/dL 70-105 H 2345-7) Calcium (test code = 8.6 mg/dL 8.4-10.2 69577-8) EGFR (test code = 125 mL/min/1.[place] [address]-6) NOT ACCURATE CREATININE CLEARANCE IN PREDICTING GLOMERULAR FILTRATION RATE . ESTIMATED GFR I S NOT APPLICABLE FOR DIALYSIS PATIENTS. RICHIE (test code = RICHIE) Product Distribution Specialist ID - ISHAN M Lab Interpretation Abnormal (test code = 09745-2) [facility]I METABOLIC [id number] 05:01:23 Test Item Value Reference Range Interpretation [...] S NOT APPLICABLE FOR DIALYSIS PATIEN TS. Product Distribution Specialist ID - ISHAN [facility] with platelet count + automated [id number] 04:43:19 Test Item Value Reference Range Interpretation Comments WBC (test code = 6690-2) 9.6 See_Comment [A utomated message] The system whic h generated this result transmitted ref erence range: 3.5 - 10 .5 K/L. The refe rence range was not u sed to interpret this result as normal/abnor mal. RBC (test code = 789-8) 5.04 See_Comment [Au tomated message] The system [employer] generated this result transmitted ref erence range: 4.63 - 6 .08 M/L. The refe rence range was not u sed to interpret this result as normal/abnor mal. MCHC (test code = 786-4) 34.7 See_Comment [A utomated message] The system [employer] generated this result transmitted ref erence range: [...] See_Comment [Aut omated message] 777-3) The system [employer] generated this result transmitted ref erence range: 150 - 45 0 K/CU MM. The referen ce range was not u sed to interpret this result as normal/abnor mal. MPV (test code = 11.7 fL 9.4-12.4 38964-9) nRBC (test code = 413) 0 See_Comment [Aut omated message] The system [employer] generated this result transmitted ref erence range: [...] H [Aut omated message] 670) The system [employer] generated this result transmitted ref erence range: 1.78 - 5 .38 K/L. The refe rence range was not u sed to interpret this result as normal/abnor mal. # Lymphs (test code = 1.74 See_Comment [Auto mated message] 414) The system [employer] generated this result transmitted ref erence range: 1.32 - 3 .57 K/L. The refe rence range was not u sed to interpret this result as normal/abnor mal. # Monos (test code = 0.47 See_Comment [Autom ated message] 415) The system [employer] generated this result transmitted ref erence range: 0.30 - 0 .82 K/L. The refe rence range was not u sed to interpret this result as normal/abnor mal. # Eos (test code = 416) 0.21 See_Comment [Au tomated message] The system [employer] generated this result transmitted ref erence range: 0.04 - 0 .54 K/L. The refe rence range was not u sed to interpret this result as normal/abnor mal. # Baso (test code = 417) 0.03 See_Comment [A utomated message] The system [employer] generated this result transmitted ref erence range: 0.01 - 0 .08 K/L. The refe rence range was not u sed to interpret this result as normal/abnor mal. Immature 1 % 0-1 Granulocytes-Relative (test code = 2801) Lab Interpretation (test Abnormal code = 83769-7) [facility] with platelet count + automated [id number] 04:43:19 Test Item Value Reference Range Interpretation Comments WBC (test code = 6690-2) 9.6 See_Comment [A utomated message] The system [employer] generated this result transmitted ref erence range: 3.5 - 10 .5 K/L. The refe rence range was not u sed to interpret this result as normal/abnor mal. RBC (test code = 789-8) 5.04 See_Comment [Au tomated message] The system [employer] generated this result transmitted ref erence range: 4.63 - 6 .08 M/L. The refe rence range was not u sed to interpret this result as normal/abnor mal. MCHC (test code = 786-4) 34.7 See_Comment [A utomated message] The system [employer] generated this result transmitted ref erence range: [...] See_Comment [Aut omated message] 777-3) The system [employer] generated this result transmitted ref erence range: 150 - 45 0 K/CU MM. The referen ce range was not u sed to interpret this result as normal/abnor mal. MPV (test code = 11.7 fL 9.4-12.4 93529-1) nRBC (test code = 413) 0 See_Comment [Aut omated message] The system [employer] generated this result transmitted ref erence range: [...] H [Aut omated message] 670) The system [employer] generated this result transmitted ref erence range: 1.78 - 5 .38 K/L. The refe rence range was not u sed to interpret this result as normal/abnor mal. # Lymphs (test code = 1.74 See_Comment [Auto mated message] 414) The system [employer] generated this result transmitted ref erence range: 1.32 - 3 .57 K/L. The refe rence range was not u sed to interpret this result as normal/abnor mal. # Monos (test code = 0.47 See_Comment [Autom ated message] 415) The system [employer] generated this result transmitted ref erence range: 0.30 - 0 .82 K/L. The refe rence range was not u sed to interpret this result as normal/abnor mal. # Eos (test code = 416) 0.21 See_Comment [Au tomated message] The system [employer] generated this result transmitted ref erence range: 0.04 - 0 .54 K/L. The refe rence range was not u sed to interpret this result as normal/abnor mal. # Baso (test code = 417) 0.03 See_Comment [A utomated message] The system [employer] generated this result transmitted ref erence range: 0.01 - 0 .08 K/L. The refe rence range was not u sed to interpret this result as normal/abnor mal. Immature 1 % 0-1 Granulocytes-Relative (test code = 2801) Lab Interpretation (test Abnormal code = 58500-0) [facility] W/PLT COUNT & AUTO [id number] 04:43:19 Test Item Value Reference Range Interpretation [...] % 0-1 PERCENT (BEAKER) (test code = 0531)
--- NOTE | 2023-03-21 20:17 | EDPHYS ---
Physician Documentation [facility] Name: Abdelrahman Chavez Age: 27 yrs Sex: Male : 1995 Arrival Date: 03/21/2023 Time: 19:35 Bed 4 Private MD: ED Physician Lorenzo Arreola HPI: 03/21 20:11 This 27 yrs old Male presents to ER via Ambulatory with complaints of Facial sp4 Droop, Numbness of face. 20:11 27-year-old male with history of depression on Lexapro and history of mood disorder on sp4 Lamictal, presents with acute right facial paralysis starting at about 10 AM this morning.. 22:09 Patient has diabetes in the family.. . sp4 Historical: - Allergies: 19:48 No Known Allergies; mb9 - PMHx: 19:48 Anxiety; Asthma; Depression; mb9 - PSHx: 19:48 None; mb9 - Immunization history:: Adult Immunizations up to date. - Social history:: Smoking status: Patient denies any tobacco usage or history of. - Family history:: not pertinent. ROS: 22:11 Constitutional: Negative for fever, chills, and weight loss, positive right facial sp4 movement deficit and numbness. 22:15 All other systems are negative, sp4 Exam: 22:15 Constitutional: This is a well developed, well nourished patient who is awake, alert, sp4 and in no acute distress. Head/Face: Normocephalic, atraumatic. There is signs of right facial paralysis the right forehead musculature paralysis consistent with acute Zhang's palsy. The eye closes all the way , no sign of conjunctivitis or corneal conjunctival dryness. Exam is consistent with acute with right-sided Zhang's palsy Eyes: Pupils equal round and reactive to light, extra-ocular motions intact. Lids and lashes normal. Conjunctiva and sclera are not injected. Cornea within normal limits. Periorbital areas with no swelling, redness, or edema. ENT: Nares patent. No nasal discharge, no septal abnormalities noted. Tympanic membranes are normal and external auditory canals are clear. Oropharynx with no redness, swelling, or masses, exudates, or evidence of obstruction, uvula midline. Mucous membranes moist. Neck: Trachea midline, no thyromegaly or masses palpated, and no cervical lymphadenopathy. Supple, full range of motion without nuchal rigidity, or vertebral point tenderness. Chest/axilla: Normal chest wall appearance and motion. Nontender with no deformity. No lesions are appreciated. Cardiovascular: Regular rate and rhythm with a normal S1 and S2. No gallops, murmurs, or rubs. Normal PMI, no JVD. No pulse deficits. Respiratory: Lungs have equal breath sounds bilaterally, clear to auscultation and percussion. No rales, rhonchi or wheezes noted. No increased work of breathing, no retractions or nasal flaring. Abdomen/GI: Soft, non-tender, with normal bowel sounds. No distension or tympany. No guarding or rebound. No evidence of tenderness throughout. Back: No spinal tenderness. No costovertebral tenderness. Skin: Warm, dry with normal turgor. Normal color with no rashes, no lesions, and no evidence of cellulitis. MS/ Extremity: Pulses equal, no cyanosis. Neurovascular intact. Full, normal range of motion. Neuro: Awake and alert, GCS 15, oriented to person, place, time, and situation. Right facial nerve paralysis consistent with acute with a right-sided Zhang's palsy, other cranial nerve cranial nerves grossly intact. Motor strength 5/5 in all extremities. Sensory grossly intact. No sign of CVA Psych: Awake, alert, with orientation to person, place and time. Behavior, mood, and affect are within normal limits Vital Signs: 19:35 BP 141 / 88; Pulse 85; Resp 18; Temp 98.4; Pulse Ox 100% ; Weight 176.9 kg; Height 5 mb9 ft. 11 in. ; Pain 0/10; 20:30 BP 144 / 82; Pulse 86; Resp 18 S; Pulse Ox 97% on R/A; as6 22:17 BP 133 / 75; Pulse 88; Resp 18 S; Pulse Ox 97% on R/A; as6 19:35 Body Mass Index 54.39 (176.90 kg, 180.34 cm) mb9 19:35 Pain Scale: Adult mb9 NIH Stroke Scale Scores: 22:15 NIHSS Score: 2 sp4 Stacey Coma Score: 22:15 Eye Response: spontaneous(4). Motor Response: obeys commands(6). Verbal Response: sp4 oriented(5). Total: 15. MDM: 20:16 Patient medically screened. sp4 22:18 Data reviewed: vital signs, nurses notes, lab test result(s), radiologic studies, plain sp4 films. Consideration of Admission/Observation Escalation of care including admission/observation considered. ED course: Patient's right facial paralysis consistent with acute onset right-sided Zhang's palsy by description starting at 10 AM. Patient has no sign of CVA, NIHSS is 2, but in the context of acute right Zhang's palsy there is no sign of CVA. Patient does not warrant CT head, incidentally discovered patient has elevated blood sugar 284. Laboratory measurements confirm patient's blood sugar 284 within diabetic range. For acute Zhang's palsy patient will be prescribed Valtrex twice a day for 10 days. Prednisone not indicated secondary to hyperglycemia. Patient was prescribed metformin twice a day for 30 days. Advised patient diabetic diet . Patient was advised to see primary care physician in the next 2 weeks for diabetes management. . 03/21 19:46 Order name: Basic Metabolic Panel; Complete Time: 22:01 rt 03/21 19:46 Order name: CBC with Diff; Complete Time: 21:31 rt 03/21 19:46 Order name: Hepatic Function; Complete Time: 22:01 rt 03/21 19:46 Order name: High Sensitivity Troponin; Complete Time: 22:01 rt 03/21 19:46 Order name: Magnesium; Complete Time: 22:01 rt 03/21 19:46 Order name: Protime (+inr); Complete Time: 21:31 rt 03/21 19:46 Order name: Ptt, Activated; Complete Time: 21:31 rt 03/21 20:28 Order name: Glucose, Ancillary Testing; Complete Time: 21:07 EDMS 03/21 19:46 Order name: Stroke CXR 1 View; Complete Time: 21:07 rt 03/21 19:46 Order name: Accucheck rt 03/21 19:46 Order name: Cardiac monitoring rt 03/21 19:46 Order name: EKG - Nurse/Tech rt 03/21 19:46 Order name: IV Saline Lock; Complete Time: 20:54 rt 03/21 19:46 Order name: Labs collected and sent; Complete Time: 20:54 rt 03/21 19:46 Order name: NPO rt 03/21 19:46 Order name: O2 Per Protocol; Complete Time: 22:04 rt 03/21 19:46 Order name: O2 Sat Monitoring; Complete Time: 22:04 rt 03/21 19:46 Order name: Stroke Swallow Screen rt Administered Medications: No medications were administered Disposition Summary: 03/21/23 22:05 Discharge Ordered Notes: Location: Home(03/21/23 22:05) sp4 Problem: new(03/21/23 22:05) sp4 Symptoms: have improved(03/21/23 22:05) sp4 Condition: Stable(03/21/23 22:05) sp4 Diagnosis - Type 2 diabetes mellitus with hyperglycemia sp4 - Zhang's palsy(03/21/23 22:05) sp4 - Right Zhang's palsy, new onset diabetes mellitus type 2 with hyperglycemia sp4 Followup: sp4 - With: Private Physician - When: 7 - 10 days - Reason: Recheck today's complaints Discharge Instructions: - Discharge Summary Sheet sp4 - Zhang's Palsy, Adult sp4 - Diabetes Mellitus and Nutrition, Adult sp4 Forms: - Patient Portal Instructions sp4 Prescriptions: - valacyclovir 1 gram Oral tablet - take 1 tablet ORAL route 2 times per day for 10 days; 20 tablet; Refills: 0, sp4 Product Selection Permitted - Metformin 500 mg Oral tablet - take 1 tablet ORAL route every 12 hours for 30 days Then take 1 tablet with sp4 morning meals AND evening meals; 60 tablet; Refills: 0, Product Selection Permitted NIH Stroke Scale - NIH Stroke Score Date: 03/21/2023 Time: 22:15 Total Score = 2 10. Dysarthria (speech clarity - read or repeat words) - 0(Normal) 11. Extinction and Inattention (visual/tactile/auditory/spatial/personal) - 0(No abnormality) 1a. Level of Consciousness (LOC) - 0(Alert) 1b. Level of Consciousness (LOC) (Month \T\ Age) - 0(Both) 1c. LOC Commands (Open \T\ Closes Eyes/Basic Combatant Swimmer) - 0(Both) 2. Best Gaze (Lateral Gaze Paresis) - 0(Normal) 3. Visual Field Loss - 0(No visual loss) 4. Facial Palsy - 2(Partial paralysis) 5a. Left Arm: Motor (10-second hold) - 0(No drift) 5b. Right Arm: Motor (10-second hold) - 0(No drift) 6a. Left Leg: Motor (5-second hold - always test supine) - 0(No drift) 6b. Right Leg: Motor (5-second hold - always test supine) - 0(No drift) 7. Limb Ataxia (finger/nose \T\ heel/verduzco - test with eyes open) - 0(Absent) 8. Sensory Loss (pinprick arms/legs/face) - 0(Normal) 9. Best Language: Aphasia (description/naming/reading) - 0(No aphasia) Initials: sp4 Signatures: Dispatcher [employer] EDMS Eugenia Raymundo, RN RN mb9 Cuate Nicole MD MD rt Lorenzo Arreola MD MD sp4 Corrections: (The following items were deleted from the chart) 20:07 19:47 CT-STROKE BRAIN W/O CONTRAST+CT.RAD.BRZ ordered. EDMS EDMS 20:20 20:16 Home sp4 sp4 20:20 20:16 new sp4 sp4 20:20 20:16 have improved sp4 sp4 20:20 20:16 Stable sp4 sp4 20:20 20:16 Zhang's palsy sp4 sp4 20:20 20:16 Right Zhang's palsy sp4 sp4 20:30 19:46 Head Angio+CT.RAD.BRZ ordered. EDMS EDMS 20:31 19:46 Neck Angio+CT.RAD.BRZ ordered. EDMS EDMS 20:31 20:07 Head Brain Wo Cont ordered. EDMS EDMS
--- NOTE | 2023-03-21 20:17 | ER ---
Nurse's Notes [facility] Name: Abdelrahman Chavez Age: 27 yrs Sex: Male : 1995 Arrival Date: 03/21/2023 Time: 19:35 Bed 4 Private MD: Diagnosis: Type 2 diabetes mellitus with hyperglycemia;Zhang's palsy;Right Zhang's palsy, new onset diabetes mellitus type 2 with hyperglycemia Presentation: 03/21 19:35 Chief complaint: Patient states: "I woke up at 0900 am this morning and noticed mb9 numbness/tingling of my right lip. Then my face started drooping. My mom has a history of Lee Palsy but I wanted to get checked out". 19:35 Method Of Arrival: Ambulatory mb9 19:35 Coronavirus screen: Vaccine status: Patient reports being unvaccinated. Ebola Screen: mb9 No symptoms or risks identified at this time. No acute neurological deficit is noted. Initial Sepsis Screen: Does the patient meet any 2 criteria? No. Patient's initial sepsis screen is negative. Does the patient have a suspected source of infection? No. Patient's initial sepsis screen is negative. Risk Assessment: Do you want to hurt yourself or someone else? Patient reports no desire to harm self or others. Onset of symptoms was March 21, 2023. 19:35 Acuity: NEAL 2 mb9 Triage Assessment: 19:48 The onset of the patients symptoms was more than six hours ago. General: Appears in no mb9 apparent distress. Behavior is calm, cooperative. Pain: Denies pain. EENT: No signs and/or symptoms were reported regarding the EENT system. Neuro: Lopez Agitation-Sedation Scale (RASS): 0 - Alert and Calm Level of Consciousness is awake, alert, obeys commands, Oriented to person, place, time, situation, Appropriate for age Lease Picker are equal bilaterally Moves all extremities. Gait is steady, Speech is normal, Facial droop on right, Pupils are PERRLA, Numbness in numbness on right side of lips. Cardiovascular: Patient's skin is warm and dry. Respiratory: Airway is patent Respiratory effort is even, unlabored, Respiratory pattern is regular, symmetrical. GI: No signs and/or symptoms were reported involving the gastrointestinal system. : No signs and/or symptoms were reported regarding the genitourinary system. Derm: Skin is pink, warm \\T\\ dry. Musculoskeletal: Range of motion: intact in all extremities. Historical: - Allergies: 19:48 No Known Allergies; mb9 - PMHx: 19:48 Anxiety; Asthma; Depression; mb9 - PSHx: 19:48 None; mb9 - Immunization history:: Adult Immunizations up to date. - Social history:: Smoking status: Patient denies any tobacco usage or history of. - Family history:: not pertinent. Screenin:16 [facility] ED Fall Risk Assessment (Adult) Score/Fall Risk Level 0 - 2 = Low Risk. Abuse as6 screen: Denies threats or abuse. Denies injuries from another. Nutritional screening: No deficits noted. Tuberculosis screening: No symptoms or risk factors identified. Assessment: 19:40 General: Appears comfortable, Behavior is calm, cooperative. Neuro: Level of ha1 Consciousness is awake, alert, obeys commands, Oriented to person, place, time, situation. Cardiovascular: Capillary refill < 3 seconds Patient's skin is warm and dry. Respiratory: Airway is patent Respiratory effort is even, unlabored, Respiratory pattern is regular, symmetrical. Musculoskeletal: Circulation, motion, and sensation intact. Range of motion: intact in all extremities. Vital Signs: 19:35 BP 141 / 88; Pulse 85; Resp 18; Temp 98.4; Pulse Ox 100% ; Weight 176.9 kg; Height 5 mb9 ft. 11 in. ; Pain 0/10; 20:30 BP 144 / 82; Pulse 86; Resp 18 S; Pulse Ox 97% on R/A; as6 22:17 BP 133 / 75; Pulse 88; Resp 18 S; Pulse Ox 97% on R/A; as6 19:35 Body Mass Index 54.39 (176.90 kg, 180.34 cm) mb9 19:35 Pain Scale: Adult mb9 Stacey Coma Score: 22:15 Eye Response: spontaneous(4). Motor Response: obeys commands(6). Verbal Response: sp4 oriented(5). Total: 15. NIH Stroke Scale Scores: 22:15 NIHSS Score: 2 sp4 ED Course: 19:40 Patient arrived in ED. jj6 19:48 Triage completed. mb9 19:48 Arm band placed on. mb9 19:59 Stroke CXR 1 View In Process Unspecified. EDMS 20:05 Potepalov, Lorenzo, MD is Attending Physician. sp4 20:15 Angel Talavera MD is Referral Physician. sp4 22:16 Bed in low position. Call light in reach. Side rails up X2. Provided Education on: as6 follow up. 22:16 No provider procedures requiring assistance completed. IV discontinued, intact, as6 bleeding controlled, No redness/swelling at site. Pressure dressing applied. Administered Medications: No medications were administered Medication: 22:16 VIS not applicable for this client. as6 Outcome: 20:16 Discharge ordered by MD. sp4 22:05 Discharge ordered by MD. sp4 22:17 Discharged to home ambulatory, with significant other, as6 22:17 Condition: stable 22:17 Discharge instructions given to patient, Instructed on discharge instructions, follow up and referral plans. medication usage, Demonstrated understanding of instructions, follow-up care, medications, Prescriptions given X 2, 22:18 Patient left the ED. as6 NIH Stroke Scale - NIH Stroke Score Date: 03/21/2023 Time: 22:15 Total Score = 2 10. Dysarthria (speech clarity - read or repeat words) - 0(Normal) 11. Extinction and Inattention (visual/tactile/auditory/spatial/personal) - 0(No abnormality) 1a. Level of Consciousness (LOC) - 0(Alert) 1b. Level of Consciousness (LOC) (Month \\T\\ Age) - 0(Both) 1c. LOC Commands (Open \\T\\ Closes Eyes/Pyrometer Temperature Regulator) - 0(Both) 2. Best Gaze (Lateral Gaze Paresis) - 0(Normal) 3. Visual Field Loss - 0(No visual loss) 4. Facial Palsy - 2(Partial paralysis) 5a. Left Arm: Motor (10-second hold) - 0(No drift) 5b. Right Arm: Motor (10-second hold) - 0(No drift) 6a. Left Leg: Motor (5-second hold - always test supine) - 0(No drift) 6b. Right Leg: Motor (5-second hold - always test supine) - 0(No drift) 7. Limb Ataxia (finger/nose \\T\\ heel/verduzco - test with eyes open) - 0(Absent) 8. Sensory Loss (pinprick arms/legs/face) - 0(Normal) 9. Best Language: Aphasia (description/naming/reading) - 0(No aphasia) Initials: sp4 Signatures: Dispatcher [employer] Maira Hayes [email or web address] Rashid Osullivan RN RN as6 Yee Chung RN RN ha1 Zackary, Eugenia Hurtado RN RN mb9 Lorenzo Arreola MD MD sp4
--- NOTE | 2023-03-21 20:33 | RAD REPORT ---
EXAM DESCRIPTION: RAD - Chest Single View - 03/21/2023 7:57 pm CLINICAL HISTORY: cva COMPARISON: Chest Pa And Lat (2 Views) dated 12/11/2021; Chest Single View dated 04/25/2021; Chest Sin gle View dated 02/05/2021 FINDINGS: Lines: None. Lungs: Low lung volumes which accentuates the pulmonary vasculature . No definite edema. No consolida tive airspace disease. Pleural: No significant pleural effusions or pneumothorax. Cardiac: The heart size is within normal limits. Mediastinum: Within normal limits. Bones: No acute fractures. Other: None IMPRESSION: Low lung volumes which accentuates the pulmonary vasculature. No definite acute process.
[2023-03-21 21:17] LABS: Hematocrit 47.1 % (39.6-49.0); Lymphocytes % 19.6 % (15.3-44.8); MCV 84.7 fL (80-100); MPV 9.6 fL (7.6-11.3); Platelets 183 thou/uL (152-406); RBC Red Blood Cell Count 5.55 M/uL (4.33-5.43)
[2023-03-21 21:24] LABS: ALT/SGPT 126 U/L (16-61); AST/SGOT 48 U/L (15-37); Albumin 3.3 g/dL (3.4-5.0); Alkaline Phosphatase 111 U/L (45-117); BUN Blood Urea Nitrogen 9 mg/dL (7-18); Bicarbonate 28 mEq/L (21-32); Bilirubin Total 0.3 mg/dL (0.2-1.0); Glomerular Filtration Rate 122 ml/min (=/>90); Glucose Level 274 mg/dL (74-106); Magnesium 1.9 mg/dL (1.6-2.4); Protein, Total 7.5 g/dL (6.4-8.2); Sodium Level 133 mEq/L (136-145); Troponin High Sensitivity 6.9 pg/mL (<58.9)
[2023-03-21 21:38] LABS: Bilirubin Direct < 0.1 mg/dL (0-0.2); Bilirubin Indirect, Calculated ND mg/dL (0.2-0.8)
[2023-03-21 22:25] VITALS: TEMP 98.4
[2023-03-21 22:26] VITALS: O2SAT 97
[2023-03-21 22:28] VITALS: BP 133/75
== END 2023-03-21 22:18 | disposition home or self-care (01) ==
LOC: ER 19:35
DX: G51.0 Bell's palsy (principal); E11.65 Type 2 diabetes mellitus with hyperglycemia
CPT/HCPCS: 36415; 71045; 80048; 80076; 82947; 83735; 84484; 85025; 85610; 85730; 99283